=== PATIENT | female | born 1965 | race African-American/Black ===

== ENCOUNTER 2021-10-03 21:00 | Emergency (ER) | payer OTHER, SELFPAY ==
[2021-10-03] VITALS (14 sets, daily range): BP systolic 146–224; BP diastolic 75–99; PULSE 60–84; RESP 12–24; TEMP 36.1–36.3; O2SAT 98–100
--- NOTE | ~2021-10-03 | XR_ITS ---
EXAMINATION: XR chest 1V portable INDICATION: Hypertension, headache TECHNIQUE: Portable AP chest at 2124 hours COMPARISON: None available FINDINGS: The lungs are free of acute opacities. No pleural effusion or pneumothorax. The cardiomedia stinal silhouette is normal. The visualized osseous structures are unremarkable. IMPRESSION: 1. No acute cardiopulmonary abnormality. Reviewed, dictated and finalized at location A.
--- NOTE | 2021-10-03 21:14 | ECG_ITS ---
Measurements Intervals [place] Rate: 64 P: 55 [place]: 126 QRS: 0 QRSD: 87 T: 12 QT: 410 QTc: 424 Interpretive Statements SINUS RHYTHM MINIMAL VOLTAGE CRITERIA FOR LVH, CONSIDER NORMAL VARIANT BORDERLINE ECG COMPARED TO ECG 04/27/2018 09:30:55 NO SIGNIFICANT CHANGES Electronically Signed On 10-04-2021 14:34:32 CDT by Cyrus Mackey M.D.
--- NOTE | 2021-10-03 21:15 | ED.GENADULT ---
HPI - General Adult General Chief complaint: Recheck/Abnormal Lab/Rx Stated complaint: High BP, [facility] Time Seen by Provider: 10/03/21 21:08 History of Present Illness HPI narrative: 56-year-old female presents emergency room secondary hypertension. She does not have a longstanding history of hypertension but her blood pressure began running high last week. She was seen by her physician initially put her on lisinopril took that for 5 days and she does not seem to tolerate it well and switched her over to another medication. States her blood pressure did normalize but she felt like it went back up today she checked it at home as high. She has a mild headache associated with this. Denies any chest pain shortness of breath. She has no significant past medical history. She does not smoke and she occasionally drinks alcohol. She is extremely active and plays [employer] ball frequently. Related Data Allergies Allergy/AdvReac Type Severity Reaction Status Date / Time No Known Allergies Allergy Verified 10/03/21 21:10 Review of Systems Review of Systems: CONSTITUTIONAL: Denies fever, chills, or sweats. EYES: Denies visual changes, redness, or discharge. ENT: Denies rhinorrhea, congestion, sore throat, or otalgia. CARDIOVASCULAR: Denies chest pain, palpitations, or edema. RESPIRATORY: Denies cough or dyspnea. GASTROINTESTINAL: Denies abdominal pain, nausea, vomiting, or diarrhea. GENITOURINARY: Denies dysuria or hematuria. SKIN: Denies rash or itching. MUSCULOSKELETAL: Denies back pain, joint pain, or myalgia. NEUROLOGIC: Mild headache but no associated numbness or weakness PSYCHIATRIC: Denies anxiety or depression. [facility] Past Medical History Medical History Hypertension Social History Social History Smoking status: Never smoker Alcohol intake: current Alcohol use details: Social drinker only and not on a daily basis Living arrangements: with family Occupation/Education: unemployed Exam Narrative: APPEARANCE: Well appearing, no pain or distress, well-nourished. Head Normocephalic and atraumatic. EYES: PERRLA/EOMI, conjunctivae clear. NOSE: Normal with no drainage EARS:TMS clear with Carmen, with good light reflex. THROAT: Pharynx clear, no exudate. NECK: Supple. No adenopathy, no masses. RESPIRATORY: Airway patent, respirations nonlabored. Clear to auscultation bilaterally, no rales, rhonchi, wheezing. CARDIOVASCULAR: Regular rate and rhythm without murmurs, rubs, or gallops. ABDOMINAL: Soft, nontender, nondistended, no hepatosplenomegaly Musculoskeletal: Moves all extremities. Strength/ROM intact, No edema, No calf tenderness. NEURO: Alert. Cranial nerves II through XII intact. Normal gait. Good coordination. Nonfocal examination. SKIN:: Warm, dry. Normal Color PSYCHIATRIC: Normal affect/mood, normal interaction Course Vital Signs Vital signs: Vital Signs Temperature 97.0 F L 10/03/21 21:02 Pulse Rate 84 10/03/21 21:02 Respiratory Rate 18 10/03/21 21:02 Blood Pressure 224/83 H 10/03/21 21:02 Pulse Oximetry 100 10/03/21 21:02 Temperature 97.0 F L 10/03/21 21:02 Pulse Rate 64 10/03/21 21:46 Respiratory Rate 22 H 10/03/21 21:46 Blood Pressure 153/87 H 10/03/21 21:46 Pulse Oximetry 100 10/03/21 21:31 Medical Decision Making MDM Narrative Medical decision making narrative: EKG was unremarkable. Chest x-ray shows no cardiomegaly. Laboratory test including a basic metabolic panel shows normal renal function. Patient was given labetalol 20 mg IV. Blood pressure came down about 160s over 70s. Reviewed everything with the patient and her family who is at bedside. She already has a follow-up appoint with the physician next week. Told her to continue to monitor blood pressure at home and continue the current medications. Would not make any changes to her blood pressure treatmen
[2021-10-03] MEDS: LABETALOL HCL INJ 100 MG/20 ML VIAL 20 MG IV PUSH (21:27)
[2021-10-03 21:34] LABS: Anion Gap 10 mmol/L (8-16); Blood Urea Nitrogen 11 mg/dL (7-17); Calcium 9.6 mg/dL (8.4-10.2); Carbon Dioxide 29 mmol/L (22-30); Chloride 104 mmol/L (98-107); Estimated CRCL calculation 63 ml/min; Estimated Glomerular Filt Rate > 60; Glucose 122 mg/dL (65-110); Potassium 3.5 mmol/L (3.4-5.0); Sodium 143 mmol/L (137-145)
== END 2021-10-03 22:45 | disposition home or self-care (01) ==
PROVIDERS: Emergency Provider Emergency Medicine; PCP Family Medicine
DX: I10 Essential (primary) hypertension (principal)
CPT/HCPCS: 36415; 71045; 80048; 93005; 96374; 99284

== ENCOUNTER 2021-10-04 19:15 | Emergency (ER) | payer OTHER, SELFPAY ==
--- NOTE | ~2021-10-04 | CT_ITS ---
EXAMINATION: CT BRAIN W/O DATE: 10/04/2021 20:34 INDICATION: Persistent right-sided headache. TECHNIQUE: Computed tomography (CT) of the head was performed without intravenous contrast. The dose- length product was 605.33 mGy-cm. Automated exposure control and iterative reconstruction technique w ere employed. COMPARISON: CT dated 04/27/2018 FINDINGS: Normal brain parenchymal volume for age. Normal shetty-white differentiation. No acute intrac ranial hemorrhage, infarction, mass or mass effect. No ventriculomegaly or midline shift. Midline sagittal images demonstrate a normal corpus callosum, c raniovertebral junction and sella turcica. Basilar cisterns are patent. Paranasal sinuses and mastoids are pneumatized. No depressed skull fractures. IMPRESSION: 1. No acute intracranial abnormality. Reviewed, dictated and finalized at location A.
[2021-10-04 19:22] VITALS: BP 149/86; PULSE 69; RESP 18; TEMP 36.5; O2SAT 100
[2021-10-04 19:51] VITALS: BP 140/77; O2SAT 100
--- NOTE | 2021-10-04 19:57 | ED.HA ---
HPI - Headache General Chief Complaint: Headache Stated Complaint: HTN Time Seen by Provider: 10/04/21 19:48 History of Present Illness HPI Narrative: 56-year-old female presents emergency room secondary to high blood pressure and a right-sided headache. I saw this patient in emergency room yesterday and her blood pressure was able to be treated and normalized. Chemistry panel performed at that time also was normal. She states that today her blood pressure seem to be going higher and she has a persistent right-sided headache. She does not have a history of headaches up until about a week ago when her blood pressure became out of control. She was initially seen about 7 or 8 days ago and started on lisinopril 20 mg/day. Had a continued headache so her doctor switched her over and put her on a different medication for blood pressure. She denies any visual problems. No numbness or tingling arms or legs. No nausea vomiting. Related Data Home Medications Medication Instructions Recorded Confirmed losartan 50 mg tablet mg 10/04/21 Allergies Allergy/AdvReac Type Severity Reaction Status Date / Time No Known Allergies Allergy Verified 10/04/21 19:27 Review of Systems Review of Systems: CONSTITUTIONAL: Denies fever, chills, or sweats. EYES: Denies visual changes, redness, or discharge. ENT: Denies rhinorrhea, congestion, sore throat, or otalgia. CARDIOVASCULAR: Denies chest pain, palpitations, or edema. RESPIRATORY: Denies cough or dyspnea. GASTROINTESTINAL: Denies abdominal pain, nausea, vomiting, or diarrhea. GENITOURINARY: Denies dysuria or hematuria. SKIN: Denies rash or itching. MUSCULOSKELETAL: Denies back pain, joint pain, or myalgia. NEUROLOGIC: Having right-sided headache but no associated numbness, tingling, or weakness. No visual problems. PSYCHIATRIC: Denies anxiety or depression. PMFSH Past Medical History Medical History Hypertension Social History Social History Smoking status: Never smoker Alcohol intake: current Alcohol use details: Social drinker only and not on a daily basis Exam Narrative: APPEARANCE: Well appearing, no pain or distress, well-nourished. Head Normocephalic and atraumatic. EYES: PERRLA/EOMI, conjunctivae clear. NOSE: Normal with no drainage EARS:TMS clear with Carmen, with good light reflex. THROAT: Pharynx clear, no exudate. NECK: Supple. No adenopathy, no masses. RESPIRATORY: Airway patent, respirations nonlabored. Clear to auscultation bilaterally, no rales, rhonchi, wheezing. CARDIOVASCULAR: Regular rate and rhythm without murmurs, rubs, or gallops. ABDOMINAL: Soft, nontender, nondistended, no hepatosplenomegaly Musculoskeletal: Moves all extremities. Strength/ROM intact, No edema, No calf tenderness. NEURO: Alert. Cranial nerves II through XII intact. Normal gait. Good coordination. Nonfocal examination. SKIN:: Warm, dry. Normal Color PSYCHIATRIC: Normal affect/mood, normal interaction Course Vital Signs Vital signs: Vital Signs Temperature 97.7 F 10/04/21 19:22 Pulse Rate 69 10/04/21 19:22 Respiratory Rate 18 10/04/21 19:22 Blood Pressure 149/86 H 10/04/21 19:22 Pulse Oximetry 100 10/04/21 19:22 Oxygen Delivery Room Air 10/04/21 19:22 Temperature 97.7 F 10/04/21 19:22 Pulse Rate 69 10/04/21 19:22 Respiratory Rate 18 10/04/21 19:22 Blood Pressure 151/79 H 10/04/21 20:01 Pulse Oximetry 98 10/04/21 20:01 Oxygen Delivery Room Air 10/04/21 19:22 MDM - Headache MDM Narrative Medical decision making narrative: CT scan of her head was unremarkable and the patient was reassured by this. Blood pressure has remained normal in the emergency department. We will give the patient a prescription for Catapres 0.1 mg tablets to take 1 every 8 hours as needed for systolic blood pressure greater 180 or diastolic greater than
[2021-10-04 20:01] VITALS: BP 151/79; O2SAT 98
[2021-10-04 21:02] VITALS: BP 147/90; PULSE 66; RESP 18; O2SAT 100
== END 2021-10-04 21:04 | disposition home or self-care (01) ==
PROVIDERS: Emergency Provider Emergency Medicine; PCP Family Medicine
DX: I10 Essential (primary) hypertension (principal); R51.9 Headache, unspecified
CPT/HCPCS: 70450; 99284

== ENCOUNTER 2022-03-18 16:32 | Emergency (ER) | payer OTHER, SELFPAY ==
--- NOTE | ~2022-03-18 | XR_ITS ---
EXAMINATION: XR chest 2V 03/18/2022 19:12 INDICATION: Chest pain and tightness PROCEDURE: 2 view chest COMPARISON: 10/03/2021 FINDINGS: The lungs are clear. The cardiomediastinal silhouette is within normal limits. There are no pleural effusions. There is no pneumothorax suspected. IMPRESSION: 1: NO ACUTE CARDIOPULMONARY DISEASE. Reviewed, dictated and finalized at location A. ARIAL INTERN
[2022-03-18 16:46] VITALS: BP 151/88; PULSE 69; RESP 14; TEMP 36.7; O2SAT 100
--- NOTE | 2022-03-18 18:17 | ECG_ITS ---
Measurements Intervals [place] Rate: 60 P: 51 [place]: 137 QRS: -6 QRSD: 77 T: 34 QT: 411 QTc: 412 Interpretive Statements SINUS RHYTHM RSR' IN V1 OR V2, PROBABLY NORMAL VARIANT VOLTAGE CRITERIA FOR LVH BORDERLINE ECG COMPARED TO ECG 10/03/2021 21:37:27 NO SIGNIFICANT CHANGES Electronically Signed On 03-18-2022 20:27:15 YARD JOCKEY by Anurag Dunbar D.O.
[2022-03-18 18:28] LABS: Basophils Percent Auto 0.3 % (0.2-1.2); Eosinophils Absolute Auto 0.2 K/mm3 (0-0.3); Hematocrit 40.3 % (37.0-47.0); Hemoglobin 13.4 g/dL (12.0-15.0); Immature Granulocyte Absolute 0.02 K/mm3 (0.00-0.031); Immature Granulocyte Percent A 0.2 % (0-0.5); Lymphocytes Absolute Auto 2.62 K/mm3 (0.9-3.2); Lymphocytes Percent Auto 27.8 % (18.3-44.2); Mean Corpuscular HGB Conc 33.3 g/dl (32-36); Mean Corpuscular Hemoglobin 30.2 pg (26-34); Mean Corpuscular Volume 90.8 fl (80-100); Mean Platelet Volume 11.5 fl (7.4-10.4); Monocytes Absolute Auto 0.5 K/mm3 (0.1-0.6); Monocytes Percent Auto 5.6 % (2.6-8.5); Neutrophils Absolute Auto 6.1 K/mm3 (1.3-6.7); Neutrophils Percent Auto 64.1 % (45.5-73.1); Platelet Count Result 216 k/mm3 (150-375); Red Blood Count 4.44 M/mm3 (4.2-5.4); Red Cell Distribution Width 12.3 % (11.5-14.5); White Blood Count 9.4 K/mm3 (4.5-10.0)
--- NOTE | 2022-03-18 18:33 | ED.RECABL ---
HPI - Recheck/Abnormal Lab/Rx General Chief Complaint: Recheck/Abnormal Lab/Rx Stated Complaint: high blood pressure Time Seen by Provider: 03/18/22 17:18 History of Present Illness HPI narrative: Patient is a 56-year-old female with a history of hypertension presenting with high blood pressure. Patient states that she was going to physical therapy today when she started to feel funny. States that her face felt tight. She stopped at her PCPs office to have her blood pressure checked and it was in the 200s so they sent her to the ER. Patient also complains of a persistent headache since this summer. States it started after she had COVID. States she has an appointment with neurology in April for this. She denies numbness or weakness, vision changes, speech changes, ataxia, nausea or vomiting. No fevers or chills, chest pain, shortness of breath, leg swelling. Related Data Home Medications Medication Instructions Recorded Confirmed losartan 50 mg tablet mg 10/04/21 Allergies Allergy/AdvReac Type Severity Reaction Status Date / Time No Known Allergies Allergy Verified 03/18/22 18:16 Review of Systems Review of Systems: All systems reviewed & are unremarkable except as noted in HPI and below PMFSH Past Medical History Medical History Hypertension Social History Social History Smoking status: Never smoker Alcohol intake: current Alcohol use details: Social drinker only and not on a daily basis Living arrangements: with family Occupation/Education: unemployed Exam Narrative: GENERAL: Well-appearing, well-nourished, and in no acute distress. HEAD: Normocephalic, atraumatic. EYES: PERRLA and EOMI. ENT: Nares clear, no rhinorrhea or epistaxis. Mucous membranes moist. NECK: Supple. CHEST: Clear to auscultation. No respiratory distress. HEART: Regular rate and rhythm. No murmur heard. Normal peripheral pulses. ABDOMEN: Soft, nontender, nondistended, normal active bowel sounds. EXTREMITIES: Normal range of motion. No edema. SKIN: Warm, dry, no rash. NEURO: No focal deficits. Alert and oriented x3. PSYCH: Normal mood and affect. Course Vital Signs Vital signs: Vital Signs Temperature 98.0 F 03/18/22 16:46 Pulse Rate 69 03/18/22 16:46 Respiratory Rate 14 03/18/22 16:46 Blood Pressure 151/88 H 03/18/22 16:46 Pulse Oximetry 100 03/18/22 16:46 Oxygen Delivery Room Air 03/18/22 16:46 Temperature 98.0 F 03/18/22 16:46 Pulse Rate 67 03/18/22 20:47 Respiratory Rate 16 03/18/22 20:47 Blood Pressure 129/89 03/18/22 20:47 Pulse Oximetry 100 03/18/22 20:47 Oxygen Delivery Room Air 03/18/22 16:46 MDM - Recheck/Abnormal Lab/Rx MDM Narrative Medical decision making narrative: Patient is a 56-year-old female presenting with hypertension. Blood pressure here is 150s over 80s. Vitals are otherwise within normal limits. Patient is well-appearing and in no acute distress. Exam is remarkable for the above. Neurologically intact. EKG per my interpretation shows normal sinus rhythm, normal axis and intervals, no acute ischemic changes. It appears similar to prior EKG. Blood work is unremarkable. Normal renal function. Troponin is undetectable. Patient received a migraine cocktail and on reevaluation she is resting comfortably. She states that her headache has improved. Her last blood pressure was 130 over 90s. Discussed the reassuring work-up. Advised that she follow-up with her PCP as well as neurology regarding her ongoing headaches. Appropriate return precautions given. Patient voiced understanding and is agreeable with plan. Discharged in stable condition peer Differential Diagnosis Differential diagnosis: Likely other (hypertension, migraine, headache, anxiety) Lab Data 03/18/22 18:19 03/18/22 18:19 Labs: Lab Result
[2022-03-18 18:41] LABS: Alanine Aminotransferase 25 U/L (6-35); Albumin Level 4.5 g/dL (3.5-5.1); Alkaline Phosphatase 79 U/L (38-126); Anion Gap 5 mmol/L (8-16); Aspartate Amino Transferase 31 U/L (14-36); Bilirubin,Total 0.3 mg/dL (0.2-1.3); Blood Urea Nitrogen 9 mg/dL (7-17); Calcium 9.3 mg/dL (8.4-10.2); Carbon Dioxide 34 mmol/L (22-30); Chloride 104 mmol/L (98-107); Estimated CRCL calculation 73 ml/min; Estimated Glomerular Filt Rate > 60; Glucose 90 mg/dL (65-110); Lipase 185 U/L (23-300); Potassium 3.6 mmol/L (3.4-5.0); Sodium 143 mmol/L (137-145)
[2022-03-18 18:52] LABS: Troponin I < 0.012 ng/mL (0.000-0.034)
[2022-03-18 18:56] LABS: INR 1.1; Prothrombin Time 13.3 Seconds (11.1-14.7)
[2022-03-18 18:57] LABS: Partial Thromboplastin Time 27.7 SECONDS (22.3-36.8)
--- NOTE | 2022-03-18 19:14 | PC.NURSE ---
Assumed care of pt. at this time. Report from KOSTA Fitzgerald
[2022-03-18] MEDS: KETOROLAC 15 MG/ML VIAL (*BKC) IV PUSH (19:18)
[2022-03-18] MEDS: SODIUM CHLORIDE 0.9% IV 1,000 ML 999 ML IV CONT (19:18)
[2022-03-18] MEDS: diphenhydrAMINE HCl INJ 50 MG/ML VIAL 25 MG IV PUSH (19:18)
[2022-03-18] MEDS: PROCHLORPERAZINE EDISYLATE 10 MG/2 ML VIAL IV PUSH (19:18)
--- NOTE | 2022-03-18 19:36 | PC.NURSE ---
Patient report given to KOSTA Lombardo. All questions answered and care of patient transferred.
[2022-03-18 19:40] VITALS: BP 166/99; PULSE 60; RESP 18; O2SAT 98
[2022-03-18 20:47] VITALS: BP 129/89; PULSE 67; RESP 16; O2SAT 100
== END 2022-03-18 20:48 | disposition home or self-care (01) ==
PROVIDERS: Emergency Provider Emergency Medicine; PCP Family Medicine
DX: I10 Essential (primary) hypertension (principal); R51.9 Headache, unspecified; Z86.16 Personal history of COVID-19; R94.31 Abnormal electrocardiogram [ECG] [EKG]
CPT/HCPCS: 36415; 71046; 80053; 83690; 84484; 85025; 85610; 85730; 93005; 96361; 96374; 96375; 99284; J0780; J1200; J1885; J7030

== ENCOUNTER 2022-03-22 09:02 | Outpatient (CLI) | payer OTHER, SELFPAY ==
--- NOTE | ~2022-03-22 | US_ITS ---
US breast LT limited 03/22/2022 10:09 Indication: Mass seen on prior outside examination. Biopsy requested. Procedure: High-resolution ultrasound of the left breast in the area of concern on prior examination. Comparison: Ultrasound dated 03/15/2022 Findings: At 1:00, 7 cm from the nipple, there is an oval hypoechoic circumscribed mass with parallel orientation, no posterior features and no internal vascularity measuring 5 mm. This area blends in w ith surrounding fibroglandular tissue and is most likely benign focal fibroglandular content or benig n complicated cyst or fibroadenoma. Impression: 1: Probable benign 5 mm left breast mass. Biopsy was canceled. Short-term follow-up diagnostic left m ammogram and ultrasound recommended. BI-RADS CATEGORY 3-PROBABLY BENIGN FINDING RECOMMENDATION: 6 month follow up recommended. Reviewed, dictated and finalized at location A. ETIC COACH Impression: 1: Probable benign 5 mm left breast mass. Biopsy was canceled. Short-term follo w-up diagnostic left mammogram and ultrasound recommended. BI-RADS CATEGORY 3-PROBABLY BENIGN FINDING RECOMMENDATION: 6 month follow up recommended.
== END 2022-03-22 09:03 | disposition home or self-care (01) ==
PROVIDERS: PCP Family Medicine; Visit Provider Family Medicine
DX: R92.8 Other abnormal and inconclusive findings on diagnostic imaging of breast (principal)
CPT/HCPCS: 76642

== ENCOUNTER 2024-01-05 10:52 | Outpatient (CLI) | payer OTHER, SELFPAY ==
--- NOTE | ~2024-01-05 | MR_ITS ---
EXAMINATION: MR ankle LT wo con DATE: 01/05/2024 11:24 INDICATION: Strain of the peroneal muscle and tendon. Left ankle pain and swelling TECHNIQUE: Magnetic resonance imaging (MRI) of the left ankle was performed without intravenous contr ast. Sequences included sagittal, coronal, and axial proton-density weighted fast spin echo without a nd with fat saturation. COMPARISON: None. FINDINGS: Medial ankle ligaments: Deep and superficial deltoid ligaments as well as the spring ligament are normal. Lateral ankle ligaments: The anterior and posterior inferior tibiofibular ligaments are normal. The posterior talofibular liga ment is normal. There is attenuation of the anterior talofibular ligament without surrounding edema c onsistent with chronic relatively high-grade partial tear. Low-grade chronic sprain/mild partial tear of the calcaneofibular ligament which is normal in thickness but with mild increased signal. Tendons: Achilles tendon is normal. The peroneus longus tendon is normal. Tendinopathy of the peroneus brevis tendon with longitudinal split tear beginning at the level of the retromalleolar groove. There is pro minent expansion and increased intrasubstance signal of the tendon beginning at the level of the tip of the lateral malleolus and extending 2 cm distally. There is a celery stalk appearance of tendon fi bers extending through this region consistent with severe tendinopathy. At the distal margin of this region of tendon expansion is a more homogeneously T2 hyperintense intrasubstance ganglion cyst measu ring 4 mm in diameter 1.5 cm proximal to distal. The tibialis anterior, extensor hallucis longus, extensor digitorum longus and extensor peroneus tertius tendons are normal. The tibialis posterior, flexor digitorum longus an d flexor hallucis longus tendons are normal. Plantar fascia: Plantar aponeurosis is normal. Bones/other: Bone alignment is normal. No fracture or pathologic marrow replacing process. 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 Marrow signal is otherwise unremarkable throughout. Fluid: Small amount of fluid in the recess at the lateral aspect of the talonavicular articulation. Otherwis e physiologic amount fluid in the joint spaces. IMPRESSION: 1. Peroneus brevis longitudinal split tear with severe focal centered immediately distal to the tip o f the lateral malleolus and small associated intrasubstance ganglion cyst. Could not exclude associat ed mild partial tear although no discrete torn tear margin is appreciated. 2. Chronic lateral ankle sprain with high-grade partial tear of the anterior talofibular ligament and low-grade sprain/partial tear of the calcaneofibular ligament. 2. 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 Reviewed, dictated and finalized at location B. THERAPY TEACHER IMPRESSION: 1. Peroneus brevis longitudinal split tear with severe focal centered immediate ly distal to the tip of the lateral malleolus and small associated intrasubstan ce ganglion cyst. Could not exclude associated mild partial tear although no di screte torn tear margin is appreciated. 2. Chronic lateral ankle sprain with high-grade partial tear of the anterior ta lofibular ligament and low-grade sprain/partial tear of the calcaneofibular lig ament. 2. 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
== END 2024-01-05 10:53 | disposition home or self-care (01) ==
LOC: MICIMG 10:53
PROVIDERS: PCP Physician Assistant; Visit Provider Orthopaedic Surgery
DX: S86.312A Strain of muscle(s) and tendon(s) of peroneal muscle group at lower leg level, left leg, initial encounter (principal); S93.492A Sprain of other ligament of left ankle, initial encounter; M19.072 Primary osteoarthritis, left ankle and foot; M94.272 Chondromalacia, left ankle and joints of left foot; X58.XXXA Exposure to other specified factors, initial encounter
CPT/HCPCS: 73721

== ENCOUNTER 2024-03-09 08:26 | Outpatient (CLI) | payer OTHER, SELFPAY ==
--- NOTE | 2024-03-09 08:30 | ECG_ITS ---
Test Date: 2024-03-09 08:43:16 Measurements Intervals [place] Rate: 75 P: 61 [place]: 136 QRS: 0 QRSD: 98 T: 4 QT: 368 QTc: 411 Interpretive Statements SINUS RHYTHM INCOMPLETE RIGHT BUNDLE BRANCH BLOCK [90+ ms QRS DURATION, TERMINAL R IN V1/V2, 40+ ms S IN I/aVL/V4/V5/V6] No previous ECG available for comparison Electronically Signed On 03-09-2024 14:46:16 PROCESS DEVELOPMENT CHEMIST by Kevin Wei M.D.
--- OUTSIDE RECORDS SUMMARY | 2024-03-15 05:31 | XMS_ITS | Continuity of Care Document ---
Author Name [facility] Organization [facility] Care Team Providers Care Staff Software Engineer Name Role Phone [facility] Unavailable Unavailable Problems Combined list of problems from Department of Defense and Veterans Affairs facilities. It does not include entries that were removed or entered in error. Problem Status Onset Date Problem Type Date of Resolution Comments Source joint pain in the left knee Active Condition DoD conditions influencing health status Active Condition DoD disturbance of gait Active Condition Do D Aftercare Following Surgery Of Musculoskeletal System Active Condition DoD Occupational Therapy Active Condition DoD Aftercare Orthopedic Active Condition DoD difficulty walking Active Condition DoD visit for: pre-procedural orthopedic exam Inactive Condition DoD synovitis and tenosynovitis hand/wrist Active Condition DoD postmenopausal bleeding Active Condition DoD neuritis lumbar Active Condition DoD Nail Discoloration Inactive Condition Do D vitamin D deficiency Active Condition DoD dermatitis Inactive Condition DoD Patient Education Active Condition DoD menopause symptomatic Active Condition DoD astigmatism regular Active Condition Do D Mammogram Screening Inactive Condition D oD pruritus ani Inactive Condition DoD oligomenorrhea Active Condition DoD viral syndrome Inactive Condition DoD visit for: exam following treatment Inactive Condition DoD presbyopia Active Condition DoD Contact Lenses Prescription And Direction Of Fitting Inactive Condition DoD dry eye syndrome Active Condition DoD conjunctivitis Inactive Condition DoD the time between periods has increased (oligomenorrhea) Active Condition DoD sinusitis acute maxillary Inactive Condition DoD visit for: laboratory Inactive Condition DoD visit for: issue repeat prescription Inactive Condition 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 DoD astigmatism Active Condition DoD refractive error - hypermetropia Active Condition DoD routine ophthalmological exam Inactive Condition DoD fracture of radius proximal end closed head Inactive Condition DoD location of accident - home Inactive Condition DoD fracture of radius proximal end closed head left Inactive Condition DoD bronchitis Inactive Condition DoD cystitis acute Inactive Condition DoD lumbago Active Condition DoD visit for: issue medical certificate Active Condition DoD Physical Examination Active Condition DoD Other Physical Therapy Active Condition DoD joint pain, localized in the knee Active Condition DoD sinusitis acute Active Condition 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, benign leiomyoma Active Condition DoD allergic rhinitis Active Condition DoD Aftercare Following Surgery Active Condition DoD venous insufficiency Active Condition DoD visit for: preoperative exam Active Condition DoD varicose veins of lower extremities with swelling Active Condition DoD varicose veins of lower extremities with pain Active Condition DoD hypoglycemia Active Condition DoD tendonitis Active Condition Right gre at toe, reassurance, stretches DoD varicose veins of lower extremities Active Condition DoD ovarian cyst Active Condition DoD dysfunctional uterine bleeding Active Condition DoD visit for: screening exam for malignant neoplasm cervix Active Condition DoD routine gynecological exam with cervical pap smear Inactive Condition Will order pelv ic ultrasound for evaluation of dysfunctional uterine bleeding, will check labs including a TSH, FSH LHThe patient was instructed to make a follow-up appointment to review lab work and ultrasound, mammogram referral pleasePreventive counseling regarding diet exercise and self breast exams discussed DoD cervical dysplasia: mild Active Condition DoD visit for: administrative purpose Inactive Condition DoD urinary tract infection Active Condition on vacation - long car ride. DoD Cervical Pap Smear Inactive Condition Do D visit for: contraceptive surveillance pill Active Condition DoD Gynecologic Services Contraceptive Management Active Condition Pt requests mini-pill while she considers IUD insertion. Rx'd Nor Q D DoD visit for: exam Inactive Condition DoD uterine scar from previous delivery Active Condition s/p counseling(see dictated admission note for further details). DOS: 03 Sep 2005 DoD preg complications: antepartum cond or prior comp delivery Active Condition [facility] rev' d. Labor/SROM/VB precautions given. DoD visit for: sterilization Inactive Condition Satisfied Parity--desiring BTL at time of repeat . Consent signed earlier in DoD allergic rhinitis Active Condition Zy rtec-D b.i.d. prescribed in [facility] one, computer down [facility] esophageal reflux Active Condition Cont Aciphex [facility] Supervision Of Normal Active Condition Labor precautions. DoD Medications Combined list of outpatient medications from Department of Defense and Veterans Affairs facilities.Medications provided include 1) outpatient medications from the last 15 months, and 2) patient-reported medications. Medication Details Route Status Patient Instructions Prescription Expires Prescription Number Last Dispense Date Ordering Provider Order Date Order Qty Source AMLODIPINE BESYLATE (amlodipine besylate), 5 MG, TABLET, ORAL, [facility], 1000 ea. BOTTLE Active [id number] 2023 90 Pharmac y Data Transac tion Service Facilit y AMOX TR-POTASSIU M CLAVULANATE (AMOXICILLI N/POTASSIUM CLAV), 875-125 MG, TABLET, ORAL, SANDOZ, 20 ea. BOTTLE Active [id number] 4 2023 20 Pharmac y Data Transac tion Service Facilit y AMOXICILLIN (AMOXICILLI N), 875MG, TABLET, ORAL, [employer]O [facility]ARM, 100 ea. BOTTLE Active [id number] 4 2023 20 Pharmac y Data Transac tion Service Facilit y DEXAMETHASO NE (dexamethas one), 6 MG, TABLET, ORAL, ALVOGEN INC, 100 ea. BOTTLE Cancele d [id number] : 2023 0 Pharmac y Data Transac tion Service Facilit y LISINOPRIL (lisinopril ), 20 MG, TABLET, ORAL, LUPIN PHARMACEU, 1000 ea. BOTTLE Active [id number] 4 2023 90 Pharmac y Data Transac tion Service Facilit y LISINOPRIL (lisinopril ), 20 MG, TABLET, ORAL, LUPIN PHARMACEU, 1000 ea. BOTTLE Active [id number] : 2023 90 Pharmac y Data Transac tion Service Facilit y PAXLOVID (EUA) (nirmatrelv ir/ritonavi r), 300-100 MG, TAB DS PK, ORAL, [facility]., 30 ea. BLIST PACK Active [id number] 2023 30 Pharmac y Data Transac tion Service Facilit y Allergies, Adverse Reactions, Alerts Combined list of allergies from Department of Defense and Veterans Affairs facilities. It does not include entries that were removed or entered in error. Substance Category Reaction Severity Reaction type Status Date Reported Comments Source No Known Allergies Drug allergy (disorder) active 04/01/2009 [facility] Immunizations Combined list of available immunizations from the Department of Defense and Veterans Affairs facilities. Immunization Series Date Given Administered By Site Reaction Lot Number CVX Code Drug Services Program Manager Status Comments Source COVID Vaccine [employer] 2020 208 PFIZER complet ed COVID Vaccine Pfizer 11/01/20 Given Ambulat ory Pharmac y COVID-19, mRNA, LNP-S, PF, 30 mcg/0.3 mL dose 2020 [facility] [place] (PFR) Not Given COVID-19, mRNA, LNP-S, PF, 30 mcg/0.3 mL dose DoD COVID Vaccine Pfizer 2020 208 PFIZER complet ed COVID Vaccine Pfizer 10/09/20 Given Ambulat ory Pharmac y COVID-19, mRNA, LNP-S, PF, 30 mcg/0.3 mL dose 2020 [facility] [place] (PFR) Not Given COVID-19, mRNA, LNP-S, PF, 30 mcg/0.3 mL dose DoD measles/mumps /rubella virus vaccine 2010 zzL t Arm [id number] Merck & Company Inc complet ed measles/m umps/rube lla virus vaccine 09/10/10 Given Ambulat ory Pharmac y measles, mumps and rubella virus vaccine 2 2010 Unknown, Provider [id number] Merck (MSD) complet ed measles, mumps and rubella virus vaccine DoD HepB, Adult [facility] Arm [id number] 43 GlaxoSmithKli ne complet ed HepB, Adult 08/04/10 Given Ambulat ory Pharmac y hepatitis B vaccine, adult dosage 3 2010 Unknown, Provider [id number] [id number] 43 SmithKline (SKB) complet ed hepatitis B vaccine, adult dosage DoD tetanus, diphtheria, acellular pertu is 2009 [facility] Arm [id number] 2AA 115 GlaxoSmithKli ne complet ed tetanus, diphtheri a, acellular pertussis 06/27/09 Given Ambulat ory Pharmac y HepB, Adult 2009 [facility] Arm [id number] 4BA 43 GlaxoSmithKli ne complet ed HepB, Adult 06/27/09 Given Ambulat ory Pharmac y hepatitis B vaccine, adult dosage 2 2009 Unknown, Provider [id number] [id number] 43 SmithKline (SKB) complet ed hepatitis B vaccine, adult dosage DoD tetanus toxoid, reduced diphtheria toxoid, and acellular pertu is vaccine, adsorbed 1 2009 Unknown, Provider [id number] 2AA 115 SmithKline (SKB) complet ed tetanus toxoid, reduced diphtheri a toxoid, and acellular pertussis vaccine, adsorbed DoD influenza virus vaccine,split 2005 zzLef t Arm [id number] [id number] 15 GlaxoSmithKli ne complet ed influenza virus vaccine,s plit 01/25/06 Given Ambulat ory Pharmac y influenza virus vaccine, split virus (incl. purified surface antigen)-reti red CODE 1 2005 Unknown, Provider [id number] 15 SmithKline (SKB) complet ed influenza virus vaccine, split virus (incl. purified surface antigen)- retired CODE DoD influenza virus vaccine, whole virus 2003 zzLef t Arm [id number] Novartis Pharmaceutica ls complet ed influenza virus vaccine, whole virus 02/25/03 Given Ambulat ory Pharmac y influenza virus vaccine, whole virus 1 2003 Unknown, Provider [id number] [employer] ls (PWJ) complet ed influenza virus vaccine, whole virus DoD tuberculin purified protein derivative 2000 zzLef t Arm [id number] [facility] Patient Tolerance : Negative Ambulat ory Pharmac y HepB, Adult 2000 zzLef t Arm [id number] 43 Merck & Company Inc complet ed HepB, Adult 10/10/00 Given Ambulat ory Pharmac y measles/mumps /rubella virus vaccine 2000 zzLef t Arm [id number] 03 Merck & Company Inc complet ed measles/m umps/rube lla virus vaccine 10/10/00 Given Ambulat ory Pharmac y measles, mumps and rubella virus vaccine 1 2000 Unknown, Provider [id number] 03 Merck (MSD) complet ed measles, mumps and rubella virus vaccine DoD hepatitis B vaccine, adult dosage 1 2000 Unknown, Provider [id number] 43 Merck (MSD) complet ed hepatitis B vaccine, adult dosage DoD tuberculin skin test; purified protein derivative solution, intradermal 1 2000 Unknown, Provider [id number] [place] (CON) complet ed tuberculi n skin test; purified protein derivativ e solution, intraderm al DoD Vital Signs Combined list of inpatient and outpatient Vital Signs from Department of Defense and Veterans Affairs, ranging from 12 months to all on record, depending upon the facility. Vital Sign Value Date Comments Source No data available for this section Ambulatory Pharmacy Encounters Combined list of: 1) Encounters from Department of Veterans Affairs facilities going back up to thelast 18 months. 2) Encounters from the Department of Defense facilities going back up to 280 months. Location Location Details Encounter Type Encounter Number Reason For Visit Attending Provider ADM Date DC Date Status Disposition Source [facility](Obs tetrics EG) OUTPATIENT [id number] 33week cob RADHA MAHER Tea 07/21 Released w/o Limitations [facility](O bstetri cs EG) [facility](Obs tetrics EG) OUTPATIENT [id number] ZENOBIA KNIGHT 08/05 Released w/o Limitations [facility](O bstetri cs EG) [facility](Obs tetrics EG) OUTPATIENT [id number] 37 wks CARA KATHARINE ANGELO L 08/17 Released w/o Limitations [facility](O bstetri cs EG) [facility](Obs tetrics EG) OUTPATIENT [id number] 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 CARA TYLER ANGELO L 08/25 Released w/o Limitations [facility](O bstetri cs EG) [facility] DIRECT TO [facility] FROM OTHER THAN ER OR [facility] [id number] CARAANGELO PATEL L 09/03 DISCHARGED HOME [facility] [address] [facility](Ob Clinic Contracto r) OUTPATIENT [id number] 6 week PP JCS IGNACIA FRASER 10/14 Released w/o Limitations [facility](O b Clinic Contrac tor) [facility](Toy Stuffer Clinic-Co ntractor) TELE CONSULT [id number] WK RELEASE IGNACIA FRASER 11/12 [facility](G yn Clinic- Contrac tor) [facility](Dianna jacobo Care [facility]or) TELE CONSULT [id number] poss MATIAS POWELL 02/03 [facility](P rimary Care [facility]or) [facility](Fam isabel Medicine Residency ) TELE CONSULT [id number] FIVE PIECE EXPANSION MAKER HAND JUANY DIXON 02/02 NASEEM PAYNE 02/03 [facility](F amily Medicin e Residen ) [facility](Obs tetrics EG) TELE CONSULT [id number] Pt. returni ng your call. LENORA GLOVER 03/21 [facility](O bstetri cs EG) [facility](Toy Stuffer ecology EG) OUTPATIENT [id number] LUCILA Agee 04/05 Released w/o Limitations [facility](G ynecolo gy EG) [facility] Alexis SHEARER ([facility]Toy Stuffer ecology) OUTPATIENT [id number] walk in uti clinic\ J LUIS RAYA 01/20 Released w/o Limitations [facility] Alexis SHEARER ([facility])(G ynecolo gy) [facility](Fam isabel Health [facility] Cl Eg) TELE CONSULT [id number] Mammo Referra l and BCP RAOUL PAOLA Ashby 03/06 [facility](F amily Health [facility] Cl Eg) [facility](Fam isabel [facility] Cl Eg) OUTPATIENT [id number] WWE. MATIAS ANGULO N 04/03 Released w/o Limitations [facility](F amily Health [facility] Cl Eg) [facility](Fam isabel [facility] Cl Eg) TELE CONSULT [id number] needs hcg akiko PAOLA SILVEIRA 04/24 [facility](F amily [facility] Cl Eg) [facility](Fam isabel [facility] Cl Eg) TELE CONSULT [id number] HCG results RAOUL PAOLA Ashby 04/26 [facility](F amily [facility] Cl Eg) [facility](Fam isabel [facility] Cl Eg) OUTPATIENT [id number] f/u US results per PCM request MATIAS ANGULO 05/16 Released w/o Limitations [facility](F amily [facility] Cl Eg) [facility](Per ipheral Vascular Surgery Cl) OUTPATIENT [id number] VARICOS E VEINS NATALIA BENNETT 05/24 Released w/o Limitations [facility](P eripher al Vascula r Surgery Cl) [facility](Fam [facility] Cl Eg) TELE CONSULT [id number] PAOLA SILVEIRA 06/08 [facility](F [facility] Cl Eg) [facility](Per ipheral Vascular Surgery Cl) OUTPATIENT [id number] US Doppler NATALIA BENNETT 08/22 Released w/o Limitations [facility](P eripher al Vascula r Surgery Cl) [facility](Per ipheral Vascular Surgery Cl) OUTPATIENT [id number] preop NATALIA BENNETT 10/30 Released w/o Limitations [facility](P eripher al Vascula r Surgery Cl) [facility](Per ipheral Vascular Surgery Cl) OUTPATIENT [id number] f/u right vnus NATALIA BENNETT 11/28 Released w/o Limitations [facility](P eripher al Vascula r Surgery Cl) [facility](Per ipheral Vascular Surgery Cl) OUTPATIENT [id number] sclerot herapy NATALIA BENNETT 12/28 Released w/o Limitations [facility](P eripher al Vascula r Surgery Cl) [facility](Fam [facility] Eg) TELE CONSULT [id number] Rx Refills MATIAS ANGULO N 04/11 [facility](F amily [facility] Cl Eg) [facility](Fam is[facility] Eg) OUTPATIENT [id number] Annual pap.... CC MATIAS ANGULO N 05/08 Released w/o Limitations [facility](F amily [facility] Cl Eg) [facility](Fam is[facility] Cl Eg) TELE CONSULT [id number] SHANNON TAPIA 05/09 [facility](F amily [facility] Cl Eg) [facility](Per ipheral Vascular Surgery Cl) OUTPATIENT [id number] sclero NATALIA BENNETT 05/10 Released w/o Limitations [facility](P eripher al Vascula r Surgery Cl) [facility](Fam is[facility] Eg) OUTPATIENT [id number] f/u labs... jlm MATIAS ANGULO N 06/17 Released w/o Limitations [facility](F amily [facility] Cl Eg) [facility](Ort hopedic EG) OUTPATIENT [id number] OSTEOCH ONDRITI S DISSECA DIANE TOURE 07/09 Released w/o Limitations [facility](O rthoped ic EG) [facility](Ort hopedic EG) OUTPATIENT [id number] LEFT KNEE PAIN PER EDITH HIGGINS 07/12 Released w/o Limitations [facility](O rthoped ic EG) [facility](Phy sical Therapy 0024) OUTPATIENT [id number] joint pain, localiz ed in the knee YOLANDA COLINDRES Margarita 07/24 Released w/o Limitations [facility](P hysical Therapy 0024) [facility](Phy sical Therapy 0024) OUTPATIENT [id number] KAMLESH SMYTH 07/29 Released w/o Limitations [facility](P hysical Therapy 0024) [facility](Fam is[facility] Eg) OUTPATIENT [id number] WWE/PAP ..BES RODO PHAM 04/01 Released w/o Limitations [facility](F [facility] Cl Eg) [facility](Per ipheral Vascular Surgery Cl) OUTPATIENT [id number] NATALIA RODRÍGUEZ 04/11 Released w/o Limitations [facility](P eripher al Vascula r Surgery Cl) [facility](Fam isabel Advocacy- Count) OUTPATIENT [id number] oversea s WILY Ellison 07/02 Released w/o Limitations [facility](F amily Advocac y-Count ) [facility] isabel [facility] Cl Eg) OUTPATIENT [id number] back pain ALBA BOB ARMANDO 07/24 Released w/o Limitations [facility](F [facility] Cl Eg) [facility](Per ipheral Vascular Surgery Cl) OUTPATIENT [id number] NATALIA Rodríguez 10/02 Released w/o Limitations [facility](P eripher al Vascula r Surgery Cl) [facility] ent Care Clinic) OUTPATIENT [id number] Poss UTI NASEEM MARIANO 11/01 Released w/o Limitations [facility](U rgent Care Clinic) [facility] isabel Practice Clinic) OUTPATIENT [id number] discuss back issues/ control from prev base MARIELA GONZALEZ 12/28 Released w/o Limitations [facility](F amily Practic e Clinic) [facility](Phy sical Therapy) OUTPATIENT [id number] NASEEM Mckeon 01/12 Released w/o Limitations [facility](P hysical Therapy ) [facility](Phy sical Therapy) OUTPATIENT [id number] f/u for back NASEEM MARINO 01/27 Released w/o Limitations [facility](P hysical Therapy ) [facility] isabel Practice Clinic) TELE CONSULT [id number] GONZALEZMARIELA LOVETT Tara 02/04 [facility](F amily Practic e Clinic) [facility](Phy sical Therapy) OUTPATIENT [id number] f/u back NASEEM MARINO 03/10 Released w/o Limitations [facility](P hysical Therapy ) [facility] isabel Practice Clinic) OUTPATIENT [id number] sore throat, red spots in mouth MARIELA GONZALEZ Tara 03/22 Released w/o Limitations [facility](F amily Practic e Clinic) [facility](Urg ent Care Clinic) OUTPATIENT [id number] fell on ice SALONI NATALIA Rosalie 03/30 Released w/o Limitations [facility](U rgent Care Clinic) [facility](Ort hopedic Clinic) OUTPATIENT [id number] closed fractur e head of the radius SAWADEN 04/07 Released with Work/Duty Limitations [facility](O rthoped ic Clinic) [facility](Ort hopedic Clinic) OUTPATIENT [id number] f/u range of motion & L elbow SAW ADEN Mena 04/19 Released with Work/Duty Limitations [facility](O rthoped ic Clinic) [facility](Ort hopedic Clinic) OUTPATIENT [id number] POLY ADEN Mena 05/18 Released with Work/Duty Limitations [facility](O rthoped ic Clinic) [facility](Ort hopedic Clinic) OUTPATIENT [id number] f/u for L elbow SAWADEN 06/10 Released with Work/Duty Limitations [facility](O rthoped ic Clinic) [facility](Opt ometry Clinic) OUTPATIENT [id number] eye exam, pt wears glasses and contact s MATHEW SELLERS 07/14 Released w/o Limitations [facility](O ptometr y Clinic) [facility] isabel Practice [facility]) TELE CONSULT [id number] Allergy issues/ Medicat ion/Lab s JOSEFINA LOW 07/23 Released to Self Care [facility](F amily Practic e Clinic) [facility] Practice [facility]) OUTPATIENT [id number] poss sinus infecti on BLANK WRIGHT 08/20 Released w/o Limitations [facility](F amily Practic e Clinic) [facility](Urg ent Care Clinic) OUTPATIENT [id number] Eye irritat ion NASEEM MARIANO 10/11 Released w/o Limitations [facility](U rgent Care Clinic) [facility](Opt ometry Clinic) OUTPATIENT [id number] Eye irritat ion while using CL ARLYN MARRUFO 12/22 Released w/o Limitations [facility](O ptometr y Clinic) [facility](Opt ometry Clinic) OUTPATIENT [id number] F/U showtim e 1530 ARLYN MARRUFO 01/13 Released w/o Limitations [facility](O ptometr y Clinic) [facility](Opt ometry Clinic) OUTPATIENT [id number] Pt here for cl's eval OU ARLYN MARRUFO 01/22 Released w/o Limitations [facility](O ptometr y Clinic) [facility](Opt ometry Clinic) OUTPATIENT [id number] CL f/u ARLYN MARRUFO 02/18 Released w/o Limitations [facility](O ptometr y Clinic) [facility](Opt ometry Clinic) OUTPATIENT [id number] Cl f/u ARLYN MARRUFO 02/25 Released w/o Limitations [facility](O ptometr y Clinic) [facility] Team B) OUTPATIENT [id number] vomitin g ,fever and congeti ons NATALIA KINSEY 03/11 Released w/o Limitations [facility] [employer](Brian brito [facility] Team B) [facility] Team A) OUTPATIENT [id number] no menstru al for 6 mnths AQUILINO BEARDEN 05/16 Released w/o Limitations [facility] Team A) [facility](Opt ometry Clinic) OUTPATIENT [id number] REE F/u ARLYN MARRUFO E 10/17 Released w/o Limitations [facility](O ptometr y Clinic) [facility](Int ernal Medicine Clinic) OUTPATIENT [id number] f/u labs 15m EVON CHRISTOPHER 10/30 Released w/o Limitations [facility](I nternal Medicin e Clinic) [facility](Opt ometry Clinic) OUTPATIENT [id number] F/u for contact lens MARRUFOARLYN Curran E 12/12 Released w/o Limitations [facility](O ptometr y Clinic) [facility](Int ernal Medicine Clinic) OUTPATIENT [id number] F/U MEDS 15M EVON CHRISTOPHER 12/14 Released w/o Limitations [facility](I nternal Medicin e Clinic) [facility](Opt ometry Clinic) OUTPATIENT [id number] f/u for contact lens fitting ARLYN MARRUFO E 01/10 Released w/o Limitations [facility](O ptometr y Clinic) [facility] Team B) OUTPATIENT [id number] knee pain ROMAN LEMA 01/30 Released w/o Limitations [facility] Team B) [facility] Team A) TELE CONSULT [id number] Notes Entered by: ALEX LEMA 09 Feb 2012 1544 ------- ------- ------- ------- -- Mri request ROMAN LEMA 02/08 [facility] Team A) [facility](Ort hopedic Clinic) OUTPATIENT [id number] joint pain, localiz ed in the lt knee ALEXIA BRYANT X 03/23 Released w/o Limitations [facility](O rthoped ic Clinic) [facility](Int ernal Medicine Clinic) OUTPATIENT [id number] f/u meds/ba ck pain EVNO CHRISTOPHER 04/03 Released w/o Limitations [facility](I nternal Medicin e Clinic) [facility](Ort hopedic Clinic) OUTPATIENT [id number] lt knee,PA LISBETH Marino 04/18 Released w/o Limitations [facility](O rthoped ic Clinic) [facility](Phy sical Therapy) OUTPATIENT [id number] lumbago with lle radicul opathy, trial therapy /tens unit MANDY MERRILL 04/24 Released w/o Limitations [facility](P hysical Therapy ) [employer](Phy sical Therapy) OUTPATIENT [id number] MAIK Nicholas 04/28 Released w/o Limitations [employer](P hysical Therapy ) [employer](Phy sical Therapy) OUTPATIENT [id number] lower back MAIK BURNHAM 05/14 Released w/o Limitations [employer](P hysical Therapy ) [employer](Phy sical Therapy) OUTPATIENT [id number] lower back BIRMINGHAMERNESTO 05/17 Released w/o Limitations [employer](P hysical Therapy ) [employer](Phy sical Therapy) OUTPATIENT [id number] lower back MAIK BURNHAM 05/22 Released w/o Limitations [employer](P hysical Therapy ) [employer](Phy sical Therapy) OUTPATIENT [id number] lower back MAIK BURNHAM 05/24 Released w/o Limitations [employer](P hysical Therapy ) [employer](Phy sical Therapy) OUTPATIENT [id number] MAIK BURNHAM 06/08 Released w/o Limitations [employer](P hysical Therapy ) [employer](Phy sical Therapy) OUTPATIENT [id number] MAIK BURNHAM 06/12 Released w/o Limitations [employer](P hysical Therapy ) [employer](Phy sical Therapy) OUTPATIENT [id number] MAIK Nicholas 06/14 Released w/o Limitations [employer](P hysical Therapy ) [employer](Mis radha [facility] Team B) OUTPATIENT [id number] PERSONA L ISSUES FAUSTINO CLARK 06/29 Released w/o Limitations [employer]([facility] Team B) [facility]) OUTPATIENT [id number] eval on left knee ANTOINE JUSTICE 09/29 Released w/o Limitations [facility] [employer]([facility] Team B) OUTPATIENT [id number] checkup FAUSTINO CLARK 11/07 Released w/o Limitations [employer]([facility] Team B) [employer](Ort hopedic Clinic) OUTPATIENT [id number] left knee pain f/u LISBETH MCDANIELS 11/21 Released w/o Limitations [employer](O rthoped ic Clinic) [facility]) OUTPATIENT [id number] DOS 30OCT RESHMA LEFT KNEE OCA TRANSPL ANT ANTOINE JUSTICE R 12/18 Released w/o Limitations [facility] [facility] [place] DIRECT TO [facility] FROM OTHER THAN ER OR [facility] [id number] ANTOINE JUSTICE R 12/19 DISCHARGED HOME [facility] [place] INPATIENT [id number] Notes Entered by: MATHEW MATTSON 21 Dec 2012 1013 ------- ------- ------- ------- -- Inpt PT MATHEW MATTSON 12/21 Inpatient- Still a Patient [facility] [place] INPATIENT [id number] Notes Entered by: CASTILLO CHOI 21 Dec 2012 1207 ------- ------- ------- ------- -- Inishane EARL Brannon O.T. 12/21 Inpatient- Still a Patient [facility] [place] INPATIENT [id number] RO ALAN Brian 12/22 Inpatient- Still a Patient [facility] [facility] INPATIENT [id number] Notes Entered by: Seymour JULES 22 Dec 2012 1510 ------- ------- ------- ------- -- Inpt PT TRAVIS WILKINS 12/23 Inpatient- Still a Patient [facility] [facility] INPATIENT [id number] Notes Entered by: Tara GALAN 23 Dec 2012 1114 ------- ------- ------- ------- -- inpt PT AQUILINO GALAN 12/23 Inpatient- Still a Patient [facility] [facility] INPATIENT [id number] Notes Entered by: ASHER BAIRES 24 Dec 2012 1255 ------- ------- ------- ------- -- Inpatie nt physica l therapy MARIELA JHA 12/24 Inpatient- Still a Patient [facility] [place] [facility] OUTPATIENT [id number] Notes Entered by: TIM HERNANDEZ 24 Dec 2012 1907 ------- ------- ------- ------- -- Case Managem ent CAMERON HERNANDEZ 12/25 Released w/o Limitations [facility] [facility]) OUTPATIENT [id number] s/p L/K OCA A/E dos Nov ANTOINE JUSTICE 12/26 Released w/o Limitations [facility] [facility]) [place] [id number] LEFT knee OCA transpl ant, air evac from SARAH Borjas 12/27 [place] Limitations [facility] [facility] [id number] i treatme nt per LT. DELMAR NOVAK 12/27 [place] Limitations [facility] [facility]IENT [id number] treatme nt JANES العراقي 12/28 [place]/o Limitations [facility] [facility]IENT [id number] treatme nt JANES العراقي 12/29 [place] Limitations [facility] [facility]IENT [id number] treatme nt DELMAR NOVAK 01/02 [place] Limitations [facility] [facility]IENT [id number] treatme nt\ DELMAR NOVAK 01/03 [place] w/o Limitations [facility] [facility] [place] [facility]PATIENT [id number] treatme nt JANES العراقي 01/04 [place] w/o Limitations [facility] [facility] [id number] Notes Entered by: TIM HERNANDEZ 04 Jan 2013 1615 ------- ------- ------- ------- -- Case Managem ent CAMERON HERNANDEZ 01/05 [place]ased [place]itations [facility] [facility] [id number] f/u on left knee RESHMASHAYNEJEMAL Pacheco 01/05 [place]itations [facility] [facility] [facility] [id number] treatme nt DELMAR NOVAK 01/05 Released w/o Limitations [facility] [employer](Sergio e Managemen t Services) TELE CONSULT [id number] Notes Entered by: BRENNAAMYSA Metcalf 10 Jan 2013 0904 ------- ------- ------- ------- -- Follow up AE/Lowe r extremi ty rpr BRENNAAMYSA Metcalf 01/10 Referred for Appointment [employer](C ase Managem ent Service s) [employer](Ort hopedic Clinic) OUTPATIENT [id number] post op lt knee HARLEY CONTRERAS L 01/10 Released with Work/Duty Limitations [employer](O rthoped ic Clinic) [employer](Phy sical Therapy) OUTPATIENT [id number] post op lt knee MANDY MERRILL S 01/11 Released w/o Limitations [employer](P hysical Therapy ) [employer](Phy sical Therapy) OUTPATIENT [id number] post op lt knee MARIELA ELDER N 01/16 Released w/o Limitations [employer](P hysical Therapy ) [employer](Phy sical Therapy) OUTPATIENT [id number] post op lt knee MARIELA ELDER N 01/22 Released w/o Limitations [employer](P hysical Therapy ) [employer](Phy sical Therapy) OUTPATIENT [id number] post op lt knee MARIELA ELDER N 01/24 Released w/o Limitations [employer](P hysical Therapy ) [employer](Phy sical Therapy) OUTPATIENT [id number] post op lt knee MARIELA ELDER N 01/26 Released w/o Limitations [employer](P hysical Therapy ) [employer](Phy sical Therapy) OUTPATIENT [id number] post op lt knee MARIELA ELDER N 01/28 Released w/o Limitations [employer](P hysical Therapy ) [employer](Phy sical Therapy) OUTPATIENT [id number] post op lt knee MARIELA ELDER N 01/31 Released w/o Limitations [employer](P hysical Therapy ) [employer](Phy sical Therapy) OUTPATIENT [id number] post op lt knee MARIELA ELDER N 02/02 Released w/o Limitations [employer](P hysical Therapy ) [employer](Phy sical Therapy) OUTPATIENT [id number] post op lt knee MARIELA ELDER N 02/04 Released w/o Limitations [employer](P hysical Therapy ) [employer](Ort hopedic Clinic) OUTPATIENT [id number] post op lt knee HARLEY CONTRERAS 02/06 Released with Work/Duty Limitations [employer](O rthoped ic Clinic) [employer](Phy sical Therapy) OUTPATIENT [id number] post op lt knee MARIELA ELDER N 02/07 Released w/o Limitations [employer](P hysical Therapy ) [employer](Phy sical Therapy) OUTPATIENT [id number] Afterca re Followi ng Surgery Of Musculo skeleta l MANDY Cummings 02/09 Released w/o Limitations [employer](P hysical Therapy ) [employer](Phy sical Therapy) OUTPATIENT [id number] MARIELA ELDER N 02/13 Released w/o Limitations [employer](P hysical Therapy ) [employer](Phy sical Therapy) OUTPATIENT [id number] MARIELA ELDER N 02/16 Released w/o Limitations [employer](P hysical Therapy ) [employer](Phy sical Therapy) OUTPATIENT [id number] ERNESTO BIRMINGHAM 02/20 Released w/o Limitations [employer](P hysical Therapy ) [employer](Phy sical Therapy) OUTPATIENT [id number] ERNESTO BIRMINGHAM 02/23 Released w/o Limitations [employer](P hysical Therapy ) [employer](Phy sical Therapy) OUTPATIENT [id number] ERNESTO BIRMINGHAM 03/01 Released w/o Limitations [employer](P hysical Therapy ) [employer](Phy sical Therapy) OUTPATIENT [id number] MARIELA ELDER N 03/04 Released w/o Limitations [employer](P hysical Therapy ) [employer](Ort hopedic Clinic) OUTPATIENT [id number] F/U post op lt knee HARLEY CONTRERAS 03/06 Released with Work/Duty Limitations [employer](O rthoped ic Clinic) [employer](Int ernal Medicine Clinic) TELE CONSULT [id number] Notes Entered by: Magdy SMITH 07 Mar 2013 1104 ------- ------- ------- ------- -- med refill calcium w/ vit D EUGENE BRAND 03/07 Released to [employer](I nternal Medicin e Clinic) [employer](Phy sical Therapy) OUTPATIENT [id number] MARIELA ELDER N 03/07 Released w/o Limitations [employer](P hysical Therapy ) [employer](Phy sical Therapy) OUTPATIENT [id number] lt knee MANDY MERRILL Magdy 03/09 Released w/o Limitations [employer](P hysical Therapy ) [employer](Phy sical Therapy) OUTPATIENT [id number] lt knee ERNESTO BIRMINGHAM Seymour 03/14 Released w/o Limitations [employer](P hysical Therapy ) [employer](Phy sical Therapy) OUTPATIENT [id number] lt knee BIRMIGNHAMERNESTO 03/16 Released w/o Limitations [employer](P hysical Therapy ) [employer](Phy sical Therapy) OUTPATIENT [id number] ERNESTO BIRMINGHAM 03/23 Released w/o Limitations [employer](P hysical Therapy ) [employer](Phy sical Therapy) OUTPATIENT [id number] lt knee MARIELA ELDER N 03/28 Released w/o Limitations [employer](P hysical Therapy ) [employer](Phy sical Therapy) OUTPATIENT [id number] lt knee MARIELA ELDER N 03/30 Released w/o Limitations [employer](P hysical Therapy ) [employer](Phy sical Therapy) OUTPATIENT [id number] lt knee MARIELA ELDER N 04/02 Released w/o Limitations [employer](P hysical Therapy ) [employer](Phy sical Therapy) OUTPATIENT [id number] lt knee MARIELA ELDER N 04/04 Released w/o Limitations [employer](P hysical Therapy ) [employer](Phy sical Therapy) OUTPATIENT [id number] lt knee MARIELA ELDER N 04/06 Released w/o Limitations [employer](P hysical Therapy ) [employer](Phy sical Therapy) OUTPATIENT [id number] lt knee ERNESTO BIRMINGHAM C 04/11 Released w/o Limitations [employer](P hysical Therapy ) [employer](Phy sical Therapy) OUTPATIENT [id number] lt knee MARIELA ELDER N 04/16 Released w/o Limitations [employer](P hysical Therapy ) [employer](Phy sical Therapy) OUTPATIENT [id number] f/u lt knee MANDY MERRILL S 04/18 Released w/o Limitations [employer](P hysical Therapy ) [employer](Phy sical Therapy) OUTPATIENT [id number] left knee ERNESTO BIRMINGHAM 04/20 Released w/o Limitations [employer](P hysical Therapy ) [employer](Phy sical Therapy) OUTPATIENT [id number] left knee ERNESTO BIRMINGHAM 04/22 Released w/o Limitations [employer](P hysical Therapy ) [employer]([facility] Team A) TELE CONSULT [id number] Notes Entered by: MARIA R BASS 23 Apr 2013 0940 ------- ------- ------- ------- -- BLOOD IN URINE FAUSTINO CLARK 04/23 [employer](Brian brito [facility] Team A) [employer]([facility] Team B) OUTPATIENT [id number] UTI positiv e labs COLT VILLAREAL 04/23 Released w/o Limitations [employer](Brian brito [facility] Team B) [employer](Phy sical Therapy) OUTPATIENT [id number] left knee MARIELA ELDER N 04/24 Released w/o Limitations [employer](P hysical Therapy ) [employer](Phy sical Therapy) OUTPATIENT [id number] left knee MARIELA ELDER N 04/26 Released w/o Limitations [employer](P hysical Therapy ) [employer](Phy sical Therapy) OUTPATIENT [id number] left knee MARIELA ELDER N 04/29 Released w/o Limitations [employer](P hysical Therapy ) [employer](Phy sical Therapy) OUTPATIENT [id number] left knee MARIELA ELDER N 05/02 Released w/o Limitations [employer](P hysical Therapy ) [employer](Ort hopedic Clinic) OUTPATIENT [id number] f/u post op LISBETH MCDANIELS 05/03 Released w/o Limitations [employer](O rthoped ic Clinic) [employer]([facility] radha Disease Managemen t) TELE CONSULT [id number] Notes Entered by: MARGO CEJA 03 May 2013 1609 ------- ------- ------- ------- -- Overdue Mammogr am MARGO CEJA 05/03 Referred for Appointment [employer](Brian brito Disease Managem ent) [employer](Phy sical Therapy) OUTPATIENT [id number] left knee MARIELA ELDER N 05/04 Released w/o Limitations [employer](P hysical Therapy ) [employer](Phy sical Therapy) OUTPATIENT [id number] left knee ERNESTO BIRMINGHAM Seymour 05/06 Released w/o Limitations [employer](P hysical Therapy ) [employer](Phy sical Therapy) OUTPATIENT [id number] left knee MARIELA ELDER N 05/09 Released w/o Limitations [employer](P hysical Therapy ) [employer](Phy sical Therapy) OUTPATIENT [id number] f/u left knee MANDY MERRILL 05/15 Released w/o Limitations [employer](P hysical Therapy ) [employer](Phy sical Therapy) OUTPATIENT [id number] left knee MARIELA ELDER N 05/16 Released w/o Limitations [employer](P hysical Therapy ) [employer](Phy sical Therapy) OUTPATIENT [id number] left knee MARIELA ELDER N 05/18 Released w/o Limitations [employer](P hysical Therapy ) [employer](Phy sical Therapy) OUTPATIENT [id number] left knee MARIELA ELDER N 05/20 Released w/o Limitations [employer](P hysical Therapy ) [employer](Phy sical Therapy) OUTPATIENT [id number] left MARIELA Leong N 05/24 Released w/o Limitations [employer](P hysical Therapy ) [employer](Phy sical Therapy) OUTPATIENT [id number] left knee MARIELA ELDER N 05/27 Released w/o Limitations [employer](P hysical Therapy ) [employer](Phy sical Therapy) OUTPATIENT [id number] MARIELA CARRERO N 05/29 Released w/o Limitations [employer](P hysical Therapy ) [employer](Phy sical Therapy) OUTPATIENT [id number] left MARIELA Leong N 06/07 Released w/o Limitations [employer](P hysical Therapy ) [employer](Opt ometry Clinic) OUTPATIENT [id number] ree/ contact lens rx ADEN DUVALL 06/08 Released w/o Limitations [employer](O ptometr y Clinic) [employer](Phy sical Therapy) OUTPATIENT [id number] left knee MARIELA ELDER N 06/11 Released w/o Limitations [employer](P hysical Therapy ) [employer](Phy sical Therapy) OUTPATIENT [id number] left MARIELA Leong N 06/13 Released w/o Limitations [employer](P hysical Therapy ) [employer](Phy sical Therapy) OUTPATIENT [id number] ERNESTO BIRMINGHAM 06/15 Released w/o Limitations [employer](P hysical Therapy ) [employer](Phy sical Therapy) OUTPATIENT [id number] left knee ERNESTO BIRMINGHAM 06/17 Released w/o Limitations [employer](P hysical Therapy ) [employer](Phy sical Therapy) OUTPATIENT [id number] MARIELA ELDER N 06/20 Released w/o Limitations [employer](P hysical Therapy ) [employer](Phy sical Therapy) OUTPATIENT [id number] ERNESTO BIRMINGHAM 06/21 Released w/o Limitations [employer](P hysical Therapy ) [employer](Phy sical Therapy) OUTPATIENT [id number] ERNESTO BIRMINGHAM 06/28 Released w/o Limitations [employer](P hysical Therapy ) [employer](Phy sical Therapy) OUTPATIENT [id number] left knee MANDY MERRILL S 07/02 Released w/o Limitations [employer](P hysical Therapy ) [employer](Opt ometry Clinic) OUTPATIENT [id number] DFE showtim e 14:15 ADEN DUVALL 07/03 Released w/o Limitations [employer](O ptometr y Clinic) [employer](Phy sical Therapy) OUTPATIENT [id number] lt knee MARIELA ELDER N 07/11 Released w/o Limitations [employer](P hysical Therapy ) [employer](Phy sical Therapy) OUTPATIENT [id number] lt knee MARIELA ELDER N 07/18 Released w/o Limitations [employer](P hysical Therapy ) [employer](Phy sical Therapy) OUTPATIENT [id number] lt knee ERNESTO BIRMINGHAM 07/23 Released w/o Limitations [employer](P hysical Therapy ) [employer](Phy sical Therapy) OUTPATIENT [id number] Notes Entered by: ERNESTO BIRMINGHAM 26 Jul 2013 1029 ------- ------- ------- ------- -- L knee pain ERNESTO BIRMINGHAM 07/26 Released w/o Limitations [employer](P hysical Therapy ) [employer](Phy sical Therapy) OUTPATIENT [id number] lt knee ERNESTO BIRMINGHAM 07/29 Released w/o Limitations [employer](P hysical Therapy ) [employer](Mis radha [facility] Team B) OUTPATIENT [id number] medicat ion evaluat ion AMBERFAUSTINO 08/02 Released w/o Limitations [employer](Brian brito [facility] Team B) No Facility Access History [id number] 11/03 No Facilit y Access Ambulator y Pharmacy [facility] [id number] 11/03 Ambulat ory Pharmac y Procedures Combined list of: 1) Procedures from Department of [facility] Affairs facilities [facility], not all VA non-surgical procedures are included; 2) All procedures from the Department of Defense facilities. Procedure Procedure Type Code Date Perfomer Comments [facility] e THERAPEUTIC PROCEDURE,1 OR MORE AREAS,EACH 15 MINUTES;NEUROMUSCUL AR REEDUCATION OF MOVEMENT,BALANCE,CO ORDINATION,KINESTHE TIC SENSE,POSTURE,AND/O R PROPRIOCEPTION FOR SITTING AND/OR STANDING ACTIVITIES [facility] CASE MANAGEMENT, EACH 15 MINUTES [facility] THERAPEUTIC PROCEDURE,1 OR MORE AREAS,EACH 15 MINUTES;NEUROMUSCUL AR REEDUCATION OF MOVEMENT,BALANCE,CO ORDINATION,KINESTHE TIC SENSE,POSTURE,AND/O R PROPRIOCEPTION FOR SITTING AND/OR STANDING ACTIVITIES [facility] POSTOPERATIVE FOLLOW-UP VISIT, NORMALLY INCLUDED IN THE SURGICAL PACKAGE, INDICATE THAT EVALUATION & MANAGEMENT SERVICE WAS PERFORMED DURING A POSTOPERATIVE PERIOD REASON RELATED ORIGINAL PROCEDURE [facility] THERAPEUTIC PROCEDURE,1 OR MORE AREAS,EACH 15 MINUTES;NEUROMUSCUL AR REEDUCATION OF MOVEMENT,BALANCE,CO ORDINATION,KINESTHE TIC SENSE,POSTURE,AND/O R PROPRIOCEPTION FOR SITTING AND/OR STANDING ACTIVITIES [facility] THERAPEUTIC PROCEDURE,1 OR MORE AREAS,EACH 15 MINUTES;NEUROMUSCUL AR REEDUCATION OF MOVEMENT,BALANCE,CO ORDINATION,KINESTHE TIC SENSE,POSTURE,AND/O R PROPRIOCEPTION FOR SITTING AND/OR STANDING ACTIVITIES [facility] THERAPEUTIC PROCEDURE,1 OR MORE AREAS,EACH 15 MINUTES;NEUROMUSCUL AR REEDUCATION OF MOVEMENT,BALANCE,CO ORDINATION,KINESTHE TIC SENSE,POSTURE,AND/O R PROPRIOCEPTION FOR SITTING AND/OR STANDING ACTIVITIES [facility] THERAPEUTIC PROCEDURE,1 OR MORE AREAS,EACH 15 MINUTES;NEUROMUSCUL AR REEDUCATION OF MOVEMENT,BALANCE,CO ORDINATION,KINESTHE TIC SENSE,POSTURE,AND/O R PROPRIOCEPTION FOR SITTING AND/OR STANDING ACTIVITIES [facility] THERAPEUTIC PROCEDURE,1 OR MORE AREAS,EACH 15 MINUTES;NEUROMUSCUL AR REEDUCATION OF MOVEMENT,BALANCE,CO ORDINATION,KINESTHE TIC SENSE,POSTURE,AND/O R PROPRIOCEPTION FOR SITTING AND/OR STANDING ACTIVITIES [facility] PHYSICAL THERAPY EVALUATION [facility] POSTOPERATIVE FOLLOW-UP VISIT, NORMALLY INCLUDED IN THE SURGICAL PACKAGE, INDICATE THAT EVALUATION & MANAGEMENT SERVICE WAS PERFORMED DURING A POSTOPERATIVE PERIOD REASON RELATED ORIGINAL PROCEDURE [facility] CASE MANAGEMENT, EACH 15 MINUTES [facility] EXCISION OF SEMILUNAR CARTILAGE OF KNEE [facility] OTHER REPAIR OF KNEE [facility] THERAPEUTIC PROCEDURE, 1 OR MORE AREAS, EACH 15 MINUTES; THERAPEUTIC EXERCISES TO DEVELOP STRENGTH AND ENDURANCE, RANGE OF MOTION AND FLEXIBILITY [facility] POSTOPERATIVE FOLLOW-UP VISIT, NORMALLY INCLUDED IN THE SURGICAL PACKAGE, INDICATE THAT EVALUATION & MANAGEMENT SERVICE WAS PERFORMED DURING A POSTOPERATIVE PERIOD REASON RELATED ORIGINAL PROCEDURE [facility] THERAPEUTIC ACTIVITIES, DIRECT (ONE-ON-ONE) PATIENT CONTACT (USE OF DYNAMIC ACTIVITIES TO IMPROVE FUNCTIONAL PERFORMANCE), EACH 15 MINUTES [facility] POSTOPERATIVE FOLLOW-UP VISIT, NORMALLY INCLUDED IN THE SURGICAL PACKAGE, INDICATE THAT EVALUATION & MANAGEMENT SERVICE WAS PERFORMED DURING A POSTOPERATIVE PERIOD REASON RELATED ORIGINAL PROCEDURE [facility] THERAPEUTIC PROCEDURE, 1 OR MORE AREAS, EACH 15 MINUTES; GAIT TRAINING (INCLUDES STAIR CLIMBING) [facility] SELF-CARE/HOME MANAGMENT TRAIN (EG,ACT OF DAILY LIVING (ADL) &COMPENSAT TRAIN,MEAL PREPARATION,SAFETY PROCS,AND INSTRUCT IN USE OF ASST TECHNOLOGY DEV/ADPT EQUIP) DIR ONE-ON-ONE CONT,EA 15 MINUTES [facility] POSTOPERATIVE FOLLOW-UP VISIT, NORMALLY INCLUDED IN THE SURGICAL PACKAGE, INDICATE THAT EVALUATION & MANAGEMENT SERVICE WAS PERFORMED DURING A POSTOPERATIVE PERIOD REASON RELATED ORIGINAL PROCEDURE [facility] OCCUPATIONAL THERAPY EVALUATION [facility] THERAPEUTIC ACTIVITIES, DIRECT (ONE-ON-ONE) PATIENT CONTACT (USE OF DYNAMIC ACTIVITIES TO IMPROVE FUNCTIONAL PERFORMANCE), EACH 15 MINUTES [facility] POSTOPERATIVE FOLLOW-UP VISIT, NORMALLY INCLUDED IN THE SURGICAL PACKAGE, INDICATE THAT EVALUATION & MANAGEMENT SERVICE WAS PERFORMED DURING A POSTOPERATIVE PERIOD REASON RELATED ORIGINAL PROCEDURE [facility] ARTHROSCOPY, KNEE, SURGICAL; OSTEOCHONDRAL ALLOGRAFT (EG, MOSAICPLASTY) [facility] THERAPEUTIC PROCEDURE, 1 OR MORE AREAS, EACH 15 MINUTES; THERAPEUTIC EXERCISES TO DEVELOP STRENGTH AND ENDURANCE, RANGE OF MOTION AND FLEXIBILITY [facility] THERAPEUTIC PROCEDURE, 1 OR MORE AREAS, EACH 15 MINUTES; THERAPEUTIC EXERCISES TO DEVELOP STRENGTH AND ENDURANCE, RANGE OF MOTION AND FLEXIBILITY [facility] THERAPEUTIC PROCEDURE, 1 OR MORE AREAS, EACH 15 MINUTES; THERAPEUTIC EXERCISES TO DEVELOP STRENGTH AND ENDURANCE, RANGE OF MOTION AND FLEXIBILITY [facility] THERAPEUTIC PROCEDURE, 1 OR MORE AREAS, EACH 15 MINUTES; THERAPEUTIC EXERCISES TO DEVELOP STRENGTH AND ENDURANCE, RANGE OF MOTION AND FLEXIBILITY [facility] THERAPEUTIC PROCEDURE, 1 OR MORE AREAS, EACH 15 MINUTES; THERAPEUTIC EXERCISES TO DEVELOP STRENGTH AND ENDURANCE, RANGE OF MOTION AND FLEXIBILITY [facility] OPHTHALMOLOGICAL SERVICES: MEDICAL EXAMINATION AND EVALUATION, WITH INITIATION OR CONTINUATION OF DIAGNOSTIC AND TREATMENT PROGRAM; COMPREHENSIVE, ESTABLISHED PATIENT, 1 OR MORE VISITS [facility] THERAPEUTIC PROCEDURE, 1 OR MORE AREAS, EACH 15 MINUTES; THERAPEUTIC EXERCISES TO DEVELOP STRENGTH AND ENDURANCE, RANGE OF MOTION AND FLEXIBILITY [facility] THERAPEUTIC PROCEDURE, 1 OR MORE AREAS, EACH 15 MINUTES; THERAPEUTIC EXERCISES TO DEVELOP STRENGTH AND ENDURANCE, RANGE OF MOTION AND FLEXIBILITY [facility] THERAPEUTIC PROCEDURE, 1 OR MORE AREAS, EACH 15 MINUTES; THERAPEUTIC EXERCISES TO DEVELOP STRENGTH AND ENDURANCE, RANGE OF MOTION AND FLEXIBILITY [facility] THERAPEUTIC PROCEDURE, 1 OR MORE AREAS, EACH 15 MINUTES; THERAPEUTIC EXERCISES TO DEVELOP STRENGTH AND ENDURANCE, RANGE OF MOTION AND FLEXIBILITY [facility] THERAPEUTIC PROCEDURE, 1 OR MORE AREAS, EACH 15 MINUTES; THERAPEUTIC EXERCISES TO DEVELOP STRENGTH AND ENDURANCE, RANGE OF MOTION AND FLEXIBILITY [facility] THERAPEUTIC PROCEDURE, 1 OR MORE AREAS, EACH 15 MINUTES; THERAPEUTIC EXERCISES TO DEVELOP STRENGTH AND ENDURANCE, RANGE OF MOTION AND FLEXIBILITY DoD THERAPEUTIC PROCEDURE, 1 OR MORE AREAS, EACH 15 MINUTES; THERAPEUTIC EXERCISES TO DEVELOP STRENGTH AND ENDURANCE, RANGE OF MOTION AND FLEXIBILITY [facility] PRESCRIPTION OF OPTICAL AND PHYSICAL CHARACTERISTICS OF AND FITTING OF CONTACT LENS, WITH MEDICAL SUPERVISION OF ADAPTATION; CORNEAL LENS, BOTH EYES, EXCEPT FOR APHAKIA DoD THERAPEUTIC PROCEDURE, 1 OR MORE AREAS, EACH 15 MINUTES; THERAPEUTIC EXERCISES TO DEVELOP STRENGTH AND ENDURANCE, RANGE OF MOTION AND FLEXIBILITY DoD THERAPEUTIC PROCEDURE, 1 OR MORE AREAS, EACH 15 MINUTES; THERAPEUTIC EXERCISES TO DEVELOP STRENGTH AND ENDURANCE, RANGE OF MOTION AND FLEXIBILITY DoD THERAPEUTIC PROCEDURE, 1 OR MORE AREAS, EACH 15 MINUTES; THERAPEUTIC EXERCISES TO DEVELOP STRENGTH AND ENDURANCE, RANGE OF MOTION AND FLEXIBILITY DoD THERAPEUTIC PROCEDURE, 1 OR MORE AREAS, EACH 15 MINUTES; THERAPEUTIC EXERCISES TO DEVELOP STRENGTH AND ENDURANCE, RANGE OF MOTION AND FLEXIBILITY DoD THERAPEUTIC PROCEDURE, 1 OR MORE AREAS, EACH 15 MINUTES; THERAPEUTIC EXERCISES TO DEVELOP STRENGTH AND ENDURANCE, RANGE OF MOTION AND FLEXIBILITY DoD THERAPEUTIC PROCEDURE, 1 OR MORE AREAS, EACH 15 MINUTES; THERAPEUTIC EXERCISES TO DEVELOP STRENGTH AND ENDURANCE, RANGE OF MOTION AND FLEXIBILITY DoD THERAPEUTIC PROCEDURE, 1 OR MORE AREAS, EACH 15 MINUTES; THERAPEUTIC EXERCISES TO DEVELOP STRENGTH AND ENDURANCE, RANGE OF MOTION AND FLEXIBILITY DoD THERAPEUTIC PROCEDURE, 1 OR MORE AREAS, EACH 15 MINUTES; THERAPEUTIC EXERCISES TO DEVELOP STRENGTH AND ENDURANCE, RANGE OF MOTION AND FLEXIBILITY DoD THERAPEUTIC PROCEDURE, 1 OR MORE AREAS, EACH 15 MINUTES; THERAPEUTIC EXERCISES TO DEVELOP STRENGTH AND ENDURANCE, RANGE OF MOTION AND FLEXIBILITY DoD THERAPEUTIC PROCEDURE, 1 OR MORE AREAS, EACH 15 MINUTES; THERAPEUTIC EXERCISES TO DEVELOP STRENGTH AND ENDURANCE, RANGE OF MOTION AND FLEXIBILITY [facility] POSTOPERATIVE FOLLOW-UP VISIT, NORMALLY INCLUDED IN THE SURGICAL PACKAGE, INDICATE THAT EVALUATION & MANAGEMENT SERVICE WAS PERFORMED DURING A POSTOPERATIVE PERIOD REASON RELATED ORIGINAL PROCEDURE [facility] THERAPEUTIC PROCEDURE, 1 OR MORE AREAS, EACH 15 MINUTES; THERAPEUTIC EXERCISES TO DEVELOP STRENGTH AND ENDURANCE, RANGE OF MOTION AND FLEXIBILITY [facility] THERAPEUTIC PROCEDURE, 1 OR MORE AREAS, EACH 15 MINUTES; THERAPEUTIC EXERCISES TO DEVELOP STRENGTH AND ENDURANCE, RANGE OF MOTION AND FLEXIBILITY DoD THERAPEUTIC PROCEDURE, 1 OR MORE AREAS, EACH 15 MINUTES; THERAPEUTIC EXERCISES TO DEVELOP STRENGTH AND ENDURANCE, RANGE OF MOTION AND FLEXIBILITY 014 DoD APPLICATION OF A MODALITY TO 1 OR MORE AREAS; ELECTRICAL STIMULATION (UNATTENDED) 014 DoD APPLICATION OF A MODALITY TO 1 OR MORE AREAS; HOT OR COLD PACKS 014 DoD APPLICATION OF A MODALITY TO 1 OR MORE AREAS; HOT OR COLD PACKS 014 DoD APPLICATION OF A MODALITY TO 1 OR MORE AREAS; HOT OR COLD PACKS 014 DoD APPLICATION OF A MODALITY TO 1 OR MORE AREAS; HOT OR COLD PACKS 014 DoD APPLICATION OF A MODALITY TO 1 OR MORE AREAS; HOT OR COLD PACKS 014 DoD APPLICATION OF A MODALITY TO 1 OR MORE AREAS; HOT OR COLD PACKS 014 DoD APPLICATION OF A MODALITY TO 1 OR MORE AREAS; HOT OR COLD PACKS 014 DoD APPLICATION OF A MODALITY TO 1 OR MORE AREAS; HOT OR COLD PACKS 014 DoD APPLICATION OF A MODALITY TO 1 OR MORE AREAS; HOT OR COLD PACKS 014 DoD THERAPEUTIC PROCEDURE, 1 OR MORE AREAS, EACH 15 MINUTES; THERAPEUTIC EXERCISES TO DEVELOP STRENGTH AND ENDURANCE, RANGE OF MOTION AND FLEXIBILITY 014 DoD APPLICATION OF A MODALITY TO 1 OR MORE AREAS; HOT OR COLD PACKS 014 DoD APPLICATION OF A MODALITY TO 1 OR MORE AREAS; HOT OR COLD PACKS 014 DoD THERAPEUTIC PROCEDURE, 1 OR MORE AREAS, EACH 15 MINUTES; GAIT TRAINING (INCLUDES STAIR CLIMBING) 014 DoD THERAPEUTIC PROCEDURE, 1 OR MORE AREAS, EACH 15 MINUTES; GAIT TRAINING (INCLUDES STAIR CLIMBING) 014 DoD APPLICATION OF A MODALITY TO 1 OR MORE AREAS; HOT OR COLD PACKS 014 DoD APPLICATION OF A MODALITY TO 1 OR MORE AREAS; HOT OR COLD PACKS 014 DoD APPLICATION OF A MODALITY TO 1 OR MORE AREAS; HOT OR COLD PACKS 013 DoD APPLICATION OF A MODALITY TO 1 OR MORE AREAS; HOT OR COLD PACKS 013 DoD APPLICATION OF A MODALITY TO 1 OR MORE AREAS; HOT OR COLD PACKS 013 DoD APPLICATION OF A MODALITY TO 1 OR MORE AREAS; HOT OR COLD PACKS 013 DoD APPLICATION OF A MODALITY TO 1 OR MORE AREAS; HOT OR COLD PACKS 013 DoD APPLICATION OF A MODALITY TO 1 OR MORE AREAS; HOT OR COLD PACKS 013 DoD APPLICATION OF A MODALITY TO 1 OR MORE AREAS; ELECTRICAL STIMULATION (UNATTENDED) 013 DoD APPLICATION OF A MODALITY TO 1 OR MORE AREAS; HOT OR COLD PACKS 013 DoD APPLICATION OF A MODALITY TO 1 OR MORE AREAS; HOT OR COLD PACKS 013 DoD APPLICATION OF A MODALITY TO 1 OR MORE AREAS; HOT OR COLD PACKS 013 DoD APPLICATION OF A MODALITY TO 1 OR MORE AREAS; HOT OR COLD PACKS 013 DoD APPLICATION OF A MODALITY TO 1 OR MORE AREAS; HOT OR COLD PACKS 013 DoD PHYSICAL THERAPY EVALUATION 013 DoD APPLICATION OF A MODALITY TO 1 OR MORE AREAS; TRACTION, MECHANICAL 013 DoD APPLICATION OF A MODALITY TO 1 OR MORE AREAS; TRACTION, MECHANICAL 013 DoD APPLICATION OF A MODALITY TO 1 OR MORE AREAS; TRACTION, MECHANICAL 013 DoD APPLICATION OF A MODALITY TO 1 OR MORE AREAS; TRACTION, MECHANICAL 013 DoD APPLICATION OF A MODALITY TO 1 OR MORE AREAS; TRACTION, MECHANICAL 013 DoD APPLICATION OF A MODALITY TO 1 OR MORE AREAS; TRACTION, MECHANICAL 013 DoD APPLICATION OF A MODALITY TO 1 OR MORE AREAS; TRACTION, MECHANICAL 013 DoD APPLICATION OF A MODALITY TO 1 OR MORE AREAS; TRACTION, MECHANICAL 013 DoD PHYSICAL THERAPY EVALUATION 013 DoD DETERMINATION OF REFRACTIVE STATE DoD OPHTHALMOLOGICAL SERVICES: MEDICAL EXAMINATION AND EVALUATION, WITH INITIATION OR CONTINUATION OF DIAGNOSTIC AND TREATMENT PROGRAM; INTERMEDIATE, ESTABLISHED PATIENT DoD DETERMINATION OF REFRACTIVE STATE 012 DoD OPHTHALMOLOGICAL SERVICES: MEDICAL EXAMINATION AND EVALUATION, WITH INITIATION OR CONTINUATION OF DIAGNOSTIC AND TREATMENT PROGRAM; INTERMEDIATE, ESTABLISHED PATIENT 012 DoD OPHTHALMOLOGICAL SERVICES: MEDICAL EXAMINATION AND EVALUATION, WITH INITIATION OR CONTINUATION OF DIAGNOSTIC AND TREATMENT PROGRAM; INTERMEDIATE, ESTABLISHED PATIENT 011 [facility] PRESCRIPTION OF OPTICAL AND PHYSICAL CHARACTERISTICS OF AND FITTING OF CONTACT LENS, WITH MEDICAL SUPERVISION OF ADAPTATION; CORNEAL LENS, BOTH EYES, EXCEPT FOR APHAKIA 011 [facility] DETERMINATION OF REFRACTIVE STATE 011 DoD DETERMINATION OF REFRACTIVE STATE 011 DoD DETERMINATION OF REFRACTIVE STATE 011 DoD COMPRESSION BANDAGE, ROLL 011 DoD THERAPEUTIC PROCEDURE, 1 OR MORE AREAS, EACH 15 MINUTES; THERAPEUTIC EXERCISES TO DEVELOP STRENGTH AND ENDURANCE, RANGE OF MOTION AND FLEXIBILITY 011 DoD THERAPEUTIC PROCEDURE, 1 OR MORE AREAS, EACH 15 MINUTES; THERAPEUTIC EXERCISES TO DEVELOP STRENGTH AND ENDURANCE, RANGE OF MOTION AND FLEXIBILITY 010 DoD OSTEOPATHIC MANIPULATIVE TREATMENT (OMT); 1-2 BODY REGIONS INVOLVED 010 [facility] 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), LIMB OR TRUNK 010 DoD 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), LIMB OR TRUNK 010 DoD THERAPEUTIC PROCEDURE, 1 OR MORE AREAS, EACH 15 MINUTES; THERAPEUTIC EXERCISES TO DEVELOP STRENGTH AND ENDURANCE, RANGE OF MOTION AND FLEXIBILITY 009 DoD THERAPEUTIC PROCEDURE, 1 OR MORE AREAS, EACH 15 MINUTES; THERAPEUTIC EXERCISES TO DEVELOP STRENGTH AND ENDURANCE, RANGE OF MOTION AND FLEXIBILITY 009 DoD 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), LIMB OR TRUNK 009 DoD INJECTION OF SCLEROSANT; MULTIPLE INCOMPETENT VEINS (OTHER THAN TELANGIECTASIA), SAME LEG 008 [facility] UNLISTED SPECIAL SERVICE, PROCEDURE OR REPORT 008 [facility] DUPLEX SCAN OF EXTREMITY VEINS INCLUDING RESPONSES TO COMPRESSION AND OTHER MANEUVERS; UNILATERAL OR LIMITED STUDY 008 DoD SCREENING PAPANICOLAOU SMEAR; OBTAINING, PREPARING AND CONVEYANCE OF CERVICAL OR VAGINAL SMEAR TO LABORATORY 008 [facility] SCREENING PAPANICOLAOU SMEAR; OBTAINING, PREPARING AND CONVEYANCE OF CERVICAL OR VAGINAL SMEAR TO LABORATORY 006 DoD OTHER BILATERAL LIGATION AND DIVISION OF FALLOPIAN TUBES 006 DoD LOW CERVICAL SECTION 006 [facility] ANESTHESIA FOR DELIVERY FOLLOWING NEURAXIAL LABOR ANALGESIA/ANESTHESI A (LIST SEPARATELY ADDITION TO CODE FOR PRIMARY PROCEDURE PERFORMED) 006 [facility] HISTORY&PHYSICAL (OUTPATIENT/OFFICE) RELATED SURGICAL PROCEDURE (LIST SEPARATELY ADDITION CD, APPROPRIATE EVAL & MGT SERVICE) [facility] SUBSEQ CARE VISIT () [EXCLS:PATIENTS WHO ARE SEEN FOR A CONDITION UNREL TO / CARE (EG,AN UP RESPIR INFECT;PATIENTS SEEN FOR CONSULTATION ONLY,NOT FOR CONT CARE)] [facility] SUBSEQ CARE VISIT () [EXCLS:PATIENTS WHO ARE SEEN FOR A CONDITION UNREL TO / CARE (EG,AN UP RESPIR INFECT;PATIENTS SEEN FOR CONSULTATION ONLY,NOT FOR CONT CARE)] [facility] SUBSEQ CARE VISIT () [EXCLS:PATIENTS WHO ARE SEEN FOR A CONDITION UNREL TO / CARE (EG,AN UP RESPIR INFECT;PATIENTS SEEN FOR CONSULTATION ONLY,NOT FOR CONT CARE)] [facility] SUBSEQ CARE VISIT () [EXCLS:PATIENTS WHO ARE SEEN FOR A CONDITION UNREL TO / CARE (EG,AN UP RESPIR INFECT;PATIENTS SEEN FOR CONSULTATION ONLY,NOT FOR CONT CARE)] [facility] SUBSEQ CARE VISIT () [EXCLS:PATIENTS WHO ARE SEEN FOR A CONDITION UNREL TO / CARE (EG,AN UP RESPIR INFECT;PATIENTS SEEN FOR CONSULTATION ONLY,NOT FOR CONT CARE)] [facility] ULTRASOUND, UTERUS, REAL TIME WITH IMAGE DOCUMENTATION,TRANS VAGINAL [facility] SUBSEQ CARE VISIT () [EXCLS:PATIENTS WHO ARE SEEN FOR A CONDITION UNREL TO / CARE (EG,AN UP RESPIR INFECT;PATIENTS SEEN FOR CONSULTATION ONLY,NOT FOR CONT CARE)] [facility] ULTRASOUND, UTERUS, REAL TIME WITH IMAGE DOCUMENTATION,TRANS VAGINAL DoD MEDICAL NUTRITION THERAPY; GROUP (2 OR MORE INDIVIDUAL(S)), EACH 30 MINUTES DoD CERVICAL OR VAGINAL CANCER SCREENING; PELVIC AND CLINICAL BREAST EXAMINATION DoD 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), LIMB OR TRUNK DoD SCREENING PAPANICOLAOU SMEAR; OBTAINING, PREPARING AND CONVEYANCE OF CERVICAL OR VAGINAL SMEAR TO LABORATORY DoD NONINVASIVE EAR OR PULSE OXIMETRY FOR OXYGEN SATURATION; SINGLE DETERMINATION DoD ORTHOTIC(S) FITTING AND TRAINING, UPPER EXTREMITY(IES), LOWER EXTREMITY(IES), AND/OR TRUNK, EACH 15 MINUTES 002 [facility] ORTHOTIC(S) FITTING AND TRAINING, UPPER EXTREMITY(IES), LOWER EXTREMITY(IES), AND/OR TRUNK, EACH 15 MINUTES 002 [facility] DESTRUCTION (EG, LASER SURGERY, ELECTROSURGERY, CRYOSURGERY, CHEMOSURGERY, SURGICAL CURETTEMENT), PREMALIGNANT LESIONS (EG, ACTINIC KERATOSES); FIRST LESION 002 [facility] CERVICAL OR VAGINAL CANCER SCREENING; PELVIC AND CLINICAL BREAST EXAMINATION 001 [facility]i Orth[facility] Splinting Long Arm Orthopedic Splinting Long Arm 25353 011 NATALIA GUALLPA Compre ion bandage, roll 011 NATALIA GUALLPA Splint 011 NATALIA GUALLPA Posterior elbow splint applied to left elbow with 18in of 4 Orthoglass, secured with 3 bandage roll per MD orders @ 2220L. Pulse motor and sensory checked prior and post procedure. Pt able to move finger and states she has sensation in distal digits. Emi Metcalf isted Exercises For ROM Assisted [place]ercises [place] ROM 20248 011 NASEEM MARINO Physical Therapy Service Re-Evaluation Physical Therapy Service Re-Evaluation 17844 011 NASEEM MARINO isted Exercises For ROM Assisted [place]ises [place] ROM 19260 010 NASEEM MARINO Osteopathic Manip Treatment (OMT) 3-4 Body Regions Involved Osteopathic Manip Treatment (OMT) 3-4 Body Regions Involved 61995 010 NASEEM MARINO Physical Therapy Service Re-Evaluation Physical Therapy Service Re-Evaluation 82691 010 NASEEM MARINO Osteopathic Manip Treatment (OMT) 1-2 Body Regions Involved Osteopathic Manip Treatment (OMT) 1-2 Body Regions Involved 60274 010 NASEEM MARINO isted Exercises For ROM Assisted Exercises For ROM 12616 010 NASEEM MARINO Physical Therapy Service Evaluation Physical Therapy Service Evaluation 43259 010 NASEEM MARINO Sclerosing Telangiectasia Limb / Trunk Sclerosing Telangiectasia Limb / Trunk 29690 010 NATALIA BENNETT Sclerosing Multiple Veins By Injection - One Leg 010 NATALIA BENNETT Sclerosing Telangiectasia Limb / Trunk Sclerosing Telangiectasia Limb / Trunk 48447 010 NATALIA BENNETT Sclerosing Multiple Veins By Injection - One Leg 010 NATALIA BENNETT Physical Therapy: ___ Se ion Segments, 15 Minutes Each Physical Therapy: ___ Session Segments, 15 Minutes Each 12996 009 KAMLESH SMYTH A isted Exercises For ROM Assisted Exercises For ROM 80542 009 YOLANDA COLINDRES Physical Therapy Service Evaluation Physical Therapy Service Evaluation 01922 009 YOLANDA COLINDRES Sclerosing Multiple Veins By Injection - One Leg 009 NATALIA BENNETT Sclerosing Multiple Veins By Injection - One Leg 008 NATALIA BENNETT Unilateral Doppler Duplex Color-Flow Venous of Extremity Unilateral Doppler Duplex Color-Flow Venous of Extremity 93208 008 NATALIA BENNETT Screening papanicolaou smear; obtaining, preparing and conveyance of cervical or vaginal smear to laboratory 008 MATIAS ANGULO [facility] Obstetrical Services Care Only Obstetrical Services Care Only 85005 006 IGNACIA FRASER Screening papanicolaou smear; obtaining, preparing and conveyance of cervical or vaginal smear to laboratory 006 IGNACIA FRASER OB Services Antepartum Care Only Subsequent Single Visit OB Services Antepartum Care Only Subsequent Single Visit 0502F 006 ZENOBIA KNIGHT [facility] OB Services Antepartum Care Only Subsequent Single Visit OB Services Antepartum Care Only Subsequent Single Visit 0502F 006 RADHA MAHER [facility] Modalities Electrical Stimulation Unattended Modalities Electrical Stimulation Unattended 83123 013 MARIELA ELDER Physical Therapy: ___ Se ion Segments, 15 Minutes Each Physical Therapy: ___ Session Segments, 15 Minutes Each 22587 013 MARIELA ELDER Modalities Electrical Stimulation Unattended Modalities Electrical Stimulation Unattended 95544 013 MARIELA ELDER Physical Therapy: ___ Se ion Segments, 15 Minutes Each Physical Therapy: ___ Session Segments, 15 Minutes Each 40204 013 ELDERLISAH N [facility] Modalities Cryotherapy Cold Packs Modalities Cryotherapy Cold Packs 19826 013 ELDERLISAH N [facility] Modalities Cryotherapy Cold Packs Modalities Cryotherapy Cold Packs 63533 013 ELDERLISAH N [facility] Physical Therapy: ___ Se ion Segments, 15 Minutes Each Physical Therapy: ___ Session Segments, 15 Minutes Each 31737 013 ELDERLISA MetcalfH N [facility] Modalities Electrical Stimulation Unattended Modalities Electrical Stimulation Unattended 62860 013 ELDERLISAH N [facility] Modalities Cryotherapy Cold Packs Modalities Cryotherapy Cold Packs 72299 013 ELDERLISAH N [facility] Physical Therapy: ___ Se ion Segments, 15 Minutes Each Physical Therapy: ___ Session Segments, 15 Minutes Each 26418 013 LISA ELDERH N [facility] Modalities Electrical Stimulation Unattended Modalities Electrical Stimulation Unattended 12629 013 ELDERLISAH N [facility] Modalities Cryotherapy Cold Packs Modalities Cryotherapy Cold Packs 96155 013 ELDERLISAH N [facility] Modalities Electrical Stimulation Unattended Modalities Electrical Stimulation Unattended 77236 013 ELDERLISAH N [facility] Physical Therapy: ___ Se ion Segments, 15 Minutes Each Physical Therapy: ___ Session Segments, 15 Minutes Each 04601 013 ELDERLISAH N [facility] Modalities Cryotherapy Cold Packs Modalities Cryotherapy Cold Packs 68021 013 ELDERLISAH N [facility] Modalities Electrical Stimulation Unattended Modalities Electrical Stimulation Unattended 66944 ELDERLISAH N [facility] Physical Therapy: ___ Se ion Segments, 15 Minutes Each Physical Therapy: ___ Session Segments, 15 Minutes Each 97434 013 ELDERLISAH N [facility] Modalities Cryotherapy Cold Packs Modalities Cryotherapy Cold Packs 23323 013 ELDERLISA MetcalfH N [facility] Modalities Electrical Stimulation Unattended Modalities Electrical Stimulation Unattended 32708 MARIELA ELDER [facility] Physical Therapy: ___ Se ion Segments, 15 Minutes Each Physical Therapy: ___ Session Segments, 15 Minutes Each 91976 MARIELA ELDER Physical Therapy Service Evaluation Physical Therapy Service Evaluation 29216 MANDY MERRILL [facility] Postoperative Visit, Without Charge Postoperative Visit, Without Charge 84895 BEAU CULVER Physical Therapy Neuromuscular Re-education Physical Therapy Neuromuscular Re-education 75468 DELMAR NOAVK Modalities Cryotherapy Cold Packs Modalities Cryotherapy Cold Packs 11164 DELMAR NOVAK A isted Exercises For ROM Assisted Exercises For ROM 08358 DELMAR NOVAK Physical Therapy: ___ Se ion Segments, 15 Minutes Each Physical Therapy: ___ Session Segments, 15 Minutes Each 17060 DELMAR NOVAK Case Management, each 15 minutes CAMERON HERNANDEZ Coordinated care fee, maintenance rate CAMERON HERNANDEZ Patient Counseling Medical Management Individual Patient Patient Counseling Medical Management Individual Patient 71664 CAMERON HERNANDEZ Physical Therapy Neuromuscular Re-education Physical Therapy Neuromuscular Re-education 85853 013 JANES العراقي Modalities Cryotherapy Cold Packs Modalities Cryotherapy Cold Packs 55109 JANES العراقي A isted Exercises For ROM Assisted [place]ercises [place] ROM 39853 JANES العراقي Physical Therapy: ___ Se ion Segments, 15 Minutes Each Physical Therapy: ___ Session Segments, 15 Minutes Each 18683 013 JANES العراقي Physical Therapy Neuromuscular Re-education Physical Therapy Neuromuscular Re-education 23461 DELMAR NOVAK Modalities Cryotherapy Cold Packs Modalities Cryotherapy Cold Packs 16399 DELMAR NOVAK A isted Exercises For ROM Assisted Exercises For ROM 71020 013 DELMAR NOVAK Physical Therapy: ___ Se ion Segments, 15 Minutes Each Physical Therapy: ___ Session Segments, 15 Minutes Each 28358 DELMAR NOVAK Physical Therapy Neuromuscular Re-education Physical Therapy Neuromuscular Re-education 19789 013 JANES العراقي Modalities Cryotherapy Cold Packs Modalities Cryotherapy Cold Packs 90930 JANES العراقي A isted Exercises For ROM Assisted [place]ercises [place] ROM 64653 013 JANES العراقي Physical Therapy: ___ Se ion Segments, 15 Minutes Each Physical Therapy: ___ Session Segments, 15 Minutes Each 21651 013 JANES العراقي Physical Therapy Neuromuscular Re-education Physical Therapy Neuromuscular Re-education 35492 JANES العراقي Modalities Cryotherapy Cold Packs Modalities Cryotherapy Cold Packs 81083 JANES العراقي A isted Exercises For ROM Assisted Exercises [place] ROM 30176 JANES العراقي Physical Therapy: ___ Se ion Segments, 15 Minutes Each Physical Therapy: ___ Session Segments, 15 Minutes Each 42398 JANES العراقي Postoperative Visit, Without Charge Postoperative Visit, Without Charge 48160 BEAU CULVER PT A e ment Kinetic Training PT Assessment Kinetic Training 08162 SARAH SEYMOUR Physical Therapy: ___ Se ion Segments, 15 Minutes Each Physical Therapy: ___ Session Segments, 15 Minutes Each 69290 SARAH SEYMOUR Physical Therapy Service Evaluation Physical Therapy Service Evaluation 24445 SARAH SEYMOUR Physical Therapy: ___ Se ion Segments, 15 Minutes Each Physical Therapy: ___ Session Segments, 15 Minutes Each 62006 MARIELA JHA Physical Therapy Gait Training Physical Therapy Gait Training 00176 AQUILINO GALAN PT A e ment Kinetic Training PT Assessment Kinetic Training 33144 AQUILINO GALAN [facility] Patient Training And Self-Care Skills Patient Training And Self-Care Skills 97663 RO ALAN x 25 min DoD Phys Therapy Education Self Care Training - Per 15 Minutes Phys Therapy Education Self Care Training - Per 15 Minutes 50237 EARL GAO total time: 30 min. [facility] Occupational Therapy Evaluation Occupational Therapy Evaluation 43738 EARL GAO total time: 20 min. [facility] PT A e ment Kinetic Training PT Assessment Kinetic Training 11521 SRINIVASANMATHEW [facility] Physical Therapy Service Evaluation Physical Therapy Service Evaluation 92279 BROWNFIELDMATHEW [facility] Physical Therapy Gait Training Physical Therapy Gait Training 57465 BROWNFIELD [facility] Traction Pelvic Traction Pelvic 24043 013 MAIK BURNHAM 60# DoD Traction Pelvic Traction Pelvic 27197 013 MAIK [place]URNHAM 60# DoD Traction Pelvic Traction Pelvic 18708 013 MAIK BURNHAM 60# DoD A isted Exerc[place] 33320 MAIK [place] DoD Traction Pelvic Traction Pelvic 76871 013 MAIK BURNHAM A isted Exercises [place] 48226 MAIK [place]NH[place] DoD Traction Pelvic Traction Pelvic 84519 013 MAIK [place] 55# DoD Traction Pelvic Traction Pelvic 55085 013 ERNESTO [place] DoD Traction Pelvic Traction Pelvic 40993 013 MAIK [place] 45# DoD Traction Pelvic Traction Pelvic 78338 013 MAIK [place] 45# DoD Physical Therapy Service Evaluation Physical Therapy Service Evaluation 48471 MANDY MERRILL Determination Of Refractive State Determination Of Refractive State 83990 ARLYN MARRUFO Prescription And Fitting Bilateral Corneal Lenses (Not For Aphakia) Prescription And Fitting Bilateral Corneal Lenses (Not For Aphakia) 21280 ARLYN MARRUFO Ophthalmological Prior Patient Start Intermediate Level Care Ophthalmological Prior Patient Start Intermediate Level Care 97056 012 ARLYN MARRUFO Determination Of Refractive State Determination Of Refractive State 68452 012 ARLYN MARRUFO Ophthalmological Prior Patient Start Comprehensive Care Ophthalmological Prior Patient Start Comprehensive Care 85217 012 ARLYN MARRUFO Ophthalmological Prior Patient Start Intermediate Level Care Ophthalmological Prior Patient Start Intermediate Level Care 95648 012 ARLYN MARRUFO Ophthalmological Prior Patient Start Intermediate Level Care Ophthalmological Prior Patient Start Intermediate Level Care 14823 011 ARLYN MARRUFO Ophthalmological Prior Patient Start Intermediate Level Care Ophthalmological Prior Patient Start Intermediate Level Care 26530 011 ARLYN MARRUFO Determination Of Refractive State Determination Of Refractive State 61663 011 ARLYN MARRUFO Prescription And Fitting Bilateral Corneal Lenses (Not For Aphakia) Prescription And Fitting Bilateral Corneal Lenses (Not For Aphakia) 85982 011 ARLYN MARRUFO Determination Of Refractive State Determination Of Refractive State 25374 011 ARLYN MARRUFO Ophthalmological Prior Patient Start Intermediate Level Care Ophthalmological Prior Patient Start Intermediate Level Care 53008 011 ARLYN MARRUFO Determination Of Refractive State Determination Of Refractive State 99085 011 ARLYN MARRUFO Ophthalmological Prior Patient Start Intermediate Level Care Ophthalmological Prior Patient Start Intermediate Level Care 08185 011 ARLYN MARRUFO Determination Of Refractive State Determination Of Refractive State 42283 011 MATHEW SELLERS Prescription And Fitting Bilateral Corneal Lenses (Not For Aphakia) Prescription And Fitting Bilateral Corneal Lenses (Not For Aphakia) 80225 011 MATHEW SELLERS Ophthalmological New Patient Start Comprehensive Care Ophthalmological New Patient Start Comprehensive Care [id number] MATHEW SELLERS Modalities Cryotherapy Cold Packs Modalities Cryotherapy Cold Packs [id number] NATALIA GUALLPA Physical Therapy: ___ Se ion Segments, 15 Minutes Each Physical Therapy: ___ Session Segments, 15 Minutes Each [id number] 014 [place], ERNESTO C DoD Physical Therapy: ___ Se ion Segments, 15 Minutes Each Physical Therapy: ___ Session Segments, 15 Minutes Each [id number] 014 BIRMINHGAM, ERNESTO C DoD Physical Therapy: ___ Se ion Segments, 15 Minutes Each Physical Therapy: ___ Session Segments, 15 Minutes Each [id number] 014 [place], ERNESTO C DoD Physical Therapy: ___ Se ion Segments, 15 Minutes Each Physical Therapy: ___ Session Segments, 15 Minutes Each 13368 014 ELDER, MARIELA N Emi Physical Therapy: ___ Se ion Segments, 15 Minutes Each Physical Therapy: ___ Session Segments, 15 Minutes Each [id number] 014 ELDER, MARIELA N DoD Ophthalmological Prior Patient Start Comprehensive Care Ophthalmological Prior Patient Start Comprehensive [facility] [id number] ADEN DUVALL Physical Therapy: ___ Se ion Segments, 15 Minutes Each Physical Therapy: ___ Session Segments, 15 Minutes Each [id number] 014 [place], ERNESTO C DoD Physical Therapy: ___ Se ion Segments, 15 Minutes Each Physical Therapy: ___ Session Segments, 15 Minutes Each 93437 014 [place], ERNESTO C DoD Physical Therapy: ___ Se ion Segments, 15 Minutes Each Physical Therapy: ___ Session Segments, 15 Minutes Each 15486 014 ELDER, MARIELA N DoD Physical Therapy: ___ Se ion Segments, 15 Minutes Each Physical Therapy: ___ Session Segments, 15 Minutes Each 61195 014 [place], ERNESTO C DoD Physical Therapy: ___ Se ion Segments, 15 Minutes Each Physical Therapy: ___ Session Segments, 15 Minutes Each 23003 014 ELDER, MARIELA N Emi Physical Therapy: ___ Se ion Segments, 15 Minutes Each Physical Therapy: ___ Session Segments, 15 Minutes Each [id number] 014 ELDER, MARIELA N DoD Prescription And Fitting Bilateral Corneal Lenses (Not For Aphakia) Prescription And Fitting Bilateral Corneal Lenses (Not For Aphakia) [id number] ADEN DUVALL Determination Of Refractive State Determination Of Refractive State 18549 04/18/2 ADEN LEYVA Ophthalmological Prior Patient Start Comprehensive Care Ophthalmological Prior Patient Start Comprehensive Care 19525 ADEN DUVALL Physical Therapy: ___ Se ion Segments, 15 Minutes Each Physical Therapy: ___ Session Segments, 15 Minutes Each 81049 014 LISA ELDERH Giovanny [facility] Physical Therapy: ___ Se ion Segments, 15 Minutes Each Physical Therapy: ___ Session Segments, 15 Minutes Each 82465 014 ALEXSANDRA ELDERNETH Giovanny [facility] Physical Therapy: ___ Se ion Segments, 15 Minutes Each Physical Therapy: ___ Session Segments, 15 Minutes Each 38719 014 ALEXSANDRA ELDERNETH Giovanny [facility] Physical Therapy: ___ Se ion Segments, 15 Minutes Each Physical Therapy: ___ Session Segments, 15 Minutes Each 40752 014 ALEXSANDRA ELDERNETH Giovanny [facility] Physical Therapy: ___ Se ion Segments, 15 Minutes Each Physical Therapy: ___ Session Segments, 15 Minutes Each 97784 014 ALEXSANDRA ELDERNETH Giovanny [facility] Physical Therapy: ___ Se ion Segments, 15 Minutes Each Physical Therapy: ___ Session Segments, 15 Minutes Each [id number] 014 ALEXSANDRA ELDERNETH Giovanny [facility] Physical Therapy: ___ Se ion Segments, 15 Minutes Each Physical Therapy: ___ Session Segments, 15 Minutes Each 05935 014 ALEXSANDRA ELDERNETH N [facility] Physical Therapy: ___ Se ion Segments, 15 Minutes Each Physical Therapy: ___ Session Segments, 15 Minutes Each 65815 014 ERNESTO BIRMINGHAM [facility] Physical Therapy: ___ Se ion Segments, 15 Minutes Each Physical Therapy: ___ Session Segments, 15 Minutes Each [id number] 014 ALEXSANDRA ELDERNETH Giovanny [facility] Postoperative Visit, Without Charge Postoperative Visit, Without Charge [id number] LISBETH MCDANIELS [facility] Physical Therapy: ___ Se ion Segments, 15 Minutes Each Physical Therapy: ___ Session Segments, 15 Minutes Each 28890 014 ALEXSANDRA ELDERNETH Giovanny [facility] A isted Exercises For ROM Assisted Exercises For ROM [phone] ALEXSANDRA ELDERNETH Giovanny [facility] Physical Therapy: ___ Se ion Segments, 15 Minutes Each Physical Therapy: ___ Session Segments, 15 Minutes Each 63108 014 ELDERLISA MetcalfH Giovanny [facility] Modalities Electrical Stimulation Unattended Modalities Electrical Stimulation Unattended [id number] 014 ELDERLISA MetcalfH Giovanny [facility] Physical Therapy: ___ Se ion Segments, 15 Minutes Each Physical Therapy: ___ Session Segments, 15 Minutes Each 05065 014 LISA ELDERH Giovanny [facility] Modalities Cryotherapy Cold Packs Modalities Cryotherapy Cold Packs 26484 014 [place], ERNESTO C [facility] Modalities Electrical Stimulation Attended Each 15 Minutes Modalities Electrical Stimulation Attended Each 15 Minutes 15696 014 [place], ERNESTO C [facility] Physical Therapy: ___ Se ion Segments, 15 Minutes Each Physical Therapy: ___ Session Segments, 15 Minutes Each 66451 014 [place], ERNESTO C [facility] Modalities Cryotherapy Cold Packs Modalities Cryotherapy Cold Packs 78458 014 ELDERLISA MetcalfH Giovanny [facility] Physical Therapy: ___ Se ion Segments, 15 Minutes Each Physical Therapy: ___ Session Segments, 15 Minutes Each 22092 014 ELDER, MARIELA Giovanny [facility] Modalities Electrical Stimulation Attended Each 15 Minutes Modalities Electrical Stimulation Attended Each 15 Minutes 40597 014 ELDERLISA MetcalfH Giovanny [facility] Modalities Cryotherapy Cold Packs Modalities Cryotherapy Cold Packs 69178 014 [place], ERNESTO C [facility] Modalities Electrical Stimulation Attended Each 15 Minutes Modalities Electrical Stimulation Attended Each 15 Minutes 88934 014 [place], ERNESTO C [facility] Physical Therapy: ___ Se ion Segments, 15 Minutes Each Physical Therapy: ___ Session Segments, 15 Minutes Each 05536 014 [place], ERNESTO C [facility] Modalities Cryotherapy Cold Packs Modalities Cryotherapy Cold Packs 16984 014 ELDERLISA MetcalfH Giovanny [facility] Physical Therapy: ___ Se ion Segments, 15 Minutes Each Physical Therapy: ___ Session Segments, 15 Minutes Each [id number] 014 ELDERLISA MetcalfH Giovanny [facility] Modalities Electrical Stimulation Attended Each 15 Minutes Modalities Electrical Stimulation Attended Each 15 Minutes 49340 [facility]14 [facility] Cry[facility] Cold Packs Modalities Cryotherapy Cold Packs 51017 014 [facility] Modalities Electrical Stimulation Attended Each 15 Minutes Modalities Electrical Stimulation Attended Each 15 Minutes 08122 [facility] Physical Therapy: ___ Se ion Segments, 15 Minutes Each Physical Therapy: ___ Session Segments, 15 Minutes Each 25330 [facility] Modalities Cryotherapy Cold Packs Modalities Cryotherapy Cold Packs 88615 [facility] Modalities Electrical Stimulation Attended Each 15 Minutes Modalities Electrical Stimulation Attended Each 15 Minutes [facility] Physical Therapy: ___ Se ion Segments, 15 Minutes Each Physical Therapy: ___ Session Segments, 15 Minutes Each 93570 [facility] Modalities Cryotherapy Cold Packs Modalities Cryotherapy Cold Packs [phone] [place], ERNESTO C [facility] Modalities Electrical Stimulation Attended Each 15 Minutes Modalities Electrical Stimulation Attended Each 15 Minutes 47724 014 [place], ERNESTO C [facility] Physical Therapy: ___ Se ion Segments, 15 Minutes Each Physical Therapy: ___ Session Segments, 15 Minutes Each 70229 014 [place], ERNESTO C [facility] Modalities Cryotherapy Cold Packs Modalities Cryotherapy Cold Packs 50817 014 [place], ERNESTO C [facility] Modalities Electrical Stimulation Attended Each 15 Minutes Modalities Electrical Stimulation Attended Each 15 Minutes 66068 014 [place], ERNESTO C [facility] Physical Therapy: ___ Se ion Segments, 15 Minutes Each Physical Therapy: ___ Session Segments, 15 Minutes Each 99633 014 [place], ERNESTO C DoD Modalities Cryotherapy Cold Packs Modalities Cryotherapy Cold Packs 77134 014 [place], ERNESTO C DoD Modalities Electrical Stimulation Attended Each 15 Minutes Modalities Electrical Stimulation Attended Each 15 Minutes 014 [place], ERNESTO C [facility] Physical Therapy: ___ Se ion Segments, 15 Minutes Each Physical Therapy: ___ Session Segments, 15 Minutes Each 01413 014 [place], ERNESTO C DoD Modalities Cryotherapy Cold Packs Modalities Cryotherapy Cold Packs 09437 [facility] Physical Therapy Gait Training Physical Therapy Gait Training 46682 [facility] Modalities Electrical Stimulation Attended Each 15 Minutes Modalities Electrical Stimulation Attended Each 15 Minutes 58789 [facility] Physical Therapy: ___ Se ion Segments, 15 Minutes Each Physical Therapy: ___ Session Segments, 15 Minutes Each 33054 [facility] Physical Therapy Gait Training Physical Therapy Gait Training 25292 [facility] Modalities Cryotherapy Cold Packs Modalities Cryotherapy Cold Packs 72774 [facility] Modalities Electrical Stimulation Attended Each 15 Minutes Modalities Electrical Stimulation Attended Each 15 Minutes [facility] Physical Therapy: ___ Se ion Segments, 15 Minutes Each Physical Therapy: ___ Session Segments, 15 Minutes Each 81154 [facility] MARIELA Giovanny [facility] Modalities Cryotherapy Cold Packs Modalities Cryotherapy Cold Packs 34348 014 [place], ERNESTO C [facility] Modalities Electrical Stimulation Attended Each 15 Minutes Modalities Electrical Stimulation Attended Each 15 Minutes [place], ERNESTO C [facility] Physical Therapy: ___ Se ion Segments, 15 Minutes Each Physical Therapy: ___ Session Segments, 15 Minutes Each 83424 014 [place], ERNESTO C [facility] Modalities Cryotherapy Cold Packs Modalities Cryotherapy Cold Packs 24668 014 [place], ERNESTO C [facility] Modalities Electrical Stimulation Attended Each 15 Minutes Modalities Electrical Stimulation Attended Each 15 Minutes 014 [place], ERNESTO C [facility] Physical Therapy: ___ Se ion Segments, 15 Minutes Each Physical Therapy: ___ Session Segments, 15 Minutes Each 38302 014 [place], ERNESTO C DoD Modalities Cryotherapy Cold Packs Modalities Cryotherapy Cold Packs 90531 013 [place], ERNESTO C [facility] Modalities Electrical Stimulation Unattended Modalities Electrical Stimulation Unattended 94326 013 [place], ERNESTO C [facility] Physical Therapy: ___ Se ion Segments, 15 Minutes Each Physical Therapy: ___ Session Segments, 15 Minutes Each 86206 013 ERNESTO [place]MINGHAM [facility] Modalities Cryotherapy Cold Packs Modalities Cryotherapy Cold Packs 43783 013 ELDER, MARIELA N [facility] Modalities Electrical Stimulation Unattended Modalities Electrical Stimulation Unattended 16386 [facility], MARIELA N [facility] Physical Therapy: ___ Se ion Segments, 15 Minutes Each Physical Therapy: ___ Session Segments, 15 Minutes Each 24203 013 ELDER, MARIELA N [facility] Modalities Cryotherapy Cold Packs Modalities Cryotherapy Cold Packs 11693 013 ELDER, MARIELA N [facility] Modalities Electrical Stimulation Unattended Modalities Electrical Stimulation Unattended [phone] [facility], MARIELA N [facility] Physical Therapy: ___ Se ion Segments, 15 Minutes Each Physical Therapy: ___ Session Segments, 15 Minutes Each 83021 013 ELDER, MARIELA N [facility] Modalities Cryotherapy Cold Packs Modalities Cryotherapy Cold Packs 69462 013 [facility], [facility] Modalities Electrical Stimulation Unattended Modalities Electrical Stimulation Unattended 70832 013 [facility], MARIELA N [facility] Physical Therapy: ___ Se ion Segments, 15 Minutes Each Physical Therapy: ___ Session Segments, 15 Minutes Each 84041 013 ELDER, MARIELA N [facility] Modalities Cryotherapy Cold Packs Modalities Cryotherapy Cold Packs 71452 013 ELDER, MARIELA N [facility] Modalities Electrical Stimulation Unattended Modalities Electrical Stimulation Unattended [phone] [place] [address], MARIELA N [facility] Physical Therapy: ___ Se ion Segments, 15 Minutes Each Physical Therapy: ___ Session Segments, 15 Minutes Each 34302 013 ELDER, MARIELA N [facility] Modalities Cryotherapy Cold Packs Modalities Cryotherapy Cold Packs [phone] [facility], MARIELA N [facility] No data available for this section Ambulato ry Pharmacy Social History Combined list of available smoking, tobacco, and other social history from [facility] facilities. Social History Type Response Date Comment [facility] e This section is an empty soc ial history section. DoD Sexual Orientation Ambula tory Pharmacy Gender identity Ambulator y Pharmacy Female Ambulatory Pha rmacy Assessment and Plan Combined list of future care activities from [facility] and [facility] facilities (e.g., assessment and plan notes, appointments, orders, and referrals). Additional future care activities may be listed in the Plan of Care section. Result Assessment and Plan Date Source Assessment and Plan No data available for this section 03/15/2024 Ambulatory Pharmacy Functional Status Combined list of recent functional and cognitive assessments recorded at [facility] ([facility] Functional [place] Measurement (FIM) Scale: 1 = Total Assistance (Subject = 0% +), 2 = Maximal Assistance (Subject = 25% +), 3 = Moderate Assistance (Subject = 50% +), 4 = Minimal Assistance (Subject = 75% +), 5 = Supervision, 6 = Modified [place] (Device), 7 = Complete [place] (Timely, Safely). Assessment Date/Time Source Assessment Type Assessment Skill Assessment Score Assessment Details No data available for this section
--- OUTSIDE RECORDS SUMMARY | 2024-03-15 05:35 | XMS_ITS | Data Portability ---
Author Organization [place] - [facility], Main Office Address [address] [place] [address] Assessment Encounter Date Assessment Date Assessment LastModified by Organization Details LastModified Time 02/03/2023 02/03/2023 This note is dictated and transcribed by [employer]. St[employer] Cleaner variances may occur. Despite proofreading, typographical errors may occur. Occasional wrong-word or 'vkgrd-p-ywhh' substitutions may have occurred due to the inherent limitations of voice recording. Read the chart carefully and recognize, using context, where substitutions have occurred. Not available 02/10/2023 11:16:39 06/06/2023 06/06/2023 This note is dictated and transcribed by [employer]. Stitch Cleaner variances may occur. Despite proofreading, typographical errors may occur. Occasional wrong-word or 'rmybn-v-kwsb' substitutions may have occurred due to the inherent limitations of voice recording. Read the chart carefully and recognize, using context, where substitutions have occurred. Not available 06/22/2023 09:07:07 07/11/2023 07/11/2023 This note is dictated and transcribed by [employer]. Stitch Cleaner variances may occur. Despite proofreading, typographical errors may occur. Occasional wrong-word or 'hvsjh-j-suix' substitutions may have occurred due to the inherent limitations of voice recording. Read the chart carefully and recognize, using context, where substitutions have occurred. Not available 07/11/2023 16:56:10 Plan of Treatment Reminders Order Date Submit Date Provider Last Modified By Organization Details Last Modified Time Details Appointments None recorde d. Lab None recorde d. Referral None recorde d. Procedures None recorde d. Surgeries None recorde d. Imaging US, ankle 023 02/04/20 23 [facility] ([facility] Scheduling), [address] [place], [address], 14:31:13 Medication Orders None recorde d. Patient TargetsNo targets recorded. Patient Instructions Encounter Date Encounter Id Patient Instructions Last Modified By Organization Details Last Modified Time 02/03/2023 [id number] learning about rice (rest, ice, compression, and elevation) Not available 02/03/2023 15:44:49 Reason for Referral None Reported. Results Created Date Observation Date Name Description Value Unit Range Abnormal Flag Note LastModifiedBy Organization Detail LastModifiedTime 01/19/2001/18/2023 XR, ankle , 3 or more view No observ ation record ed. [facility] [address] [place], [address], 03/03/2023 10:47:30 03/07/19 24 03/04/2023 US, ankle [facility] [address] [place] [address] [phone] Patien t Name: GUILLERMO GONZALEZ Access ion #: [id number] Sex: F : 1965 9 Locati on: RAD Attend ing Physic jeanette: PRIETO VERMA Orderi Physic jeanette: PRIETO VERMA Exam Date: 024 8:23 AM Exam Name: US ANKLE LT LIMITE D Admitt ing Diagno sis(es ): RADIOL OGY REPORT - FINAL EXAM: US ANKLE LT LIMITE D HISTOR Y: left ankle sprain 57-yea r-old female with left ankle pain since injury 7 months ago. COMPAR NAN: Left ankle radiog raphs dated 2022. TECHNI QUE: Ultras ound evalua tion of the left ankle was perfor med. FINDIN GS: Tendon s: The tibial is anteri or, extens or digito rum longus , and extens or halluc is longus tendon s are intact . There is marked thicke ame and hetero geneou s echoge nicity of the perone us longus tendon , with multip le small intras ubstan ce partia l-thic kness tears presen t. There is mild thicke ame of the perone us brevis tendon . There is mild low echoge nicity of the Achill es Page 1 of 2 [facility] Patien t Name: GUILLERMO GONZALEZ Access ion #: [id number] Sex: F : 1965 9 Exam Date: 8:23 AM Exam Name: US ANKLE LT LIMITE D Admitt ing Diagno sis(es ): tendon insert ion, with presen ce of a small Achill es insert ion enthes ophyte . The Achill es tendon demons trates normal morpho logy and echoge nicity otherw ise. Ligame nts: The anteri or talofi bular ligame nt is mildly hetero geneou s. The anteri or tibiof ibular ligame nt and calcan eofibu lar ligame nt ligame nt are intact . Ankle effusi on extend s anteri eder and latera lly, deep to the extens or digito rum longus tendon and perone al tendon s. IMPRES COOPER: 1. Perone us longus tendin osis and multip le partia l-thic kness intras ubstan ce tears, and mild perone us brevis tendin osis. 2. Mild Achill es insert ion enthes opathy . 3. Low-gr maribell chroni c partia l tear of the anteri or talofi bular ligame nt. 4. Modera te ankle effusi on. Create d and electr onical ly signed by: Michael hilton MD Signed Date: 1:28 PM (CT) Dictat ed by: Michael hilton MD DD: 1:28 PM (CT) DT: 1:28 PM (CT) Page 2 of [address] (Imaging) [address] [place], [address], 03/07/2023 14:45:13 03/07/19 24 03/04/2023 US, ankle No observ ation record ed. [email or web address] [facility] ([facility] Scheduling) [address] [place], [address], 03/23/2023 11:17:56 Result Notes None recorded. Problems Name Problem SNOMED Code Status Onset Date Resolution Date Notes Provider Name and Address Organization Details Recorded Time Strain of muscle of right shoulder 8797956618605 9105 Active Not Available [facility] 4 17:21:54 Mass of left breast 2770664166579 9103 Active Not Available [facility] 4 17:21:54 Disorder of knee 291570714 Active Not Available [facility] 4 17:21:54 Mammograph y abnormal 942048199 Active Not Available [facility] 4 17:21:54 Acromiocla vicular joint pain 256120908 Active Not Available [facility] 4 17:21:54 Ganglion of wrist 746493898 Active Not Available [facility] 4 17:21:55 Urinary symptoms 145546961 Active Not Available [facility] 4 17:21:55 Low back pain 726261223 Active Not Available [facility] 4 17:21:55 Hyperthyro idism 70757853 Active Not Available [facility] 4 17:21:55 Sinusitis 77788906 Active Not Available [facility] 4 17:21:55 Hypertensi ve disorder 69260909 Active 2021 Not Available [facility] 4 17:21:55 Allergic rhinitis 20275640 Active Not Available [facility] 4 17:21:55 Otitis media 12715517 Active Not Available [facility] 4 17:21:55 Urinary tract infectious disease 30377362 Active Not Available [facility] 4 17:21:55 Sesamoidit is 19588954 Active 2017 Not Available [facility] 4 17:21:55 Neck pain 42226110 Active Not Available [facility] 4 17:21:55 Fatigue 67981484 Active Not Available [facility] 4 17:21:55 Breast lump 27203181 Active Not Available [facility] 4 17:21:55 Acute sinusitis 64131256 Active 2022 Not Available [facility] 4 17:21:54 Cough 01714625 Active 2022 Not Available [facility] 4 17:21:55 Essential hypertensi on 51269520 Active 2022 AFTER COVID Not Available [facility] 4 17:21:55 Injury of left ankle 9817118705267 9104 Active 2022 Not Available [facility] 4 17:21:54 Pain of toe of right foot 4598091637024 01 Active 2022 Not Available [facility] 4 17:21:55 Headache 75318461 Active 2022 AFTER COVID Not Available [facility] 4 17:21:55 Migraine 69905997 Active 2022 AFTER COVID Not Available [facility] 4 17:21:55 Sprain of left ankle 7638890054985 9105 Active 2022 Not Available [facility] 4 17:21:54 Strain of peroneal tendon 416251231 Active 2023 Not Available [facility] 4 17:21:55 COVID-19 695236888 Active 2023 Not Available [facility] 4 17:21:55 SARS-CoV-2 Active 2023 Not Available [facility] 4 17:21:55 Strain of peroneal tendon 135962151 Active 2023 Prieto Alvarado DPM [address], [address], [place], [address] , [facility] 4 16:18:58 Problem Notes None recorded. Procedures Surgical History Date Name Laterality Status Provider Name and Address Organization Details Recorded Time 4 Joint Injection-Podi atry 6217 completed Prieto Alvarado DPM [address] [facility], [address], [place], [address], [place] [facility] [facility] 07/11/2023 16:55:55 6 section completed Lela Persaud [facility] 02/03/2023 15:16:59 9 section completed Lela Persaud [facility] [facility] 02/03/2023 15:17:05 procedure on elbow completed Marietta Reid MA [facility] 01/18/2023 10:06:00 Knee Surgery completed Lela Persaud [facility] 02/03/2023 15:16:43 Imaging Results Imaging Date Name Status LastModified by Organiz ation Details LastModified Time 01/18/2023 XR, ankle, 3 or more view completed [email or web address] [facility] [address] [place], [address], 03/03/2023 10:47:30 03/04/2023 US, ankle completed [email or web address] [facility] (Imaging) [address] [place], [address], 03/07/2023 14:45:13 03/04/2023 US, ankle completed [email or web address] [facility] ([facility] Sched[facility]) [address] [place], [address], 03/23/2023 11:17:56 Procedure Notes None recorded. Medical Equipment None Reported. Allergies No known drug allergies Medications Name Sig Start Date Stop Date Status Note LastModified by Organization Details LastModified Time losartan 50 mg tablet TAKE 1 TABLET BY MOUTH EVERY DAY 01/18 completed Not Available Not Available Not Available cyclobenzap rine 10 mg tablet Take 1 tablet every day by oral route at bedtime for 30 days. active Not Available Not Available No t Available clonidine HCl 0.1 mg tablet TAKE 1 TABLET BY MOUTH EVERY 8 HOURS NEEDED SYTOLIC BLOOD PRESSURE OVER 180 OR DIASTOLIC OVER 90 02/03 completed Not Available Not Available Not Available lisinopril 20 mg-hydrochl orothiazide 12.5 mg tablet TAKE 1 TABLET BY MOUTH EVERY DAY 01/29 completed Not Available Not Available Not Available azithromyci n 250 mg tablet TAKE 2 TABLETS BY MOUTH FOR 1 DAY THEN TAKE 1 TABLET BY MOUTH DAILY FOR 4 DAYS DIRECTED 01/18 completed Not Available Not Available Not Available ibuprofen 800 mg tablet TK 1 T PO TID PRN active Not Available Not Available No t Available hydrocodone 5 mg-acetamin ophen 325 mg tablet TAKE 1 TABLET BY MOUTH EVERY 6 HOURS NEEDED FOR PAIN 12/03 completed Not Available Not Available Not Available lisinopril 20 mg tablet TAKE 1 TABLET BY MOUTH EVERY DAY active Not Available Not Available No t Available prednisone 20 mg tablet TAKE 2 TABLETS BY MOUTH EVERY DAY WITH FOOD FOR 5 DAYS. DO NOT TAKE WITH ASPIRIN OR NSAIDS SUCH ALEVE OR IBUPROFEN ETC 02/03 completed Not Available Not Available Not Available dexamethaso ne 6 mg tablet Take 1 tablet every day by oral route in the morning for 7 days. 06/05 completed Not Available Not Available Not Available doxycycline hyclate 50 mg capsule TK 1 C PO BID active Not Available Not Available No t Available amlodipine 5 mg tablet TAKE 1 TABLET BY MOUTH EVERY DAY active Not Available Not Available No t Available ciprofloxac in 500 mg tablet TAKE 1 TABLET BY MOUTH EVERY 12 HOURS 02/03 completed Not Available Not Available Not Available meloxicam 7.5 mg tablet TK 1 T PO QD 12/11 completed Not Available Not Available Not Available amoxicillin 875 mg tablet TAKE 1 TABLET BY MOUTH EVERY 12 HOURS FOR 10 DAYS 06/05 completed Not Available Not Available Not Available Kenalog 10 mg/mL suspension for injection In office injection administe red by the provider 12/03 completed [facility]: [phone]- [phone] Not Available Not Available Not Available meclizine 25 mg tablet TAKE 1 TABLET BY MOUTH THREE TIMES DAILY NEEDED 02/03 completed Not Available Not Available Not Available benzonatate 100 mg capsule TAKE 1 CAPSULE BY MOUTH EVERY 8 HOURS NEEDED 02/03 completed Not Available Not Available Not Available rizatriptan 10 mg disintegrat ing tablet 02/03 completed Not Available Not Available Not Available cephalexin 500 mg capsule TAKE 1 CAPSULE BY MOUTH TWICE DAILY FOR 7 DAYS 01/18 completed Not Available Not Available Not Available oseltamivir 75 mg capsule TAKE 1 CAPSULE BY MOUTH EVERY 12 HOURS FOR 5 DAYS 02/01 completed Not Available Not Available Not Available Cheratussin AC 10 mg-100 mg/5 mL oral liquid take 1-2 tsp every 4-6hrs prn cough active Not Available Not Available No t Available levofloxaci n 500 mg tablet TAKE 1 TABLET BY MOUTH EVERY 24 HOURS 02/03 completed Not Available Not Available Not Available methylpredn isolone 4 mg tablets in a dose pack FPD active Not Available Not Available Not Available ondansetron 4 mg disintegrat ing tablet 12/11 completed Not Available Not Available Not Available amoxicillin 875 mg-potassiu m clavulanate 125 mg tablet TAKE ONE TABLET BY MOUTH EVERY 12 HOURS FOR 10 DAYS active Not Available Not Available No t Available Calcium-500 500 mg (as calcium carbonate 1,250 mg) tablet Take 1 tablet every day by oral route. active Not Available Not Available No t Available Calcium 500 + D 500 mg-5 mcg (200 unit) tablet TAKE 1 TABLET BY MOUTH EVERY DAY 02/03 completed Not Available Not Available Not Available metaxalone 800 mg tablet TAKE 1 TABLET BY MOUTH 3 TIMES A DAY active Not Available Not Available No t Available topiramate 50 mg tablet 02/03 completed Not Available Not Available Not Available magnesium 02/03 completed Not Available Not Available Not Available Aleve 12/11 completed Not Available Not Available Not Available Calcium 500 2013 active Not Available Not Available Not Avai lable lidocaine (PF) 10 mg/mL (1 %) injection solution In office injection administe red by the provider 12/03 completed [facility]: 0409- [phone]- [phone] Not Available Not Available Not Available Suzanne Allergy 180 mg tablet Take 1 tablet every day by oral route. 12/11 completed Not Available Not Available Not Available Suzanne Allergy 2013 active Not Available Not Available Not Avai lable ID NOW COVID-19 Test Kit TEST DIRECTED TODAY 09/25 completed Not Available Not Available Not Available Paxlovid 300 mg (150 mg x 2)-100 mg tablets in a dose pack ta daily for 5 days ke one each twice 06/05 completed Not Available Not Available Not Available Vitals Date Recorded Body height Body mass index (BMI) Body weight Provider Name and Address Organization Details Last Updated DateTime 02/03/2023 160.02 cm 23.9 kg/m2 38050.97 g Lela Hung [facility] 02/03/2023 15:13:28 Date Recorded Heart rate Respiratory rate Oxygen saturation Oxygen saturation in Arterial blood by Pulse oximetry Systolic blood pressure Diastolic blood pressure Provider Name and Address Organization Details Last Updated DateTime 3 83 /min 14 /min 99 % 99 % 147 mm[Hg] 87 mm[Hg] Julissa Randolph [facility] [employer] [facility] 3 15:18:29 Date Recorded Body height Body mass index (BMI) Body weight Heart rate Respiratory rate Oxygen saturation Oxygen saturation in Arterial blood by Pulse oximetry Systolic blood pressure Diastolic blood pressure Provider Name and Address Organization Details Last Updated DateTime 4 160.02 cm 23.9 kg/m2 11907.9 7 g 93 /min 14 /min 99 % 99 % 113 mm[Hg] 69 mm[Hg] Julissa Randolph [facility] [employer] 4 09:21:42 Date Recorded Body height Body mass index (BMI) Body weight Heart rate Respiratory rate Oxygen saturation Oxygen saturation in Arterial blood by Pulse oximetry Systolic blood pressure Diastolic blood pressure Provider Name and Address Organization Details Last Updated DateTime 4 160.02 cm 23.9 kg/m2 61859.9 7 g 81 /min 14 /min 99 % 99 % 123 mm[Hg] 80 mm[Hg] Julissa Randolph [facility] 4 17:07:09 Date Recorded Body height Body mass index (BMI) Body weight Heart rate Respiratory rate Oxygen saturation Oxygen saturation in Arterial blood by Pulse oximetry Systolic blood pressure Diastolic blood pressure Provider Name and Address Organization Details Last Updated DateTime 4 160.02 cm 23.9 kg/m2 64487.9 7 g 77 /min 14 /min 99 % 99 % 116 mm[Hg] 76 mm[Hg] Julissa Randolph [facility] [employer] [facility] 4 16:09:12 Date Recorded Body height Body mass index (BMI) Body weight Oxygen saturation Oxygen saturation in Arterial blood by Pulse oximetry Body temperature Respiratory rate Heart rate Systolic blood pressure Diastolic blood pressure Provider Name and Address Organization Details Last Updated DateTime 4 160.02 cm 23.9 kg/m2 71822.9 7 g 99 % 99 % 97.8 [degF] 14 /min 76 /min 116 mm[Hg] 76 mm[Hg] Pinky Sandhu [facility] 15:40:51 Social History Question Answer Notes LastModified by Organizat ion Details LastModified Time Tobacco Smoking Status Never Smoker Lela Persaud corrie, [facility] 02/03/2023 15:16:24 What Is Your Level Of Alcohol Consumption? Occasional [email or web address] Information not available 02/03/2023 What Was The Date Of Your Most Recent Tobacco Screening? 10/28/2020 [id number] Information not available 04/21/2022 Sex: Unknown Functional Status None recorded. Mental Status None recorded. Family History Relationship Description Onset Age of this Age Resolved Age Notes LastModified by Organization Details LastModified Time Mother Hypertensive disorder [email or web address] Not available 2022 15:16:05 Sister Hypertensive disorder [email or web address] Not available 2022 15:16:05 Unspecified Relation Diabetes mellitus [email or web address] Not available 2022 15:16:14 Medical History Condition Response HEADACHES/MIGRAINES Y HYPERTENSION Y Gynecological HistoryNo gynecological history recorded. Obstetrics History GPAL:G 0 P 0 0 0 0 Past Encounters Encounter ID Performer Location Encounter Start Date Encounter Closed Date Diagnosis/Indication Diagnosis SNOMED-CT Code Diagnosis ICD10 Code Diagnosis Note [id number] [facility] [place] [address] [place] [address] 06/17/2020 00:00:00 06/17/2020 12:34:13 [id number] [facility] [address] [address] 07/09/2020 00:00:00 07/09/2020 17:07:50 [id number] [facility] [place] [address] [place] [address] 08/12/2020 00:00:00 08/12/2020 12:42:13 [id number] [facility] [place] [address] [place] [address] 08/19/2020 00:00:00 08/19/2020 17:03:36 [id number] [facility] [place] [address] [place] [address] 09/16/2020 00:00:00 09/16/2020 17:42:20 [id number] [facility] [place] [address] [place] [address] 10/28/2020 00:00:00 10/28/2020 10:18:55 [id number] [facility] [place] [address] [place] [address] 12/03/2020 00:00:00 12/03/2020 18:13:45 [id number] [facility] [place] [address] [place] [address] 01/27/2021 00:00:00 01/27/2021 11:16:30 [id number] [facility] [place] [address] [place] [address] 09/25/2021 00:00:00 09/26/2021 13:37:09 [id number] [facility] [place] [address] [place] [address] 10/09/2021 00:00:00 10/09/2021 15:21:01 [id number] [facility] [place] [address] [place] [address] 11/06/2021 00:00:00 11/06/2021 17:37:28 [id number] [facility] [place] [address] [place] [address] 01/04/2022 00:00:00 01/04/2022 13:30:11 [id number] [facility] [place] [address] [place] [address] 01/29/2022 00:00:00 01/29/2022 17:34:53 [id number] [facility] [place] [address] [place] [address] [place] [address] 03/15/2022 00:00:00 03/16/2022 08:33:11 [id number] [facility] [place] [address] [place] [address] [place] [address] 03/18/2022 00:00:00 03/19/2022 08:33:31 [id number] Meryl Cruz MD [facility] [place] [address] [place] [address] [place] [address] 05/31/2022 14:03:28 05/31/2022 14:39:19 Acute sinusitis 16405734 J01.90 Do steam of sinuses. Will start levaquin s/e discussed with pt. Cough 94048898 R05.9 [id number] TYRONE Franco [facility] [place] [address] [place] [address] [place] [address] 01/18/2023 09:57:03 01/18/2023 10:27:56 Pain of toe of right foot 1124699485 81212 M79.674 Injury of left ankle 203 6762692 2559453 S99.912A 4 months [id number] Prieto Alvarado DPM [facility] [place] [address] [place] [address] 02/03/2023 15:09:02 02/17/2023 14:57:53 Sprain of left ankle 3013116608 7686471 S93.402A no strenuous activities rice therapyici ng instructio ns reviewedfo llow-up testing [id number] Prieto Alvarado DPM [facility] [place] [address] [place] [address] 03/07/2023 09:14:40 03/08/2023 13:03:28 Sprain of left ankle 9253698900 0752004 S93.402A no strenuous activities ultrasound reviewed- partial tear ATFL, chronicrec ommend lace-up ankle bracerice therapyici instructio fede reviewedfo llow-up 1 week possible physical therapy if not improved Strain of peroneal tendon 051502348 S86.312D ultrasound reviewed- tendinosis peroneal tendonsrec ommend lace-up ankle bracesuppo rtive shoe gear dailyfollo w-up 1 month possible physical therapy [id number] Prieto Alvarado DPM [facility] [place] [address] [place] [address] 04/04/2023 17:00:23 04/11/2023 10:49:41 Sprain of left ankle 9871879822 9269137 S93.402A no strenuous activities ultrasound reviewed- partial tear ATFL, chronicrec ommend lace-up ankle bracerice therapyici instructio fede reviewedfo llow-up after- physical therapy, ordered today [id number] Prieto Alvarado DPM [facility] [place] [address] [place] [address] 06/06/2023 15:58:04 06/22/2023 10:05:33 Sprain of left ankle 1290567066 3036846 S93.402A no strenuous activities ultrasound reviewed- partial tear ATFL, chronicrec ommend lace-up ankle bracerice therapyici instructio fede reviewedFo llow-up 1 month finish physical therapy Strain of peroneal tendon 587524391 S86.312D ultrasound reviewed- tendinosis peroneal tendonsrec ommend lace-up ankle bracesuppo rtive shoe gear dailyfollo w-up 1 month [id number] Prieto Alvarado DPM [facility] [place] [address] [place] [address] 07/11/2023 15:29:05 07/14/2023 12:11:10 Sprain of left ankle 4890092390 8414493 S93.402A no strenuous activities 2 weeksultra sound reviewed- partial tear ATFL, chronicfin ished physical therapy, continue at-homecon tinue lace-up ankle braceand supportive shoe gearfollow -up as needed Strain of peroneal tendon 542895954 S86.312D resolved Health Concerns Section Related Observation LastModified by Organization Detai ls LastModified Time None Recorded Concern Status LastModified by Organization Details LastModified Time None Recorded Advance Directives Directive None Recorded Payers Encounter Date Sequence Insurance Name Policy Number Policy [employer] Covered Member ID [employer] Member ID Guarantor Name 02/03/2023 1 [place] - DOS PRIOR TO 2024 - [employer] () Angelic Alonzo [id number] Guillermo Torres Selfridge 03/07/2023 1 [place] - DOS PRIOR TO 2024 - [employer] () Angelic Alonzo [id number] Guillermo Torres Selfridge 04/04/2023 1 [place] - DOS PRIOR TO 2024 - [employer] () Angelic Alonzo [id number] Guillermo Manriqueas 06/06/2023 1 [place] - DOS PRIOR TO 2024 - [employer] () Angelic Alonzo [id number] Guillermo Torres Alonzo 07/11/2023 1 [place] - DOS PRIOR TO 2024 - [employer] () Angelic Alonzo [id number] Guillermo Torres Selfridge Notes Date Note Type Note Provider Name and Address Organization Details Recorded Time 02/03/2023 text/html . Patient is a 49-year-old female who presents the office with complaints of left ankle pain. Patient states that she injured her ankle approximately 4 months ago when playing pickle ball. Patient states she has had pain along her peroneal tendon and lateral ankle. Patient denies any instability but states when she is walking she has tenderness. She has pinpoint tenderness over the ATFL and peroneal tendons. Patient has some mild swelling. Patient denies any other complaints. Prieto Alvarado, MIKO [address] [facility], [facility] [address], [place], [address], [facility] 02/10/2023 11:18:15 03/07/2023 text/html Patient is a 57-year-old female who returns the office for follow-up on sprain of the left ankle. 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 Patient states that she has seen some improvement. Patient denies any significant issues with weight-bearing. Patient was recommended to obtain a lace-up ankle brace and perform at home [id number] exercises which was reviewed and discussed today. Patient will follow-up in 3 weeks and if continues to be problematic we will send to formal physical therapy. Prieto Alvarado DPM [address] [employer], [address], [place], [address], [employer] 03/08/2023 09:39:19 04/04/2023 text/html . Patient is a 57-year-old female who returns the office for follow-up on left ankle sprain. Patient has been doing some at-home therapy and has improved slightly. Patient states that she has ray to return to physical activity. I did discuss the need for good finishing therapy and sending her to physical therapy due to her pain not completely being resolved. Patient denies any other complaints. Prieto Alvarado DPM [address], [address], [place], [address], [employer] 04/11/2023 10:41:36 06/06/2023 text/html . Patient is a 58-year-old female who returns the office for follow-up on left ankle sprain of tendinitis. Patient has been undergoing physical therapy is doing a lot better. Patient states she is almost back to 90%. Patient denies any other complaints. Prieto Alvarado DPM [address], [address], [place], [address], [employer] 06/22/2023 09:07:33 07/11/2023 text/html . Patient is 58-year-old female who returns the office for follow-up on left ankle sprain and peroneal tendinitis. Patient states her peroneal tendinitis has resolved. Patient still has pain at the ATFL which has significantly improved. Patient still has some mild tenderness. I did discuss option for a steroid injection which the patient would like to have performed today. Patient denies any other complaints. Prieto Alvarado DPM [address] [address], [place], [address], [place] [facility] 07/13/2023 14:05:18 OBGyn Episode No OBEpisode recorded.
== END 2024-03-09 08:27 | disposition home or self-care (01) ==
PROVIDERS: PCP Physician Assistant; Visit Provider Orthopaedic Surgery
DX: R94.31 Abnormal electrocardiogram [ECG] [EKG] (principal); I10 Essential (primary) hypertension
CPT/HCPCS: 93005

== ENCOUNTER 2024-03-13 10:22 | Emergency (ER) | payer OTHER, SELFPAY ==
--- NOTE | ~2024-03-13 | CT_ITS ---
EXAMINATION: CT brain wo con DATE: 03/13/2024 11:34 INDICATION: Head injury TECHNIQUE: Computed tomography (CT) of the head was performed without intravenous contrast. Sagittal and coronal reconstructions were performed. The mA was adjusted according to patient size. Iterative reconstruction technique was employed. The dose-length product was 605.33 mGy-cm. COMPARISON: head CT dated 10/04/2021 FINDINGS: No fracture. Specifically the orbits are normal with no orbital wall fractures. No acute intracranial hemorrhage, acute infarction or abnormal extra axial fluid collection. Ventricles are normal and sym metric. No mass/mass effect. The orbits, paranasal sinuses and mastoid air cells are normal. IMPRESSION: 1. Normal head CT. No fracture or acute intracranial process. Reviewed, dictated and finalized at location A. [employer]
[2024-03-13 10:53] VITALS: BP 128/71; PULSE 82; RESP 16; TEMP 36.6; O2SAT 100
--- NOTE | 2024-03-13 11:26 | ED.HEATRA ---
HPI - Head Injury General Chief complaint: Head Injury Stated complaint: 03/10 shelf fell hit head no LOC Time Seen by Provider: 03/13/24 11:18 History of Present Illness HPI Narrative: 58 y/o F presents to the ED for a head injury that occurred 3 days ago. Patient states she was pulling something off of a shelf and the shelf fell on the right side of her head on the parietal scalp. Patient states she did not lose consciousness. She is not anticoagulated. States since then she has been having some pain to the right side of her head, headaches and pressure behind her right eye. States the shot did not hit her eye right eye, she denies foreign body sensation. Denies pain with EOMs, vision changes, focal numbness or weakness. States she is scheduled for an outpatient ankle surgery this week and contacted the office to tell them about her head injury. She was advised to follow-up with her PCP for CT scan, however is on maternity leave and was advised to come to the ER for further evaluation. Related Data Home Medications ?Medication ?Instructions ?Recorded ?Confirmed ?Last Taken ?Type amlodipine 5 mg tablet 5 mg PO DAILY 12/15/23 03/08/24 Unknown History lisinopril 20 mg tablet 20 mg PO DAILY 12/15/23 03/08/24 Unknown History berberine chloride 500 mg capsule 500 mg PO DAILY 03/08/24 03/08/24 Unknown History magnesium glycinate 100 mg (as 300 mg PO DAILY 03/08/24 03/08/24 Unknown History glycinate) tablet (Mag Glycinate) turmeric 400 mg capsule 400 mg PO DAILY 03/08/24 03/08/24 Unknown History Allergies Allergy/AdvReac Type Severity Reaction Status Date / Time No Known Allergies Allergy Verified 03/13/24 10:23 Review of Systems Review of Systems: All systems reviewed & are unremarkable except as noted in HPI and below PMFSH Past Medical History Medical History Tear of peroneal tendon of left foot Hypertension Surgical History Surgical History History of arthroscopic surgery of elbow July 2020 History of knee surgery nov 2012 Family History Family History Unknown Hypertension Social History Social History Social History: caffeine use Smoking status: Never smoker Alcohol intake: current Alcohol use details: Social drinker only and not on a daily basis Substance use: never Living arrangements: with family Occupation/Education: unemployed Gender identity (if verbalized by the patient): Female Spiritual care concerns: No Exam Narrative: GENERAL: Well-appearing, well-nourished, and in no acute distress. HEAD: Normocephalic, atraumatic. EYES: EOMI. No proptosis. No tenderness to orbits, no overlying ecchymosis ENT: Nares clear, no rhinorrhea or epistaxis. Mucous membranes moist. NECK: Supple. CHEST: Clear to auscultation. No respiratory distress. HEART: Regular rate and rhythm. No murmur heard. Normal peripheral pulses. EXTREMITIES: Normal range of motion. No edema. SKIN: Warm, dry, no rash. NEURO: No focal deficits. Alert and oriented x3. Cranial nerves 2-12 intact. Strength 5/5 in BUE and BLE. Sensation intact throughout. Course Vital Signs Vital signs: Vital Signs Temperature 98 F 03/13/24 10:53 Pulse Rate 82 03/13/24 10:53 Respiratory Rate 16 03/13/24 10:53 Blood Pressure 128/71 03/13/24 10:53 Pulse Oximetry 100 03/13/24 10:53 Oxygen Delivery Room Air 03/13/24 10:53 Temperature 97.6 F 03/13/24 12:32 Pulse Rate 67 03/13/24 12:32 Respiratory Rate 16 03/13/24 12:32 Blood Pressure 123/77 03/13/24 12:32 Pulse Oximetry 100 03/13/24 12:32 Oxygen Delivery Room Air 03/13/24 10:53 Discharge Plan Discharge Clinical Impression: Closed head injury Qualifiers: Encounter type: initial encounter Qualified Code(s): S09.90XA - Unspecified injury of head, initial encounter Patient Disposition: Home, Self-Care Condition: Stable Instructions: Antibiotic Form, Concussion (ED), Head Injury (ED) Additional Instructions: The CT of your head is unremarkable. He may have a mild concussion as discussed. Please rest, refrain from technology, light, reading etc. and slowly introduce these back into her life as tolerated. If you feel worse when using devices or exercise, revert back a step. Follow-up with your PCP. Return to the emergency department if you develop vision changes, focal numbness or weakness, seizure like activity, confusion or other concerning symptoms. You can take Tylenol 1000 mg every 6 hours as needed for headache and pain Patient Language: Estonian Prescriptions: No Action lisinopril 20 mg tablet 20 mg PO DAILY amlodipine 5 mg tablet 5 mg PO DAILY clonidine HCl 0.1 mg tablet 0.1 mg PO Q8H PRN (Reason: Systolic BP over 180 or Diastolic over 90 ) Qty: 30 0RF Mag Glycinate 100 mg tablet 300 mg PO DAILY berberine chloride 500 mg capsule 500 mg PO DAILY turmeric 400 mg capsule 400 mg PO DAILY Follow-up/Referrals: Viviana,TYRONE Yeh [Primary Care Provider] -
[2024-03-13 11:39] VITALS: BP 141/84; PULSE 69; RESP 15; O2SAT 100
[2024-03-13] MEDS: IBUPROFEN 400 MG TABLET 800 MG PO (11:41)
[2024-03-13 12:32] VITALS: BP 123/77; PULSE 67; RESP 16; TEMP 36.4; O2SAT 100
--- OUTSIDE RECORDS SUMMARY | 2024-03-15 17:21 | XMS_ITS | Continuity of Care Document ---
Author Name [facility] Organization [facility] Care Team Providers Care Deputy Attorney General Name Role Phone [facility] Unavailable Unavailable Problems [...] Active Condition Zy rtec-D b.i.d. prescribed in [facility] one, computer down [facility] esophageal reflux Active Condition Cont Aciphex [facility] Supervision Of Normal Active Condition Labor precautions. [...] ORAL, [facility]ARM[facility], 1000 ea. BOTTLE Active [id number] 2023 90 Pharmac y Data Transac tion Service Facilit y AMOX TR-POTASSIU M CLAVULANATE (AMOXICILLI N/POTASSIUM CLAV), 875-125 MG, TABLET, ORAL, SANDOZ, 20 ea. BOTTLE Active [id number] 2023 20 Pharmac y Data Transac tion Service Facilit y AMOXICILLIN (AMOXICILLI N), 875MG, TABLET, ORAL, AUROBINDO PHARM, 100 ea. BOTTLE Active [id number] 2023 20 Pharmac y Data Transac tion Service Facilit y DEXAMETHASO NE (dexamethas one), 6 MG, TABLET, ORAL, ALVOGEN INC, 100 ea. BOTTLE Cancele d [id number] : 2023 0 Pharmac y Data Transac tion Service Facilit y LISINOPRIL (lisinopril ), 20 MG, TABLET, ORAL, LUPIN PHARMACEU, 1000 ea. BOTTLE Active [id number] 4 2023 90 Pharmac y Data Transac tion Service Facilit y LISINOPRIL (lisinopril ), 20 MG, TABLET, ORAL, LUPIN PHARMACEU, 1000 ea. BOTTLE Active [id number] : 2023 90 Pharmac y Data Transac tion Service Facilit y PAXLOVID (EUA) (nirmatrelv ir/ritonavi r), 300-100 MG, TAB DS PK, ORAL, PFIZER LABS., 30 ea. 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 Comments Source COVID Vaccine Directa Plus 2020 208 PFIZER complet ed COVID Vaccine Pfizer 11/01/20 Given Ambulat ory Pharmac y COVID-19, mRNA, LNP-S, PF, 30 mcg/0.3 mL dose 2020 JHONY [employer] [place] (PFR) Not Given COVID-19, mRNA, LNP-S, PF, 30 mcg/0.3 mL dose DoD COVID Vaccine Pfizer 2020 208 PFIZER complet ed COVID Vaccine Pfizer 10/09/20 Given Ambulat ory Pharmac y COVID-19, mRNA, LNP-S, PF, 30 mcg/0.3 mL dose 2020 JHONY [employer] [place] (PFR) Not Given COVID-19, mRNA, LNP-S, [...] rubella virus vaccine DoD HepB, Adult 2010 [facility] Arm [id number] 8AA 43 GlaxoSmithKli ne complet ed HepB, Adult 08/04/10 Given Ambulat ory Pharmac y hepatitis B vaccine, adult dosage 3 2010 Unknown, Provider [id number] 8AA 43 SmithKline (SKB) complet ed hepatitis B vaccine, adult dosage DoD tetanus, diphtheria, acellular pertu is 2009 [facility] Arm [id number] 2AA 115 GlaxoSmithKli ne complet ed tetanus, [...] is vaccine, adsorbed 1 2009 Unknown, Provider [id number] 2AA 115 SmithKline (SKB) complet ed tetanus [...] vaccine, whole virus 2003 zzLef t Arm [id number] Novartis Pharmaceutica ls complet ed influenza virus vaccine, whole virus 02/25/03 Given Ambulat ory Pharmac y influenza virus vaccine, whole virus 1 2003 Unknown, Provider [id number] PowderJect Pharmaceutica ls (PWJ) complet ed influenza virus vaccine, whole virus DoD tuberculin purified protein derivative 2000 zzLef t Arm [id number] [facility] complet ed Patient Tolerance : Negative [...] derivative solution, intradermal 1 2000 Unknown, Provider [id number] [place] (CON) complet ed tuberculi n [...] ADM Date DC Date Status Disposition Source [facility](Obs tetrics EG) OUTPATIENT [id number] 33week cob RADHA MAHER Tea 07/21 Released w/o Limitations [facility](O bstetri cs EG) [facility](Obs tetrics EG) OUTPATIENT [id number] ZENOBIA KNIGHT 08/05 Released w/o Limitations [facility](O bstetri cs EG) [facility](Obs tetrics EG) OUTPATIENT [id number] 37 wks CARA KATHARINE ANGELO L 08/17 Released w/o Limitations [facility](O bstetri cs EG) [facility](Obs tetrics EG) OUTPATIENT [id number] c-secti on pre parole counseling aide ing CARA TYLER ANGELO L 08/25 Released w/o Limitations [facility](O bstetri cs EG) [facility] DIRECT TO [facility] FROM OTHER THAN ER OR [facility] [id number] CARAANGELO PATEL L 09/03 DISCHARGED HOME [facility] [address] [facility](Ob Clinic Contracto r) OUTPATIENT [id number] 6 week PP JCS IGNACIA FARSER 10/14 Released w/o Limitations [facility](O b Clinic Contrac tor) [facility]-Co ntractor) TELE CONSULT [id number] WK RELEASE IGNACIA FRASER 11/12 [facility](G yn Clinic- Contrac tor) [facility](Dianna jac[facility]) TELE CONSULT [id number] poss MATIAS POWELL 02/03 [facility](P rimary Care [facility]) [facility](Fam isabel Medicine Residency ) TELE CONSULT [id number] CARGOMAN JUANY DIXON 02/02 NASEEM PAYNE 02/03 [facility](F amily Medicin e Residen ) [facility](Obs tetrics EG) TELE CONSULT [id number] Pt. returni ng your call. LENORA GLOVER 03/21 [facility](O bstetri cs EG) [facility]([employer] ecology EG) OUTPATIENT [id number] LUCILA Agee 04/05 Released w/o Limitations [facility](G ynecolo gy EG) [facility] [place] [place] [facility] OUTPATIENT [id number] walk in uti clinic\ J LUIS RAYA 01/20 Released w/o Limitations [facility] Alexis SHEARER [place]G yne[place]o gy[place] [employer] [facility](Fam isabel [facility] Cl Eg) TELE CONSULT [id number] Mammo Referra l and BCP RAOUL PAOLA Ashby 03/06 [employer] [facility](F amily Health [facility] Cl Eg) [facility](Fam isabel [facility] Cl Eg) OUTPATIENT [id number] WWE. MATIAS ANGULO N 04/03 Released w/o Limitations [facility](F amily [facility] Cl Eg) [facility](Fam isabel [facility] Cl Eg) TELE CONSULT [id number] needs hcg akiko PAOLA SILVEIRA 04/24 [employer] [facility](F amily [facility] Cl Eg) [facility] [facility](Fam isabel [facility] Cl Eg) TELE CONSULT [id number] HCG results RAOUL PAOLA Ashby 04/26 [facility] [employer](F amily [facility] Cl Eg) [facility](Fam isabel [facility] Cl Eg) OUTPATIENT [id number] f/u US results per PCM request MATIAS ANGULO 05/16 Released w/o Limitations [employer] [facility](F amily [facility] Cl Eg) [facility](Per ipheral Vascular Surgery Cl) OUTPATIENT [id number] VARICOS E VEINS NATALIA BENNETT 05/24 Released w/o Limitations [employer](P eripher al Vascula r Surgery Cl) [employer] [facility] [employer](Fam is[facility] Cl Eg) TELE CONSULT [id number] PAOLA SILVEIRA 06/08 [employer](F amily [facility] Cl Eg) [employer] [facility] [employer](Per ipheral Vascular Surgery Cl) OUTPATIENT [id number] US Doppler NATALIA BENNETT 08/22 Released w/o Limitations [employer](P eripher al Vascula r Surgery Cl) [facility](Per ipheral Vascular Surgery Cl) OUTPATIENT [id number] preop NATALIA BENNETT 10/30 Released w/o Limitations [employer] [facility](P eripher al Vascula r Surgery Cl) [facility](Per ipheral Vascular Surgery Cl) OUTPATIENT [id number] f/u right vnus NATALIA BENNETT 11/28 Released w/o Limitations [employer](P eripher al Vascula r Surgery Cl) [employer] [facility](Per ipheral Vascular Surgery Cl) OUTPATIENT [id number] sclerot herapy NATALIA BENNETT 12/28 Released w/o Limitations [employer] [facility](P eripher al Vascula r Surgery Cl) [employer](Fam isabel [facility] Cl Eg) TELE CONSULT [id number] Rx Refills MATIAS ANGULO N 04/11 [employer](F [facility]ily [facility] Cl Eg) [employer] [facility](Fam is[facility] Cl Eg) OUTPATIENT [id number] Annual pap.... CC MATIAS ANGULO N 05/08 Released w/o Limitations [employer](F amily [facility] Cl Eg) [employer]([facility]am is[facility] Cl Eg) TELE CONSULT [id number] SHANNON TAPIA 05/09 [employer](F amily [facility] Cl Eg) [employer](Per ipheral Vascular Surgery Cl) OUTPATIENT [id number] sclero NATALIA BENNETT 05/10 Released w/o Limitations [employer](P eripher al Vascula r Surgery Cl) [employer](Fam isabel [facility] Cl Eg) OUTPATIENT [id number] f/u labs... jlm MATIAS ANGULO N 06/17 Released w/o Limitations [employer](F amily [facility] Cl Eg) [employer](Ort hopedic EG) OUTPATIENT [id number] OSTEOCH ONDRITI S DISSECA DIANE TOURE 07/09 Released w/o Limitations [employer] [facility](O rthoped ic EG) [employer] [facility](Ort hopedic EG) OUTPATIENT [id number] LEFT KNEE PAIN PER EDITH HIGGINS 07/12 Released w/o Limitations [facility](O rthoped ic EG) [facility](Phy sical Therapy 0024) OUTPATIENT [id number] joint pain, localiz ed in the knee YOLANDA COLINDRES Margarita 07/24 Released w/o Limitations [employer](P hysical Therapy 0024) [employer] [facility](Phy sical Therapy 0024) OUTPATIENT [id number] KAMLESH SMYTH 07/29 Released w/o Limitations [employer] [facility](P hysical Therapy 0024) [employer](Fam is[facility] Cl Eg) OUTPATIENT [id number] WWE/PAP ..BES RODO PHAM 04/01 Released w/o Limitations [employer] [facility](F am[facility] Cl Eg) [facility] [facility](Per ipheral Vascular Surgery Cl) OUTPATIENT [id number] NATALIA RODRÍGUEZ 04/11 Released w/o Limitations [employer] [facility](P eripher al Vascula r Surgery Cl) [employer](Fam isabel Advocacy- Count) OUTPATIENT [id number] oversea s WILY Ellison 07/02 Released w/o Limitations [employer](F amily Advocac y-Count ) [employer]([facility] isabel [facility] Cl Eg) OUTPATIENT [id number] back pain ALBA BOB ARMANDO 07/24 Released w/o Limitations [employer](F [facility] Cl Eg) [employer] [facility](Per ipheral Vascular Surgery Cl) OUTPATIENT [id number] NATALIA Rodríguez 10/02 Released w/o Limitations [employer] [facility](P eripher al Vascula r Surgery Cl) [employer]([facility] ent Care Clinic) OUTPATIENT [id number] Poss UTI NASEEM MARIANO 11/01 Released w/o Limitations [facility](U rgent Care Clinic) [employer]([facility] isabel Practice Clinic) OUTPATIENT [id number] discuss back issues/ control from prev base MARIELA GONZALEZ 12/28 Released w/o Limitations [employer] [facility](F amily Practic e Clinic) [employer] [facility](Phy sical Therapy) OUTPATIENT [id number] NASEEM Mckeon 01/12 Released w/o Limitations [employer](P hysical Therapy ) [employer] [facility](Phy sical Therapy) OUTPATIENT [id number] f/u for back NASEEM MARINO 01/27 Released w/o Limitations [employer] [facility](P hysical Therapy ) [employer]([facility] isabel Practice Clinic) TELE CONSULT [id number] GONZALEZMARIELA LOVETT Tara 02/04 [employer] [employer] [facility](F amily Practic e Clinic) [employer](Phy sical Therapy) OUTPATIENT [id number] f/u back NASEEM MARINO 03/10 Released w/o Limitations [employer] [facility](P hysical Therapy ) [employer]([facility] isabel Practice Clinic) OUTPATIENT [id number] sore throat, red spots in mouth MARIELA GONZALEZ Tara 03/22 Released w/o Limitations [facility](F amily Practic e Clinic) [facility](Urg ent Care Clinic) OUTPATIENT [id number] fell on ice SALONI NATALIA Rosalie 03/30 Released w/o Limitations [facility](U rgent Care Clinic) [employer] [facility](Ort hopedic Clinic) OUTPATIENT [id number] closed fractur e head of the radius SAWADEN 04/07 Released with Work/Duty Limitations [facility] [facility](O rthoped ic Clinic) [facility](Ort hopedic Clinic) OUTPATIENT [id number] f/u range of motion & L elbow SAW ADEN Mena 04/19 Released with Work/Duty Limitations [employer] [employer] [facility](O rthoped ic Clinic) [employer](Ort hopedic Clinic) OUTPATIENT [id number] POLY ADEN Mena 05/18 Released with Work/Duty Limitations [facility](O rthoped ic Clinic) [facility] [facility](Ort hopedic Clinic) OUTPATIENT [id number] f/u for L elbow SAWADEN 06/10 Released with Work/Duty Limitations [facility] [facility](O rthoped ic Clinic) [facility](Opt ometry Clinic) OUTPATIENT [id number] eye exam, pt wears glasses and contact s MATHEW SELLERS 07/14 Released w/o Limitations [employer] [facility](O ptometr y Clinic) [employer]([facility] isabel Practice [facility]) TELE CONSULT [id number] Allergy issues/ Medicat ion/Lab s JOSEFINA LOW 07/23 Released to Self Care [facility] [facility](F amily Practic e Clinic) [employer]([facility] Practice [facility]) OUTPATIENT [id number] poss sinus infecti on BLANK WRIGHT 08/20 Released w/o Limitations [employer] [facility](F amily Practic e Clinic) [employer](Urg ent Care Clinic) OUTPATIENT [id number] Eye irritat ion NASEEM MARIANO 10/11 Released w/o Limitations [facility](U rgent Care Clinic) [employer](Opt ometry Clinic) OUTPATIENT [id number] Eye irritat ion while using CL ARLYN MARRUFO 12/22 Released w/o Limitations [employer] [employer] [facility](O ptometr y Clinic) [employer](Opt ometry Clinic) OUTPATIENT [id number] F/U showtim e 1530 ARLYN MARRUFO 01/13 Released w/o Limitations [employer] [facility](O ptometr y Clinic) [employer](Opt ometry Clinic) OUTPATIENT [id number] Pt here for cl's eval OU ARLYN MARRUFO 01/22 Released w/o Limitations [employer](O ptometr y Clinic) [facility](Opt ometry Clinic) OUTPATIENT [id number] CL f/u ARLYN MARRUFO 02/18 Released w/o Limitations [employer](O ptometr y Clinic) [employer](Opt ometry Clinic) OUTPATIENT [id number] Cl f/u ARLYN MARRUFO 02/25 Released w/o Limitations [employer](O ptometr y Clinic) [employer]([facility] Team B) OUTPATIENT [id number] vomitin g ,fever and congeti ons NATALIA KINSEY 03/11 Released w/o Limitations [employer](Brian brito [facility] Team B) [employer]([facility] Team A) OUTPATIENT [id number] no menstru al for 6 mnths AQUILINO BEARDEN 05/16 Released w/o Limitations [employer]([facility] Team A) [employer] [facility](Opt ometry Clinic) OUTPATIENT [id number] REE F/u ARLYN MARRUFO E 10/17 Released w/o Limitations [employer](O ptometr y Clinic) [facility](Int ernal Medicine Clinic) OUTPATIENT [id number] f/u labs 15m EVON CHRISTOPHER 10/30 Released w/o Limitations [employer] [facility](I nternal Medicin e Clinic) [facility] [facility](Opt ometry Clinic) OUTPATIENT [id number] F/u for contact lens MARRUFOARLYN Curran E 12/12 Released w/o Limitations [facility](O ptometr y Clinic) [facility](Int ernal Medicine Clinic) OUTPATIENT [id number] F/U MEDS 15M EVON CHRISTOPHER 12/14 Released w/o Limitations [facility](I nternal Medicin e Clinic) [employer] [facility] [employer](Opt ometry Clinic) OUTPATIENT [id number] f/u for contact lens fitting ARLYN MARRUFO E 01/10 Released w/o Limitations [employer](O ptometr y Clinic) [employer]([facility] Team B) OUTPATIENT [id number] knee pain ROMAN LEMA 01/30 Released w/o Limitations [employer]([facility] Team B) [employer]([facility] Team A) TELE CONSULT [id number] Notes Entered by: ALEX LEMA 09 Feb 2012 1544 ------- ------- ------- ------- -- Mri request ROMAN LEMA 02/08 [employer]([facility] Team A) [employer] [facility] [employer](Ort hopedic Clinic) OUTPATIENT [id number] joint pain, localiz ed in the lt knee ALEXIA BRYANT X 03/23 Released w/o Limitations [employer](O rthoped ic Clinic) [facility](Int ernal Medicine Clinic) OUTPATIENT [id number] f/u meds/ba ck pain EVON CHRISTOPHER 04/03 Released w/o Limitations [facility](I nternal Medicin e Clinic) [facility](Ort hopedic Clinic) OUTPATIENT [id number] lt knee,PA LISBETH Marino 04/18 Released w/o Limitations [facility](O rthoped ic Clinic) [employer] [facility](Phy sical Therapy) OUTPATIENT [id number] lumbago with lle radicul opathy, trial therapy /tens unit MANDY MERRILL 04/24 Released w/o Limitations [employer] [facility](P hysical Therapy ) [employer] [facility](Phy sical Therapy) OUTPATIENT [id number] MAIK Nicholas 04/28 Released w/o Limitations [employer](P hysical Therapy ) [employer] [facility](Phy sical Therapy) OUTPATIENT [id number] lower back MAIK BURNHAM 05/14 Released w/o Limitations [facility] [facility](P hysical Therapy ) [facility](Phy sical Therapy) OUTPATIENT [id number] lower back BIRMINGHAMERNESTO 05/17 Released w/o Limitations [facility](P hysical Therapy ) [facility](Phy sical Therapy) OUTPATIENT [id number] lower back MAIK BURNHAM 05/22 Released w/o Limitations [facility](P hysical Therapy ) [employer] [facility](Phy sical Therapy) OUTPATIENT [id number] lower back MAIK BURNHAM 05/24 Released w/o Limitations [facility](P hysical Therapy ) [facility] [facility](Phy sical Therapy) OUTPATIENT [id number] MAIK BURNHAM 06/08 Released w/o Limitations [facility](P hysical Therapy ) [employer] [facility](Phy sical Therapy) OUTPATIENT [id number] MAIK BURNHAM 06/12 Released w/o Limitations [facility] [facility](P hysical Therapy ) [employer] [facility](Phy sical Therapy) OUTPATIENT [id number] MAIK Nicholas 06/14 Released w/o Limitations [employer] [facility](P hysical Therapy ) [employer](Mis radha [facility] Team B) OUTPATIENT [id number] PERSONA L ISSUES FAUSTINO CLARK 06/29 Released w/o Limitations [employer]([facility] Team B) [facility]) OUT[place] [id number] eval on left knee ANTOINE JUSTICE 09/29 Released w/o Limitations [facility]) [employer] [facility] [employer]([facility] Team B) OUTPATIENT [id number] checkup FAUSTINO CLARK 11/07 Released w/o Limitations [employer]([facility] Team B) [employer](Ort hopedic Clinic) OUTPATIENT [id number] left knee pain f/u LISBETH MCDANIELS 11/21 Released w/o Limitations [employer](O rthoped ic Clinic) [facility]) OUTPATIENT [id number] DOS 30OCT RESHMA LEFT KNEE OCA TRANSPL ANT ANTOINE JUSTICE R 12/18 Released w/o Limitations [facility] [facility] [place] DIRECT TO [facility] FROM OTHER THAN ER OR [facility] [id number] ANTOINE JUSTICE R 12/19 DISCHARGED HOME [facility] [place]Phys[place] INPATIENT [id number] Notes Entered by: MATHEW MATTSON 21 Dec 2012 1013 ------- ------- ------- ------- -- Inpt PT MATHEW MATTSON 12/21 Inpatient- Still a Patient [facility] [place]) INPATIENT [id number] Notes Entered by: CASTILLO CHOI 21 Dec 2012 1207 ------- ------- ------- ------- -- Inishane EARL Brannon O.T. 12/21 Inpatient- Still a Patient [facility] [place] INPATIENT [id number] RO ALAN Brian 12/22 Inpatient- Still a Patient [facility]) [facility] INPATIENT [id number] Notes Entered by: Seymour JULES 22 Dec 2012 1510 ------- ------- ------- ------- -- Inpt PT TRAVIS WILKINS 12/23 Inpatient- Still a Patient [facility] [facility] INPATIENT [id number] Notes Entered by: Tara GALAN 23 Dec 2012 1114 ------- ------- ------- ------- -- inpt PT AQUILINO GALAN 12/23 Inpatient- Still a Patient [facility] [facility] INPATIENT [id number] Notes Entered by: ASHER BAIRES 24 Dec 2012 1255 ------- ------- ------- ------- -- Inpatie nt physica l therapy MARIELA JHA 12/24 Inpatient- Still a Patient [facility] [place] [facility] OUTPATIENT [id number] Notes Entered by: TIM HERNANDEZ 24 Dec 2012 1907 ------- ------- ------- ------- -- Case Managem ent CAMERON HERNANDEZ 12/25 Released w/o Limitations [facility] [facility] OUTPATIENT [id number] s/p L/K OCA A/E dos Nov ANTOINE JUSTICE 12/26 Released w/o Limitations [facility] [facility] OUTPATIENT [id number] LEFT knee OCA transpl ant, air evac from SARAH Borjas 12/27 Released w/o Limitations [facility] [facility] [id number] i treatme nt per LT. DELMAR NOVAK 12/27 [place]ased w/o Limitations [facility] [facility] [id number] treatme nt JANES العراقي 12/28 Released w/o Limitations [facility] [facility] [id number] treatme nt JANES العراقي 12/29 [place]ased w/o Limitations [facility] [facility] [id number] treatme nt DELMAR NOVAK 01/02 Released w/o Limitations [facility] [facility] [id number] treatme nt\ DELMAR NOVAK 01/03 [place]ased w/o Limitations [facility] [facility]IENT [id number] treatme nt JANES العراقي 01/04 Released w/o Limitations [facility] [facility] OUT[place] [id number] Notes Entered by: TIM HERNANDEZ 04 Jan 2013 1615 ------- ------- ------- ------- -- Case Managem ent CAMERON HERNANDEZ 01/05 Released w/[place] Limitations [facility] [facility] [id number] f/u on left knee RESHMASHAYNEJEMAL Pacheco 01/05 [place]ased [place]/o Limitations [facility] [facility]IENT [id number] treatme nt DELMAR NOVAK 01/05 Released w/o Limitations [facility]) [employer](Sergio e Managemen t Services) TELE CONSULT [id number] Notes Entered by: BRENNAAMYSA Metcalf 10 Jan 2013 0904 ------- ------- ------- ------- -- Follow up AE/Lowe r extremi ty rpr BRENNAAMYSA Metcalf 01/10 Referred for Appointment [facility](C ase Managem ent Service s) [employer] [facility](Ort hopedic Clinic) OUTPATIENT [id number] post op lt knee HARLEY CONTRERAS L 01/10 Released with Work/Duty Limitations [employer](O rthoped ic Clinic) [employer](Phy sical Therapy) OUTPATIENT [id number] post op lt knee MANDY MERRILL S 01/11 Released w/o Limitations [employer](P hysical Therapy ) [employer](Phy sical Therapy) OUTPATIENT [id number] post op lt knee MARIELA ELDER N 01/16 Released w/o Limitations [employer] [facility](P hysical Therapy ) [employer](Phy sical Therapy) OUTPATIENT [id number] post op lt knee MARIELA ELDER N 01/22 Released w/o Limitations [employer] [facility](P hysical Therapy ) [employer](Phy sical Therapy) OUTPATIENT [id number] post op lt knee MARIELA ELDER N 01/24 Released w/o Limitations [employer] [facility](P hysical Therapy ) [employer](Phy sical Therapy) OUTPATIENT [id number] post op lt knee MARIELA ELDER N 01/26 Released w/o Limitations [employer](P hysical Therapy ) [employer](Phy sical Therapy) OUTPATIENT [id number] post op lt knee MARIELA ELDER N 01/28 Released w/o Limitations [employer](P hysical Therapy ) [employer](Phy sical Therapy) OUTPATIENT [id number] post op lt knee MARIELA ELDER N 01/31 Released w/o Limitations [employer](P hysical Therapy ) [employer](Phy sical Therapy) OUTPATIENT [id number] post op lt knee MARIELA ELDER N 02/02 Released w/o Limitations [employer](P hysical Therapy ) [employer](Phy sical Therapy) OUTPATIENT [id number] post op lt knee MARIELA ELDER N 02/04 Released w/o Limitations [employer](P hysical Therapy ) [employer]([facility]) OUTPATIENT [id number] post op lt knee HARLEY CONTRERAS 02/06 Released with Work/Duty Limitations [employer](O [facility]thoped ic Clinic) [employer](Phy sical Therapy) OUTPATIENT [id number] post op lt knee MARIELA ELDER N 02/07 Released w/o Limitations [employer](P [facility]ysical Therapy ) [employer]([facility]hy [facility]ical Therapy) OUTPATIENT [id number] Afterca re Followi ng Surgery Of Musculo skeleta l MANDY Cummings 02/09 Released w/o Limitations [employer](P [facility]ysical Therapy ) [employer]([facility]) OUTPATIENT [id number] MARIELA ELDER N 02/13 Released w/o Limitations [employer](P [facility]ysical Therapy ) [employer]([facility]hy [facility]ical Therapy) OUTPATIENT [id number] MARIELA ELDER N 02/16 Released w/o Limitations [employer](P [facility]ysical Therapy ) [employer]([facility]ical Therapy) OUTPATIENT [id number] ERNESTO BIRMINGHAM 02/20 Released w/o Limitations [employer](P [facility]ysical Therapy ) [employer](Phy [facility]ical Therapy) OUTPATIENT [id number] ERNESTO [place]IRMINGHAM 02/23 Released w/o Limitations [employer](P hysical Therapy ) [employer]([facility]hy [facility]ical Therapy) OUTPATIENT [id number] ERNESTO BIRMINGHAM 03/01 Released w/o Limitations [employer](P [facility]ysical Therapy ) [employer]([facility]hy [facility]ical Therapy) OUTPATIENT [id number] MARIELA ELDER N 03/04 Released w/o Limitations [employer]([facility]ical Therapy ) [employer] OUTPATIENT [id number] F/U post op lt knee HARLEY CONTRERAS 03/06 Released with Work/Duty Limitations [employer]([facility]) [employer](Int ernal Medicine Clinic) TELE CONSULT [id number] Notes Entered by: Magdy SMITH 07 Mar 2013 1104 ------- ------- ------- ------- -- med refill calcium w/ vit D EUGENE BRAND 03/07 Released to Self [facility] [employer](I nternal Medicin e Clinic) [employer](Phy sical Therapy) OUTPATIENT [id number] MARIELA ELDER N 03/07 Released w/o Limitations [employer](P [facility]ysical Therapy ) [employer]([facility]hy [facility]ical Therapy) OUTPATIENT [id number] lt knee MANDY MERRILL Magdy 03/09 Released w/o Limitations [employer]([facility]ical Therapy ) [employer]([facility]ical Therapy) OUTPATIENT [id number] lt knee ERNESTO BIRMINGHAM Seymour 03/14 Released w/o Limitations [employer](P [facility]ysical Therapy ) [employer](Phy [facility]ical Therapy) OUTPATIENT [id number] lt knee BIRMINGHAMERNESTO 03/16 Released w/o Limitations [employer]([facility]ysical Therapy ) [employer](Phy [facility]ical Therapy) OUTPATIENT [id number] ERNESTO BIRMINGHAM 03/23 Released w/o Limitations [employer](P [facility]ysical Therapy ) [employer](Phy [facility]ical Therapy) OUTPATIENT [id number] lt knee MARIELA ELDER N 03/28 Released w/o Limitations [employer](P [facility]ysical Therapy ) [employer](Phy sical Therapy) OUTPATIENT [id number] lt knee MARIELA ELDER N 03/30 Released w/o Limitations [employer](P [facility]ysical Therapy ) [employer](Phy [facility]ical Therapy) OUTPATIENT [id number] lt knee MARIELA ELDER N 04/02 Released w/o Limitations [employer]([facility]ical Therapy ) [employer](Phy [facility]ical Therapy) OUTPATIENT [id number] lt knee MARIELA ELDER N 04/04 Released w/o Limitations [employer](P [facility]ysical Therapy ) [employer](Phy [facility]ical Therapy) OUTPATIENT [id number] lt knee MARIELA ELDER N 04/06 Released w/o Limitations [employer](P [facility]ysical Therapy ) [employer](Phy sical Therapy) OUTPATIENT [id number] lt knee ERNESTO BIRMINGHAM C 04/11 Released w/o Limitations [employer](P hysical Therapy ) [employer](Phy sical Therapy) OUTPATIENT [id number] lt knee MARIELA ELDER N 04/16 Released w/o Limitations [employer](P [facility]ysical Therapy ) [employer](Phy sical Therapy) OUTPATIENT [id number] f/u lt knee MANDY MERRILL S 04/18 Released w/o Limitations [employer](P [facility]ysical Therapy ) [employer](Phy sical Therapy) OUTPATIENT [id number] left knee ERNESTO BIRMINGHAM 04/20 Released w/o Limitations [employer](P [facility]ysical Therapy ) [employer](Phy sical Therapy) OUTPATIENT [id number] left knee ERNESTO BIRMINGHAM 04/22 Released w/o Limitations [employer](P hysical Therapy ) [employer]([facility] Team A) TELE CONSULT [id number] Notes Entered by: MARIA R BASS 23 Apr 2013 0940 ------- ------- ------- ------- -- BLOOD IN URINE FAUSTINO CLARK 04/23 [employer](Brian brito [facility] Team A) [employer]([facility] Team B) OUTPATIENT [id number] UTI positiv e labs COLT VILLAREAL 04/23 Released w/o Limitations [employer]([facility] Team B) [employer](Phy sical Therapy) OUTPATIENT [id number] left knee MARIELA ELDER N 04/24 Released w/o Limitations [employer](P hysical Therapy ) [employer](Phy sical Therapy) OUTPATIENT [id number] left knee MARIELA ELDER N 04/26 Released w/o Limitations [employer](P [facility]ysical Therapy ) [employer](Phy sical Therapy) OUTPATIENT [id number] left knee MARIELA ELDER N 04/29 Released w/o Limitations [employer](P [facility]ysical Therapy ) [employer](Phy sical Therapy) OUTPATIENT [id number] left knee MARIELA ELDER N 05/02 Released w/o Limitations [employer]([facility]ysical Therapy ) [employer]([facility]) OUTPATIENT [id number] f/u post op LISBETH MCDANIELS 05/03 Released w/o Limitations [employer]) [employer]([facility] Disease Managemen t) TELE CONSULT [id number] Notes Entered by: MARGO CEJA 03 May 2013 1609 ------- ------- ------- ------- -- Overdue Mammogr am MARGO CEJA 05/03 Referred for Appointment [employer]([facility] Disease [facility]) [employer](Phy sical Therapy) OUTPATIENT [id number] left knee MARIELA ELDER N 05/04 Released w/o Limitations [employer](P hysical Therapy ) [employer](Phy sical Therapy) OUTPATIENT [id number] left knee ERNESTO BIRMINGHAM Seymour 05/06 Released w/o Limitations [employer]ysical Therapy ) [employer](Phy [facility]ical Therapy) OUTPATIENT [id number] left knee MARIELA ELDER N 05/09 Released w/o Limitations [employer]([facility]ical Therapy ) [employer](Phy [facility]ical Therapy) OUTPATIENT [id number] f/u left knee MANDY MERRILL 05/15 Released w/o Limitations [employer](P hysical Therapy ) [employer](Phy [facility]ical Therapy) OUTPATIENT [id number] left knee MARIELA ELDER N 05/16 Released w/o Limitations [employer](P hysical Therapy ) [employer](Phy sical Therapy) OUTPATIENT [id number] left knee MARIELA ELDER N 05/18 Released w/o Limitations [employer](P hysical Therapy ) [employer](Phy sical Therapy) OUTPATIENT [id number] left knee MARIELA ELDER N 05/20 Released w/o Limitations [employer](P hysical Therapy ) [employer](Phy [facility]ical Therapy) OUTPATIENT [id number] left MARIELA Leong N 05/24 Released w/o Limitations [employer](P hysical Therapy ) [employer](Phy sical Therapy) OUTPATIENT [id number] left knee MARIELA ELDER N 05/27 Released w/o Limitations [employer](P [facility]ysical Therapy ) [employer](Phy [facility]ical Therapy) OUTPATIENT [id number] MARIELA CARRERO N 05/29 Released w/o Limitations [employer](P [facility]ysical Therapy ) [employer]ical Therapy) OUTPATIENT [id number] left MARIELA Leong N 06/07 Released w/o Limitations [employer](P hysical Therapy ) [employer](Opt ometry Clinic) OUTPATIENT [id number] ree/ contact lens rx ADEN DUVALL 06/08 Released w/o Limitations [employer](O ptometr y Clinic) [employer](Phy sical Therapy) OUTPATIENT [id number] left knee MARIELA ELDER N 06/11 Released w/o Limitations [employer](P hysical Therapy ) [employer]([facility]hy [facility]ical Therapy) OUTPATIENT [id number] left MARIELA Leong N 06/13 Released w/o Limitations [employer](P hysical Therapy ) [employer](Phy sical Therapy) OUTPATIENT [id number] ERNESTO BIRMINGHAM 06/15 Released w/o Limitations [employer](P hysical Therapy ) [employer](Phy sical Therapy) OUTPATIENT [id number] left knee ERNESTO BIRMINGHAM 06/17 Released w/o Limitations [employer](P hysical Therapy ) [employer](Phy sical Therapy) OUTPATIENT [id number] MARIELA ELDER N 06/20 Released w/o Limitations [employer](P hysical Therapy ) [employer](Phy sical Therapy) OUTPATIENT [id number] ERNESTO BIRMINGHAM 06/21 Released w/o Limitations [employer](P hysical Therapy ) [employer](Phy sical Therapy) OUTPATIENT [id number] ERNESTO BIRMINGHAM 06/28 Released w/o Limitations [employer](P hysical Therapy ) [employer](Phy sical Therapy) OUTPATIENT [id number] left knee MANDY MERRILL S 07/02 Released w/o Limitations [employer](P hysical Therapy ) [employer](Opt ometry Clinic) OUTPATIENT [id number] DFE showtim e 14:15 ADEN DUVALL 07/03 Released w/o Limitations [employer](O ptometr y Clinic) [employer](Phy sical Therapy) OUTPATIENT [id number] lt knee MARIELA ELDER N 07/11 Released w/o Limitations [employer](P hysical Therapy ) [employer](Phy sical Therapy) OUTPATIENT [id number] lt knee MARIELA ELDER N 07/18 Released w/o Limitations [employer](P hysical Therapy ) [employer](Phy sical Therapy) OUTPATIENT [id number] lt knee ERNESTO BIRMINGHAM 07/23 Released w/o Limitations [employer](P hysical Therapy ) [employer](Phy sical Therapy) OUTPATIENT [id number] Notes Entered by: ERNESTO BIRMINGHAM 26 Jul 2013 1029 ------- ------- ------- ------- -- L knee pain ERNESTO BIRMINGHAM 07/26 Released w/o Limitations [employer](P hysical Therapy ) [employer](Phy sical Therapy) OUTPATIENT [id number] lt knee ERNESTO BIRMINGHAM 07/29 Released w/o Limitations [employer](P hysical Therapy ) [employer](Mis radha [facility] Team B) OUTPATIENT [id number] medicat ion evaluat ion AMBERFAUSTINO 08/02 Released w/o Limitations [employer](Brian brito [facility] Team B) No Facility Access History [id number] 11/03 No Facilit y Access [facility] [id number] 11/03 Ambulat ory Pharmac y Procedures Combined list of: 1) Procedures from Department of [facility], not all VA non-surgical procedures are included; 2) All procedures from the Department of Defense facilities. Procedure Procedure Type Code Date Perfomer Comments [facility] e THERAPEUTIC PROCEDURE,1 OR MORE AREAS,EACH 15 MINUTES;NEUROMUSCUL AR REEDUCATION OF MOVEMENT,BALANCE,CO ORDINATION,KINESTHE TIC SENSE,POSTURE,AND/O R PROPRIOCEPTION FOR SITTING AND/OR STANDING ACTIVITIES [facility] CASE MANAGEMENT, EACH 15 MINUTES [facility] THERAPEUTIC PROCEDURE,1 OR MORE AREAS,EACH 15 MINUTES;NEUROMUSCUL AR REEDUCATION OF MOVEMENT,BALANCE,CO ORDINATION,KINESTHE TIC SENSE,POSTURE,AND/O R PROPRIOCEPTION FOR SITTING AND/OR STANDING ACTIVITIES [facility] POSTOPERATIVE FOLLOW-UP VISIT, NORMALLY INCLUDED IN THE SURGICAL PACKAGE, INDICATE THAT EVALUATION & MANAGEMENT SERVICE WAS PERFORMED DURING A POSTOPERATIVE PERIOD REASON RELATED ORIGINAL PROCEDURE [facility] THERAPEUTIC PROCEDURE,1 OR MORE AREAS,EACH 15 MINUTES;NEUROMUSCUL AR REEDUCATION OF MOVEMENT,BALANCE,CO ORDINATION,KINESTHE TIC SENSE,POSTURE,AND/O R PROPRIOCEPTION FOR SITTING AND/OR STANDING ACTIVITIES [facility] THERAPEUTIC PROCEDURE,1 OR MORE AREAS,EACH 15 MINUTES;NEUROMUSCUL AR REEDUCATION OF MOVEMENT,BALANCE,CO ORDINATION,KINESTHE TIC SENSE,POSTURE,AND/O R PROPRIOCEPTION FOR SITTING AND/OR STANDING ACTIVITIES [facility] THERAPEUTIC PROCEDURE,1 OR MORE AREAS,EACH 15 MINUTES;NEUROMUSCUL AR REEDUCATION OF MOVEMENT,BALANCE,CO ORDINATION,KINESTHE TIC SENSE,POSTURE,AND/O R PROPRIOCEPTION FOR SITTING AND/OR STANDING ACTIVITIES [facility] THERAPEUTIC PROCEDURE,1 OR MORE AREAS,EACH 15 MINUTES;NEUROMUSCUL AR REEDUCATION OF MOVEMENT,BALANCE,CO ORDINATION,KINESTHE TIC SENSE,POSTURE,AND/O R PROPRIOCEPTION FOR SITTING AND/OR STANDING ACTIVITIES [facility] THERAPEUTIC PROCEDURE,1 OR MORE AREAS,EACH 15 MINUTES;NEUROMUSCUL AR REEDUCATION OF MOVEMENT,BALANCE,CO ORDINATION,KINESTHE TIC SENSE,POSTURE,AND/O R PROPRIOCEPTION FOR SITTING AND/OR STANDING ACTIVITIES [facility] PHYSICAL THERAPY EVALUATION [facility] POSTOPERATIVE FOLLOW-UP VISIT, NORMALLY INCLUDED IN THE SURGICAL PACKAGE, INDICATE THAT EVALUATION & MANAGEMENT SERVICE WAS PERFORMED DURING A POSTOPERATIVE PERIOD REASON RELATED ORIGINAL PROCEDURE [facility] CASE MANAGEMENT, EACH 15 MINUTES [facility] EXCISION OF SEMILUNAR CARTILAGE OF KNEE [facility] OTHER REPAIR OF KNEE [facility] THERAPEUTIC PROCEDURE, 1 OR MORE AREAS, EACH 15 MINUTES; THERAPEUTIC EXERCISES TO DEVELOP STRENGTH AND ENDURANCE, RANGE OF MOTION AND FLEXIBILITY [facility] POSTOPERATIVE FOLLOW-UP VISIT, NORMALLY INCLUDED IN THE SURGICAL PACKAGE, INDICATE THAT EVALUATION & MANAGEMENT SERVICE WAS PERFORMED DURING A POSTOPERATIVE PERIOD REASON RELATED ORIGINAL PROCEDURE [facility] THERAPEUTIC ACTIVITIES, DIRECT (ONE-ON-ONE) PATIENT CONTACT (USE OF DYNAMIC ACTIVITIES TO IMPROVE FUNCTIONAL PERFORMANCE), EACH 15 MINUTES [facility] POSTOPERATIVE FOLLOW-UP VISIT, NORMALLY INCLUDED IN THE SURGICAL PACKAGE, INDICATE THAT EVALUATION & MANAGEMENT SERVICE WAS PERFORMED DURING A POSTOPERATIVE PERIOD REASON RELATED ORIGINAL PROCEDURE [facility] THERAPEUTIC PROCEDURE, 1 OR MORE AREAS, EACH 15 MINUTES; GAIT TRAINING (INCLUDES STAIR CLIMBING) [facility] SELF-CARE/HOME MANAGMENT TRAIN (EG,ACT OF DAILY LIVING (ADL) &COMPENSAT TRAIN,MEAL PREPARATION,SAFETY PROCS,AND INSTRUCT IN USE OF ASST TECHNOLOGY DEV/ADPT EQUIP) DIR ONE-ON-ONE CONT,EA 15 MINUTES [facility] POSTOPERATIVE FOLLOW-UP VISIT, NORMALLY INCLUDED IN THE SURGICAL PACKAGE, INDICATE THAT EVALUATION & MANAGEMENT SERVICE WAS PERFORMED DURING A POSTOPERATIVE PERIOD REASON RELATED ORIGINAL PROCEDURE [facility] OCCUPATIONAL THERAPY EVALUATION [facility] THERAPEUTIC ACTIVITIES, DIRECT (ONE-ON-ONE) PATIENT CONTACT (USE OF DYNAMIC ACTIVITIES TO IMPROVE FUNCTIONAL PERFORMANCE), EACH 15 MINUTES [facility] POSTOPERATIVE FOLLOW-UP VISIT, NORMALLY INCLUDED IN THE SURGICAL PACKAGE, INDICATE THAT EVALUATION & MANAGEMENT SERVICE WAS PERFORMED DURING A POSTOPERATIVE PERIOD REASON RELATED ORIGINAL PROCEDURE [facility] ARTHROSCOPY, KNEE, SURGICAL; OSTEOCHONDRAL ALLOGRAFT (EG, MOSAICPLASTY) [facility] THERAPEUTIC PROCEDURE, 1 OR MORE AREAS, EACH 15 MINUTES; THERAPEUTIC EXERCISES TO DEVELOP STRENGTH AND ENDURANCE, RANGE OF MOTION AND FLEXIBILITY [facility] THERAPEUTIC PROCEDURE, 1 OR MORE AREAS, EACH 15 MINUTES; THERAPEUTIC EXERCISES TO DEVELOP STRENGTH AND ENDURANCE, RANGE OF MOTION AND FLEXIBILITY [facility] THERAPEUTIC PROCEDURE, 1 OR MORE AREAS, EACH 15 MINUTES; THERAPEUTIC EXERCISES TO DEVELOP STRENGTH AND ENDURANCE, RANGE OF MOTION AND FLEXIBILITY [facility] THERAPEUTIC PROCEDURE, 1 OR MORE AREAS, EACH 15 MINUTES; THERAPEUTIC EXERCISES TO DEVELOP STRENGTH AND ENDURANCE, RANGE OF MOTION AND FLEXIBILITY [facility] THERAPEUTIC PROCEDURE, 1 OR MORE AREAS, EACH 15 MINUTES; THERAPEUTIC EXERCISES TO DEVELOP STRENGTH AND ENDURANCE, RANGE OF MOTION AND FLEXIBILITY [facility] OPHTHALMOLOGICAL SERVICES: MEDICAL EXAMINATION AND EVALUATION, WITH INITIATION OR CONTINUATION OF DIAGNOSTIC AND TREATMENT PROGRAM; COMPREHENSIVE, ESTABLISHED PATIENT, 1 OR MORE VISITS [facility] THERAPEUTIC PROCEDURE, 1 OR MORE AREAS, EACH 15 MINUTES; THERAPEUTIC EXERCISES TO DEVELOP STRENGTH AND ENDURANCE, RANGE OF MOTION AND FLEXIBILITY [facility] THERAPEUTIC PROCEDURE, 1 OR MORE AREAS, EACH 15 MINUTES; THERAPEUTIC EXERCISES TO DEVELOP STRENGTH AND ENDURANCE, RANGE OF MOTION AND FLEXIBILITY [facility] THERAPEUTIC PROCEDURE, 1 OR MORE AREAS, EACH 15 MINUTES; THERAPEUTIC EXERCISES TO DEVELOP STRENGTH AND ENDURANCE, RANGE OF MOTION AND FLEXIBILITY [facility] THERAPEUTIC PROCEDURE, 1 OR MORE AREAS, EACH 15 MINUTES; THERAPEUTIC EXERCISES TO DEVELOP STRENGTH AND ENDURANCE, RANGE OF MOTION AND FLEXIBILITY [facility] THERAPEUTIC PROCEDURE, 1 OR MORE AREAS, EACH 15 MINUTES; THERAPEUTIC EXERCISES TO DEVELOP STRENGTH AND ENDURANCE, RANGE OF MOTION AND FLEXIBILITY [facility] THERAPEUTIC PROCEDURE, 1 OR MORE AREAS, EACH 15 MINUTES; THERAPEUTIC EXERCISES TO DEVELOP STRENGTH AND ENDURANCE, RANGE OF MOTION AND FLEXIBILITY DoD THERAPEUTIC PROCEDURE, 1 OR MORE AREAS, EACH 15 MINUTES; THERAPEUTIC EXERCISES TO DEVELOP STRENGTH AND ENDURANCE, RANGE OF MOTION AND FLEXIBILITY [facility] PRESCRIPTION OF OPTICAL AND PHYSICAL CHARACTERISTICS OF [...] AND ENDURANCE, RANGE OF MOTION AND FLEXIBILITY [facility] POSTOPERATIVE FOLLOW-UP VISIT, NORMALLY INCLUDED IN THE SURGICAL PACKAGE, INDICATE THAT EVALUATION & MANAGEMENT SERVICE WAS PERFORMED DURING A POSTOPERATIVE PERIOD REASON RELATED ORIGINAL PROCEDURE [facility] THERAPEUTIC PROCEDURE, 1 OR MORE AREAS, EACH 15 MINUTES; THERAPEUTIC EXERCISES TO DEVELOP STRENGTH AND ENDURANCE, RANGE OF MOTION AND FLEXIBILITY [facility] THERAPEUTIC PROCEDURE, 1 OR MORE AREAS, EACH [...] AND TREATMENT PROGRAM; INTERMEDIATE, ESTABLISHED PATIENT 011 [facility] PRESCRIPTION OF OPTICAL AND PHYSICAL CHARACTERISTICS OF AND FITTING OF CONTACT LENS, WITH MEDICAL SUPERVISION OF ADAPTATION; CORNEAL LENS, BOTH EYES, EXCEPT FOR APHAKIA 011 [facility] DETERMINATION OF REFRACTIVE STATE 011 [facility] DETERMINATION [...] TREATMENT (OMT); 1-2 BODY REGIONS INVOLVED 010 [facility] 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), [...] VEINS (OTHER THAN TELANGIECTASIA), SAME LEG 008 [facility] UNLISTED SPECIAL SERVICE, PROCEDURE OR REPORT 008 [facility] DUPLEX SCAN OF EXTREMITY VEINS INCLUDING RESPONSES TO COMPRESSION AND OTHER MANEUVERS; UNILATERAL OR LIMITED STUDY 008 [facility] SCREENING PAPANICOLAOU SMEAR; OBTAINING, PREPARING AND CONVEYANCE OF CERVICAL OR VAGINAL SMEAR TO LABORATORY 008 [facility] SCREENING PAPANICOLAOU SMEAR; OBTAINING, PREPARING AND CONVEYANCE OF CERVICAL OR VAGINAL SMEAR TO LABORATORY 006 [facility] OTHER BILATERAL LIGATION AND DIVISION OF FALLOPIAN TUBES 006 [facility] LOW CERVICAL SECTION 006 [facility] ANESTHESIA FOR DELIVERY FOLLOWING NEURAXIAL LABOR ANALGESIA/ANESTHESI A (LIST SEPARATELY ADDITION TO CODE FOR PRIMARY PROCEDURE PERFORMED) 006 [facility] HISTORY&PHYSICAL (OUTPATIENT/OFFICE) RELATED SURGICAL PROCEDURE (LIST SEPARATELY ADDITION CD, APPROPRIATE EVAL & MGT SERVICE) [facility] SUBSEQ CARE VISIT () [EXCLS:PATIENTS WHO ARE SEEN FOR A CONDITION UNREL TO / CARE (EG,AN UP RESPIR INFECT;PATIENTS SEEN FOR CONSULTATION ONLY,NOT FOR CONT CARE)] [facility] SUBSEQ CARE VISIT () [EXCLS:PATIENTS WHO ARE SEEN FOR A CONDITION UNREL TO / CARE (EG,AN UP RESPIR INFECT;PATIENTS SEEN FOR CONSULTATION ONLY,NOT FOR CONT CARE)] [facility] SUBSEQ CARE VISIT () [EXCLS:PATIENTS WHO ARE SEEN FOR A CONDITION UNREL TO / CARE (EG,AN UP RESPIR INFECT;PATIENTS SEEN FOR CONSULTATION ONLY,NOT FOR CONT CARE)] [facility] SUBSEQ CARE VISIT () [EXCLS:PATIENTS WHO ARE SEEN FOR A CONDITION UNREL TO / CARE (EG,AN UP RESPIR INFECT;PATIENTS SEEN FOR CONSULTATION ONLY,NOT FOR CONT CARE)] [facility] SUBSEQ CARE VISIT () [EXCLS:PATIENTS WHO ARE SEEN FOR A CONDITION UNREL TO / CARE (EG,AN UP RESPIR INFECT;PATIENTS SEEN FOR CONSULTATION ONLY,NOT FOR CONT CARE)] [facility] ULTRASOUND, UTERUS, REAL TIME WITH IMAGE DOCUMENTATION,TRANS VAGINAL [facility] SUBSEQ CARE VISIT () [EXCLS:PATIENTS WHO ARE SEEN FOR A CONDITION UNREL TO / CARE (EG,AN UP RESPIR INFECT;PATIENTS SEEN FOR CONSULTATION ONLY,NOT FOR CONT CARE)] [facility] ULTRASOUND, UTERUS, REAL TIME WITH IMAGE DOCUMENTATION,TRANS [...] EXTREMITY(IES), AND/OR TRUNK, EACH 15 MINUTES 002 [facility] ORTHOTIC(S) FITTING AND TRAINING, UPPER EXTREMITY(IES), LOWER EXTREMITY(IES), AND/OR TRUNK, EACH 15 MINUTES 002 [facility] DESTRUCTION (EG, LASER SURGERY, ELECTROSURGERY, CRYOSURGERY, CHEMOSURGERY, SURGICAL CURETTEMENT), PREMALIGNANT LESIONS (EG, ACTINIC KERATOSES); FIRST LESION 002 [facility] CERVICAL OR VAGINAL CANCER SCREENING; PELVIC AND CLINICAL BREAST EXAMINATION 001 [facility] Long [facility] Orthopedic Splinting Long Arm 02297 011 NATALIA GUALLPA Compre ion bandage, roll [...] Exercises For ROM Assisted Exercises For ROM 18815 011 NASEEM MARINO Physical Therapy Service Re-Evaluation Physical Therapy Service Re-Evaluation 93557 011 NASEEM MARINO isted Exercises [place] 32248 010 NASEEM MARINO Osteopathic Manip Treatment (OMT) 3-4 Body Regions Involved Osteopathic Manip Treatment (OMT) 3-4 Body Regions Involved 45240 010 NASEEM MARINO Physical Therapy Service Re-Evaluation Physical Therapy Service Re-Evaluation 65825 010 NASEEM MARINO Osteopathic Manip Treatment (OMT) 1-2 Body Regions Involved Osteopathic Manip Treatment (OMT) 1-2 Body Regions Involved 33292 010 NASEEM MARINO isted Exercises For ROM Assisted Exercises For ROM 92534 010 NASEEM MARINO Physical Therapy Service Evaluation Physical Therapy Service Evaluation 22701 010 NASEEM MARINO Sclerosing Telangiectasia Limb / Trunk Sclerosing Telangiectasia Limb / Trunk 75701 010 NATALIA BENNETT Sclerosing Multiple Veins By Injection - One Leg 010 NATALIA BENNETT Sclerosing Telangiectasia Limb / Trunk Sclerosing Telangiectasia Limb / Trunk 62747 010 NATALIA BENNETT Sclerosing Multiple Veins By Injection - One Leg 010 NATALIA BENNETT Physical Therapy: ___ Se ion Segments, 15 Minutes Each Physical Therapy: ___ Session Segments, 15 Minutes Each 86512 009 KAMLESH SMYTH A isted Exercises For ROM Assisted [place]ercises [place] ROM 04607 009 YOLANDA COLINDRES Physical Therapy Service Evaluation Physical Therapy Service Evaluation 89690 009 YOLANDA COLINDRES Sclerosing Multiple Veins By Injection - One Leg 009 NATALIA BENNETT Sclerosing Multiple Veins By Injection - One Leg 008 NATALIA BENNETT Unilateral Doppler Duplex Color-Flow Venous of Extremity Unilateral Doppler Duplex Color-Flow Venous of Extremity 90150 008 NATALIA BENNETT Screening papanicolaou smear; obtaining, preparing and conveyance of cervical or vaginal smear to laboratory 008 MATIAS ANGULO [facility] Obstetrical Services Care Only Obstetrical Services Care Only 16898 006 IGNACIA FRASER Screening papanicolaou smear; obtaining, preparing and conveyance of cervical or vaginal smear to laboratory 006 IGNACIA FRASER OB Services Antepartum Care Only Subsequent Single Visit OB Services Antepartum Care Only Subsequent Single Visit 0502F 006 ZENOBIA KNIGHT [facility] OB Services Antepartum Care Only Subsequent Single Visit OB Services Antepartum Care Only Subsequent Single Visit 0502F 006 RADHA MAHER [facility] Modalities Electrical Stimulation Unattended Modalities Electrical Stimulation Unattended 11218 013 MARIELA ELDER Physical Therapy: ___ Se ion Segments, 15 Minutes Each Physical Therapy: ___ Session Segments, 15 Minutes Each 64853 013 MARIELA ELDER Modalities Electrical Stimulation Unattended Modalities Electrical Stimulation Unattended 03416 013 MARIELA ELDER Physical Therapy: ___ Se ion Segments, 15 Minutes Each Physical Therapy: ___ Session Segments, 15 Minutes Each 97687 013 ELDERLISAH N [facility] Modalities Cryotherapy Cold Packs Modalities Cryotherapy Cold Packs 21151 013 ELDERLISAH N [facility] Modalities Cryotherapy Cold Packs Modalities Cryotherapy Cold Packs [phone] ELDERLISAH N [facility] Physical Therapy: ___ Se ion Segments, 15 Minutes Each Physical Therapy: ___ Session Segments, 15 Minutes Each 38619 013 ELDERLISA MetcalfH N [facility] Modalities Electrical Stimulation Unattended Modalities Electrical Stimulation Unattended 29715 013 ELDERLISAH N [facility] Modalities Cryotherapy Cold Packs Modalities Cryotherapy Cold Packs 59051 013 ELDERLISAH N [facility] Physical Therapy: ___ Se ion Segments, 15 Minutes Each Physical Therapy: ___ Session Segments, 15 Minutes Each 91375 013 LISA ELDERH N [facility] Modalities Electrical Stimulation Unattended Modalities Electrical Stimulation Unattended 86916 013 ELDERLISAH N [facility] Modalities Cryotherapy Cold Packs Modalities Cryotherapy Cold Packs 85093 013 ELDERLISAH N [facility] Modalities Electrical Stimulation Unattended Modalities Electrical Stimulation Unattended 80467 013 EDLERLISAH N [facility] Physical Therapy: ___ Se ion Segments, 15 Minutes Each Physical Therapy: ___ Session Segments, 15 Minutes Each 32231 013 ELDERLISAH N [facility] Modalities Cryotherapy Cold Packs Modalities Cryotherapy Cold Packs 69189 013 ELDERLISAH N [facility] Modalities Electrical Stimulation Unattended Modalities Electrical Stimulation Unattended 92884 ELEDRLISAH N [facility] Physical Therapy: ___ Se ion Segments, 15 Minutes Each Physical Therapy: ___ Session Segments, 15 Minutes Each 76718 013 ELDERLISAH N [facility] Modalities Cryotherapy Cold Packs Modalities Cryotherapy Cold Packs 21952 013 ELDERLISA MetcalfH N [facility] Modalities Electrical Stimulation Unattended Modalities Electrical Stimulation Unattended 52633 MARIELA ELDER [facility] Physical Therapy: ___ Se ion Segments, 15 Minutes Each Physical Therapy: ___ Session Segments, 15 Minutes Each 76837 MARIELA ELDER Physical Therapy Service Evaluation Physical Therapy Service Evaluation 77752 MANDY MERRILL [facility] Postoperative Visit, Without Charge Postoperative Visit, Without Charge 49627 BEAU CULVER Physical Therapy Neuromuscular Re-education Physical Therapy Neuromuscular Re-education 13358 DELMAR NOVAK Modalities Cryotherapy Cold Packs Modalities Cryotherapy Cold Packs 21820 DELMAR NOVAK A isted Exercises For ROM Assisted Exercises For ROM 80141 DELMAR NOVAK Physical Therapy: ___ Se ion Segments, 15 Minutes Each Physical Therapy: ___ Session Segments, 15 Minutes Each 53988 DELMAR NOVAK Case Management, each 15 minutes CAMERON HERNANDEZ Coordinated care fee, maintenance rate CAMERON HERNANDEZ Patient Counseling Medical Management Individual Patient Patient Counseling Medical Management Individual Patient 29745 CAMERON HERNANDEZ Physical Therapy Neuromuscular Re-education Physical Therapy Neuromuscular Re-education 96687 013 JANES العراقي Modalities Cryotherapy Cold Packs Modalities Cryotherapy Cold Packs 47169 JANES العراقي A isted Exercises For ROM Assisted Exercises [place] ROM 24918 JANES العراقي Physical Therapy: ___ Se ion Segments, 15 Minutes Each Physical Therapy: ___ Session Segments, 15 Minutes Each 50046 013 JANES العراقي Physical Therapy Neuromuscular Re-education Physical Therapy Neuromuscular Re-education 74941 DELMAR NOVAK Modalities Cryotherapy Cold Packs Modalities Cryotherapy Cold Packs 78823 DELMAR NOVAK A isted Exercises For ROM Assisted Exercises For ROM 53168 013 DELMAR NOVAK Physical Therapy: ___ Se ion Segments, 15 Minutes Each Physical Therapy: ___ Session Segments, 15 Minutes Each 27810 DELMAR NOVAK Physical Therapy Neuromuscular Re-education Physical Therapy Neuromuscular Re-education 55004 013 JANES العراقي Modalities Cryotherapy Cold Packs Modalities Cryotherapy Cold Packs 74632 JANES العراقي A isted Exercises For ROM Assisted Exercises [place] ROM 76008 013 JANES العراقي Physical Therapy: ___ Se ion Segments, 15 Minutes Each Physical Therapy: ___ Session Segments, 15 Minutes Each 29812 013 JANES العراقي Physical Therapy Neuromuscular Re-education Physical Therapy Neuromuscular Re-education 12729 JANES العراقي Modalities Cryotherapy Cold Packs Modalities Cryotherapy Cold Packs 11560 JANES العراقي A isted Exercises For ROM Assisted Exercises For ROM 02933 JANES العراقي Physical Therapy: ___ Se ion Segments, 15 Minutes Each Physical Therapy: ___ Session Segments, 15 Minutes Each 79235 JANES العراقي Postoperative Visit, Without Charge Postoperative Visit, Without Charge 96001 BEAU CULVER PT A e ment Kinetic Training PT Assessment Kinetic Training 45919 SARAH SEYMOUR Physical Therapy: ___ Se ion Segments, 15 Minutes Each Physical Therapy: ___ Session Segments, 15 Minutes Each 68606 SARAH SEYMOUR Physical Therapy Service Evaluation Physical Therapy Service Evaluation 68013 SARAH SEYMOUR Physical Therapy: ___ Se ion Segments, 15 Minutes Each Physical Therapy: ___ Session Segments, 15 Minutes Each 40799 MARIELA JHA Physical Therapy Gait Training Physical Therapy Gait Training 42108 AQUILINO GALAN PT A e ment Kinetic Training PT Assessment Kinetic Training 08455 AQUILINO GALAN [facility] Patient Training And Self-Care Skills Patient Training And Self-Care Skills 14668 RO ALAN x 25 min DoD Phys Therapy Education Self Care Training - Per 15 Minutes Phys Therapy Education Self Care Training - Per 15 Minutes 36323 EARL GAO total time: 30 min. [facility] Occupational Therapy Evaluation Occupational Therapy Evaluation 69942 EARL GAO total time: 20 min. [facility] PT A e ment Kinetic Training PT Assessment Kinetic Training 62104 SRINIVASANMATHEW [facility] Physical Therapy Service Evaluation Physical Therapy Service Evaluation 14148 DELPHOSMATHEW [facility] Physical Therapy Gait Training Physical Therapy Gait Training 00985 DELPHOS [facility] Traction Pelvic Traction Pelvic 93891 013 MAIK BURNHAM 60# DoD Traction Pelvic Traction Pelvic 43164 013 MAIK BURNHAM 60# DoD Traction Pelvic Traction Pelvic 91773 013 MAIK BURNHAM 60# DoD A isted Exercises For ROM Assisted Exercises For ROM 88547 MAIK BURNHAM DoD Traction Pelvic Traction Pelvic 10072 013 MAIK BURNHAM A isted Exercises For ROM Assisted Exercises For ROM 40217 MAIK BURNHAM DoD Traction Pelvic Traction Pelvic 29246 013 MAIK BURNHAM 55# DoD Traction Pelvic Traction Pelvic 82058 013 ERNESTO [place] DoD Traction Pelvic Traction Pelvic 33139 013 MAIK BURNHAM 45# DoD Traction Pelvic Traction Pelvic 92369 013 MAIK BURNHAM 45# DoD Physical Therapy Service Evaluation Physical Therapy Service Evaluation 17148 MANDY MERRILL Determination Of Refractive State Determination Of Refractive State 82723 ARLYN MARRUFO Prescription And Fitting Bilateral Corneal Lenses (Not For Aphakia) Prescription And Fitting Bilateral Corneal Lenses (Not For Aphakia) 59315 ARLYN MARRUFO Ophthalmological Prior Patient Start Intermediate Level Care Ophthalmological Prior Patient Start Intermediate Level Care 56797 012 ARLYN MARRUFO Determination Of Refractive State Determination Of Refractive State 10615 012 ARLYN MARRUFO Ophthalmological Prior Patient Start Comprehensive Care Ophthalmological Prior Patient Start Comprehensive Care 78001 012 ARLYN MARRUFO Ophthalmological Prior Patient Start Intermediate Level Care Ophthalmological Prior Patient Start Intermediate Level Care 75932 012 ARLYN MARRUFO Ophthalmological Prior Patient Start Intermediate Level Care Ophthalmological Prior Patient Start Intermediate Level Care 26281 011 ARLYN MARRUFO Ophthalmological Prior Patient Start Intermediate Level Care Ophthalmological Prior Patient Start Intermediate Level Care 02821 011 ARLYN MARRUFO Determination Of Refractive State Determination Of Refractive State 99147 011 ARLYN MARRUFO Prescription And Fitting Bilateral Corneal Lenses (Not For Aphakia) Prescription And Fitting Bilateral Corneal Lenses (Not For Aphakia) 26292 011 ARLYN MARRUFO Determination Of Refractive State Determination Of Refractive State 20994 011 ARLYN MARRUFO Ophthalmological Prior Patient Start Intermediate Level Care Ophthalmological Prior Patient Start Intermediate Level Care 12443 011 ARLYN MARRUFO Determination Of Refractive State Determination Of Refractive State 39884 011 ARLYN MARRUFO Ophthalmological Prior Patient Start Intermediate Level Care Ophthalmological Prior Patient Start Intermediate Level Care 82312 011 ARLYN MARRUFO Determination Of Refractive State Determination Of Refractive State 24469 011 MATHEW SELLERS Prescription And Fitting Bilateral Corneal Lenses (Not For Aphakia) Prescription And Fitting Bilateral Corneal Lenses (Not For Aphakia) 92979 011 MATHEW SELLERS Ophthalmological New Patient Start Comprehensive Care Ophthalmological New Patient Start Comprehensive Care 05068 011 MATHEW SELLERS Modalities Cryotherapy Cold Packs Modalities Cryotherapy Cold Packs 47136 011 NATALIA GUALLPA Physical Therapy: ___ Se ion Segments, 15 Minutes Each Physical Therapy: ___ Session Segments, 15 Minutes Each 89870 014 [place], ERNESTO C DoD Physical Therapy: ___ Se ion Segments, 15 Minutes Each Physical Therapy: ___ Session Segments, 15 Minutes Each 74226 014 [place], ERNESTO C DoD Physical Therapy: ___ Se ion Segments, 15 Minutes Each Physical Therapy: ___ Session Segments, 15 Minutes Each 35171 014 [place], ERNESTO C DoD Physical Therapy: ___ Se ion Segments, 15 Minutes Each Physical Therapy: ___ Session Segments, 15 Minutes Each 26299 014 ELDER, MARIELA N Emi Physical Therapy: ___ Se ion Segments, 15 Minutes Each Physical Therapy: ___ Session Segments, 15 Minutes Each 95951 014 ELDER, MARIELA N DoD Ophthalmological Prior Patient Start Comprehensive Care Ophthalmological Prior Patient Start Comprehensive Care 48684 ADEN DUVALL Physical Therapy: ___ Se ion Segments, 15 Minutes Each Physical Therapy: ___ Session Segments, 15 Minutes Each 55799 014 [place], ERNESTO C DoD Physical Therapy: ___ Se ion Segments, 15 Minutes Each Physical Therapy: ___ Session Segments, 15 Minutes Each 52689 014 [place], ERNESTO C DoD Physical Therapy: ___ Se ion Segments, 15 Minutes Each Physical Therapy: ___ Session Segments, 15 Minutes Each 82749 014 ELDER, MARIELA N DoD Physical Therapy: ___ Se ion Segments, 15 Minutes Each Physical Therapy: ___ Session Segments, 15 Minutes Each 26317 014 [place], ERNESTO C DoD Physical Therapy: ___ Se ion Segments, 15 Minutes Each Physical Therapy: ___ Session Segments, 15 Minutes Each 02952 014 ELDER, MARIELA N Emi Physical Therapy: ___ Se ion Segments, 15 Minutes Each Physical Therapy: ___ Session Segments, 15 Minutes Each 19619 014 ELDER, MARIELA N DoD Prescription And Fitting Bilateral Corneal Lenses (Not For Aphakia) Prescription And Fitting Bilateral Corneal Lenses (Not For Aphakia) 50912 ADEN DUVALL Determination Of Refractive State Determination Of Refractive State 83771 04/18/2 ADEN LEYVA Ophthalmological Prior Patient Start Comprehensive Care Ophthalmological Prior Patient Start Comprehensive Care 29534 ADEN DUVALL Physical Therapy: ___ Se ion Segments, 15 Minutes Each Physical Therapy: ___ Session Segments, 15 Minutes Each 56407 014 LISA ELDERH Giovanny [facility] Physical Therapy: ___ Se ion Segments, 15 Minutes Each Physical Therapy: ___ Session Segments, 15 Minutes Each 96223 014 ALEXSANDRA ELDERNETH Giovanny [facility] Physical Therapy: ___ Se ion Segments, 15 Minutes Each Physical Therapy: ___ Session Segments, 15 Minutes Each 60015 014 ALEXSANDRA ELDERNETH Giovanny [facility] Physical Therapy: ___ Se ion Segments, 15 Minutes Each Physical Therapy: ___ Session Segments, 15 Minutes Each 41696 014 ALEXSANDRA ELDERNETH Giovanny [facility] Physical Therapy: ___ Se ion Segments, 15 Minutes Each Physical Therapy: ___ Session Segments, 15 Minutes Each 05049 014 ALEXSANDRA ELDERNETH Giovanny [facility] Physical Therapy: ___ Se ion Segments, 15 Minutes Each Physical Therapy: ___ Session Segments, 15 Minutes Each 96698 014 ALEXSANDRA ELDERNETH Giovanny [facility] Physical Therapy: ___ Se ion Segments, 15 Minutes Each Physical Therapy: ___ Session Segments, 15 Minutes Each 45439 014 ALEXSANDRA ELDERNETH N [facility] Physical Therapy: ___ Se ion Segments, 15 Minutes Each Physical Therapy: ___ Session Segments, 15 Minutes Each 60324 014 ERNESTO [place]MING[place]AM [facility] Physical Therapy: ___ Se ion Segments, 15 Minutes Each Physical Therapy: ___ Session Segments, 15 Minutes Each 22759 014 ALEXSANDRA ELDERNETH Giovanny [facility] Postoperative Visit, Without Charge Postoperative Visit, Without Charge 55820 LISBETH MCDANIELS [facility] Physical Therapy: ___ Se ion Segments, 15 Minutes Each Physical Therapy: ___ Session Segments, 15 Minutes Each 20317 014 ALEXSANDRA EDLERNETH Giovanny [facility] A isted Exercises For ROM Assisted Exercises For ROM 50866 014 ALEXSANDRA ELDERNETH Giovanny [facility] Physical Therapy: ___ Se ion Segments, 15 Minutes Each Physical Therapy: ___ Session Segments, 15 Minutes Each 60101 014 ELDERLISA MetcalfH Giovanny [facility] Modalities Electrical Stimulation Unattended Modalities Electrical Stimulation Unattended 69211 014 ELDERLISA MetcalfH Giovanny [facility] Physical Therapy: ___ Se ion Segments, 15 Minutes Each Physical Therapy: ___ Session Segments, 15 Minutes Each 92029 014 LISA ELDERH Giovanny [facility] Modalities Cryotherapy Cold Packs Modalities Cryotherapy Cold Packs 06556 014 [place], ERNESTO C [facility] Modalities Electrical Stimulation Attended Each 15 Minutes Modalities Electrical Stimulation Attended Each 15 Minutes 94695 014 [place], ERNESTO C [facility] Physical Therapy: ___ Se ion Segments, 15 Minutes Each Physical Therapy: ___ Session Segments, 15 Minutes Each 06165 014 [place], ERNESTO C [facility] Modalities Cryotherapy Cold Packs Modalities Cryotherapy Cold Packs 91951 014 ELDERLISA MetcalfH Giovanny [facility] Physical Therapy: ___ Se ion Segments, 15 Minutes Each Physical Therapy: ___ Session Segments, 15 Minutes Each 33901 014 ELDER, MARIELA Giovanny [facility] Modalities Electrical Stimulation Attended Each 15 Minutes Modalities Electrical Stimulation Attended Each 15 Minutes 16018 014 ELDERLISA MetcalfH Giovanny [facility] Modalities Cryotherapy Cold Packs Modalities Cryotherapy Cold Packs 87548 014 [place], ERNESTO C [facility] Modalities Electrical Stimulation Attended Each 15 Minutes Modalities Electrical Stimulation Attended Each 15 Minutes 70556 014 [place], ERNESTO C [facility] Physical Therapy: ___ Se ion Segments, 15 Minutes Each Physical Therapy: ___ Session Segments, 15 Minutes Each 73786 014 [place], ERNESTO C [facility] Modalities Cryotherapy Cold Packs Modalities Cryotherapy Cold Packs 51544 014 ELDERLISA MetcalfH Giovanny [facility] Physical Therapy: ___ Se ion Segments, 15 Minutes Each Physical Therapy: ___ Session Segments, 15 Minutes Each 42715 014 ELDERLISA MetcalfH Giovanny [facility] Modalities Electrical Stimulation Attended Each 15 Minutes Modalities Electrical Stimulation Attended Each 15 Minutes 50139 014 [facility] Modalities Cryotherapy Cold Packs Modalities Cryotherapy Cold Packs 85099 014 [facility] Modalities Electrical Stimulation Attended Each 15 Minutes Modalities Electrical Stimulation Attended Each 15 Minutes 64220 [facility] Physical Therapy: ___ Se ion Segments, 15 Minutes Each Physical Therapy: ___ Session Segments, 15 Minutes Each 80458 [facility] Modalities Cryotherapy Cold Packs Modalities Cryotherapy Cold Packs 94572 [facility] Modalities Electrical Stimulation Attended Each 15 Minutes Modalities Electrical Stimulation Attended Each 15 Minutes [facility] Physical Therapy: ___ Se ion Segments, 15 Minutes Each Physical Therapy: ___ Session Segments, 15 Minutes Each 90433 [facility] Modalities Cryotherapy Cold Packs Modalities Cryotherapy Cold Packs 09195 014 [place], ERNESTO C [facility] Modalities Electrical Stimulation Attended Each 15 Minutes Modalities Electrical Stimulation Attended Each 15 Minutes 49792 014 [place], ERNESTO C [facility] Physical Therapy: ___ Se ion Segments, 15 Minutes Each Physical Therapy: ___ Session Segments, 15 Minutes Each 13365 014 [place], ERNESTO C [facility] Modalities Cryotherapy Cold Packs Modalities Cryotherapy Cold Packs 52057 014 [place], ERNESTO C [facility] Modalities Electrical Stimulation Attended Each 15 Minutes Modalities Electrical Stimulation Attended Each 15 Minutes 61172 014 [place], ERNESTO C [facility] Physical Therapy: ___ Se ion Segments, 15 Minutes Each Physical Therapy: ___ Session Segments, 15 Minutes Each 89204 014 [place], ERNESTO C DoD Modalities Cryotherapy Cold Packs Modalities Cryotherapy Cold Packs 19752 014 [place], ERNESTO C DoD Modalities Electrical Stimulation Attended Each 15 Minutes Modalities Electrical Stimulation Attended Each 15 Minutes 014 [place], ERNESTO C [facility] Physical Therapy: ___ Se ion Segments, 15 Minutes Each Physical Therapy: ___ Session Segments, 15 Minutes Each 32928 014 [place], ERNESTO C DoD Modalities Cryotherapy Cold Packs Modalities Cryotherapy Cold Packs 65972 [facility] Physical Therapy Gait Training Physical Therapy Gait Training 16815 [facility] Modalities Electrical Stimulation Attended Each 15 Minutes Modalities Electrical Stimulation Attended Each 15 Minutes 20055 [facility] Physical Therapy: ___ Se ion Segments, 15 Minutes Each Physical Therapy: ___ Session Segments, 15 Minutes Each 31753 [facility] Physical Therapy Gait Training Physical Therapy Gait Training 68646 [facility] Modalities Cryotherapy Cold Packs Modalities Cryotherapy Cold Packs 10065 [facility] Modalities Electrical Stimulation Attended Each 15 Minutes Modalities Electrical Stimulation Attended Each 15 Minutes [facility] Physical Therapy: ___ Se ion Segments, 15 Minutes Each Physical Therapy: ___ Session Segments, 15 Minutes Each 71357 [facility] MARIELA Giovanny [facility] Modalities Cryotherapy Cold Packs Modalities Cryotherapy Cold Packs 30710 014 [place], ERNESTO C [facility] Modalities Electrical Stimulation Attended Each 15 Minutes Modalities Electrical Stimulation Attended Each 15 Minutes [place], ERNESTO C [facility] Physical Therapy: ___ Se ion Segments, 15 Minutes Each Physical Therapy: ___ Session Segments, 15 Minutes Each 25429 014 [place], ERNESTO C [facility] Modalities Cryotherapy Cold Packs Modalities Cryotherapy Cold Packs 31966 014 [place], ERNESTO C [facility] Modalities Electrical Stimulation Attended Each 15 Minutes Modalities Electrical Stimulation Attended Each 15 Minutes 014 [place], ERNESTO C [facility] Physical Therapy: ___ Se ion Segments, 15 Minutes Each Physical Therapy: ___ Session Segments, 15 Minutes Each 36119 014 [place], ERNESTO C DoD Modalities Cryotherapy Cold Packs Modalities Cryotherapy Cold Packs 64458 013 [place], ERNESTO C [facility] Modalities Electrical Stimulation Unattended Modalities Electrical Stimulation Unattended 52275 013 [place], ERNESTO C [facility] Physical Therapy: ___ Se ion Segments, 15 Minutes Each Physical Therapy: ___ Session Segments, 15 Minutes Each 67236 013 ERNESTO [place] [facility] Modalities Cryotherapy Cold Packs Modalities Cryotherapy Cold Packs 17200 013 ELDER, MARIELA N [facility] Modalities Electrical Stimulation Unattended Modalities Electrical Stimulation Unattended 64013 [facility], MARIELA N [facility] Physical Therapy: ___ Se ion Segments, 15 Minutes Each Physical Therapy: ___ Session Segments, 15 Minutes Each 36016 013 ELDER, MARIELA N [facility] Modalities Cryotherapy Cold Packs Modalities Cryotherapy Cold Packs 44520 013 ELDER, MARIELA N [facility] Modalities Electrical Stimulation Unattended Modalities Electrical Stimulation Unattended 75573 [facility], MARIELA N [facility] Physical Therapy: ___ Se ion Segments, 15 Minutes Each Physical Therapy: ___ Session Segments, 15 Minutes Each 58496 013 ELDER, MARIELA N [facility] Modalities Cryotherapy Cold Packs Modalities Cryotherapy Cold Packs [phone] [facility], [facility] Modalities Electrical Stimulation Unattended Modalities Electrical Stimulation Unattended 51087 013 [facility], MARIELA N [facility] Physical Therapy: ___ Se ion Segments, 15 Minutes Each Physical Therapy: ___ Session Segments, 15 Minutes Each 78749 013 ELDER, MARIELA N [facility] Modalities Cryotherapy Cold Packs Modalities Cryotherapy Cold Packs 17868 013 ELDER, MARIELA N [facility] Modalities Electrical Stimulation Unattended Modalities Electrical Stimulation Unattended [address] [place] [address], MARIELA N [facility] Physical Therapy: ___ Se ion Segments, 15 Minutes Each Physical Therapy: ___ Session Segments, 15 Minutes Each 99168 013 ELDER, MARIELA N [facility] Modalities Cryotherapy Cold Packs Modalities Cryotherapy Cold Packs [phone] [facility], MARIELA N [facility] No data available for this section Ambulato ry Pharmacy Social History Combined list of available smoking, tobacco, and other social history from [facility] facilities. Social History Type Response Date Comment [facility] e This section is an empty soc [...] at [facility] [employer] [facility] [place] Functional Formoso Measurement (FIM) Scale: 1 = Total Assistance (Subject = 0% +), 2 = Maximal Assistance (Subject = 25% +), 3 = Moderate Assistance (Subject = 50% +), 4 = Minimal Assistance (Subject = 75% +), 5 = Supervision, 6 = Modified Formoso (Device), 7 = Complete Formoso (Timely, Safely). Assessment Date/Time Source Assessment Type Assessment Skill Assessment Score Assessment Details No data available for this section
== END 2024-03-13 12:35 | disposition home or self-care (01) ==
PROVIDERS: Emergency Provider Physician Assistant; PCP Physician Assistant
DX: S09.90XA Unspecified injury of head, initial encounter (principal); W22.8XXA Striking against or struck by other objects, initial encounter; I10 Essential (primary) hypertension
CPT/HCPCS: 70450; 99284; A9270

== ENCOUNTER 2024-03-15 00:38 | Day surgery (SDC) | payer OTHER, SELFPAY ==
[2024-03-08 11:23] VITALS: BMI 24.8
--- NOTE | 2024-03-08 15:06 | PC.NURSE ---
Report to the Outpatient Waiting Room, entrance under the green pavilion located off [facility], at time _0730_ on date _[id number]_. Planned Procedure Time: _0930_.? Time changes happen often and if your time is changed the preop area will call you the afternoon before. - You and your visitor will be asked to self-screen and do not enter if you have any COVID symptoms. Please call surgeon if you need to reschedule. - A mask is optional within the hospital at this time. Patients may have clear liquids (water, carbonated beverages, clear teas, apple juice) until 3 hours prior to surgery with a maximum of 20 ounces. - No food from midnight until time of surgery and no smoking. This includes no chewing gum, candy or mints. Take only the following medications with a SIP of water on the morning of surgery: __Amlodipine____ DO NOT STOP ANY OF YOUR OTHER PRESCRIPTION MEDICATIONS PRIOR TO SURGERY EXCEPT THE FOLLOWING Medications to discontinue per physician ____All vitamins and supplements. Date to take last yrvc__[id number]__ Please no make-up, nail thai, hairspray, perfume, deodorant, or body powder the day of surgery.? No jewelry (including any body piercings) or valuables the day of surgery, leave them at home.? Please take a shower or bath the night before, or the morning of, surgery with an antibacterial soap.? Wear comfortable, loose fitting clothing.? - Jewelry must be removed prior to entering the operating room.? Rings and piercings that are not removed may be cut off. - The hospital will not accept responsibility for valuables.? - Please leave all valuables, including medications, at home the day of surgery. If you are going home after surgery, a licensed lifter/driver must drive you home.? - NO public transportation without another adult if you receive anesthesia. - We recommend that an adult stay with you for 24 hours following discharge. - We also recommend that you do not drive, make important decision, drink alcoholic beverages, or take any drugs that were not prescribed by your health care provider for at least 24 hours after your discharge time. Follow any additional instructions given to you from your surgeon. Telephone instructions given to __Ictzel__and asked if any additional questions and then verbalized understanding. Patient advised to call surgeon office or pre surgery nurse liaison [phone] if any additional questions.
--- NOTE | 2024-03-14 12:32 | P.HP_ITS ---
H&P: HPI History of Present Illness Date/Time: 03/14/24 12:32 Chief Complaint: Left ankle pain Narrative: 58-year-old woman with chronic left ankle pain after playing pickleball last year. MRI shows tear of the peroneal tendons with large cyst. Unrelieved with conservative measures. Presents for operative treatment. Review of Systems Constitutional: Constitutional: Denies fever(s) Eyes: Eyes: Denies blurry vision ENT: Reports Normal hearing present Cardiovascular: Cardiovascular: Denies chest pain and Denies dyspnea Respiratory: Respiratory: Denies dyspnea and Denies wheezing Gastrointestinal: Gastrointestinal: Denies abdominal pain Genitourinary: Genitourinary: Denies urinary urgency Musculoskeletal: Musculoskeletal: Reports as per HPI and Denies numbness Integumentary/Breasts: Skin/Breast: Denies changing lesions and Denies sores Neurologic: Reports Normal hearing present, Denies behavioral changes, Denies confusion, Denies numbness and Denies convulsions Psychiatric: Psychiatric: Denies behavioral changes, Denies confusion and Denies hallucinations Endocrine: Endocrine: Denies heat intolerance Hematologic/Lymphatic: Hematologic/Lymphatic: Denies easy bleeding Allergic/Immunologic: Allergic/Immunologic: Denies wheezing [facility] Past Medical History Medical History (Updated 03/14/24 @ 12:33 by Preston Arias MD) Ankle pain, left Tear of peroneal tendon of left foot Hypertension Surgical History Surgical History History of arthroscopic surgery of elbow July 2020 History of knee surgery nov 2012 Family History Family History Unknown Hypertension Social History Social History Social History: caffeine use Smoking status: Never smoker Alcohol intake: current Alcohol use details: Social drinker only and not on a daily basis Substance use: never Living arrangements: with family Occupation/Education: unemployed Gender identity (if verbalized by the patient): Female Spiritual care concerns: No Meds Home Medications and Allergies Home Medications ?Medication ?Instructions ?Recorded ?Confirmed ?Type clonidine HCl 0.1 mg tablet 0.1 mg PO Q8H PRN Systolic BP over 10/04/21 03/08/24 Rx 180 or Diastolic over 90 #30 tabs amlodipine 5 mg tablet 5 mg PO DAILY 12/15/23 03/08/24 History lisinopril 20 mg tablet 20 mg PO DAILY 12/15/23 03/08/24 History berberine chloride 500 mg capsule 500 mg PO DAILY 03/08/24 03/08/24 History magnesium glycinate 100 mg (as 300 mg PO DAILY 03/08/24 03/08/24 History glycinate) tablet (Mag Glycinate) turmeric 400 mg capsule 400 mg PO DAILY 03/08/24 03/08/24 History Allergies Allergy/AdvReac Type Severity Reaction Status Date / Time No Known Allergies Allergy Verified 03/13/24 10:23 Exam Const: General: No confusion Orientation/consciousness: No confusion HENMT: Head: normal to inspection, normocephalic and atraumatic Eyes: Conjunctivae: conjunctivae normal Sclera: sclerae normal Neck: Neck: supple and nontender Chest: Chest palpation & inspection: normal inspection of the chest Resp: Effort & Inspection: normal respiratory effort and no audible wheezes Cardio: Rate: regular rate Rhythm: regular rhythm : General: Yes deferred Skin: General skin exam: no rashes or lesions noted Neuro: General: No confusion Extrem: General: capillary refill normal Right upper extremity: normal to inspection Left upper extremity: normal to inspection Right lower extremit y: normal to inspection and hip/thigh Details: normal to inspection Left lower extremity: hip/thigh Details: normal to inspection, knee Details: normal to inspection and knee ligament exam normal Details: anterior drawer test normal, valgus stress test normal, varus stress test normal and Sera's test normal, ankle (no calf tenderness) Details: abnormal to inspection, tenderness ( lateral malleolus, peroneals), swelling (moderate lateral ankle), abnormal ROM ( ankle dorsiflexion 0, plantar flexion 40, inversion 15, eversion 5), crepitus Details: at the lateral malleolus and other ( good capillary refill in toes, 2+ DP pulse, light touch sensation intact) and foot Details: normal capillary refill, toes with normal ROM, vascular exam Details: dorsalis pedis pulse present and motor-sensory exam light-touch normal Psych: Affect: normal affect Assessment and Plan Assessment and plan (1) Tear of peroneal tendon of left foot: Code(s): S86.312A - Strain of muscle(s) and tendon(s) of peroneal muscle group at lower leg level, left leg, initial encounter Status: Acute Assessment and Plan: chief complaint left ankle pain and swelling. MRI reviewed with the patient which shows peroneal brevis split tear with large cyst in the intrasubstance portion at the lateral malleolus. Treatment options including operative and non operative treatment, cortisone injection, physical therapy discussed in detail. Questions answered. She would like to proceed with surgery. This is been over a year with problems with daily activity, ambulating and her exercise. Plan Discussed nonoperative and operative treatment options with the patient. Risks and benefits of each as well as alternatives were reviewed. All of the patient's questions were answered. The risks of surgery reviewed including but not limited to: Neurovascular damage, wound complication, infection, blood clot, pulmonary embolus, stroke, myocardial infarction, and anesthetic risks up to and including . Continued pain and possible dysfunction were explained. Specific risks of the procedure including later recurrence of deformity. No guarantees were offered. If hardware used, discussed risk of failure/ breakage and possible need for removal. If complications occur, the patient understands the need for further treatment, possible further surgery. Patient verbalizes understanding and wishes to proceed. PLAN: Left ankle peroneal tendon reconstruction. (2) Ankle pain, left: Qualifiers: Chronicity: acute Qualified Code(s): M25.572 - Pain in left ankle and joints of left foot Code(s): M25.572 - Pain in left ankle and joints of left foot Status: Acute
[2024-03-15] VITALS (9 sets, daily range): BP systolic 103–130; BP diastolic 53–70; PULSE 64–86; RESP 12–20; TEMP 36.6–37.2; O2SAT 98–100
--- NOTE | 2024-03-15 08:06 | WPDHPUPDATE1 ---
History and Physical Update Update Date/Time: 03/15/24 08:06 History and Physical has been reviewed, including an updated exam of the patient. There are NO changes in the patient's condition. Risks, benefits, and alternatives have been discussed and questions answered. Patient agrees to proceed with procedure.
[2024-03-15] MEDS: ACETAMINOPHEN 500 MG TABLET 1000 MG PO (08:21)
[2024-03-15] MEDS: LACTATED RINGERS 1,000 ML 30 ML IV CONT (08:25)
[2024-03-15] MEDS: KETOROLAC 15 MG/ML VIAL (*BKC) IV PUSH (08:28)
--- NOTE | 2024-03-15 08:52 | SUR.PREOP ---
0750-Pt states on 03/10 shelf fell onto right side of head, present to [place] ED, CT scan negative and ERP stated slight concussion. States informed Dr. Arias's staff and okay to proceed w/procedure. 0810-Clint Wilkes and Hugo aware and both state will proceed.
--- NOTE | 2024-03-15 09:52 | WPDANESEPPF ---
Anes - Initial Pre Proc Eval Procedure: Operation Date: 03/15/24 09:30 Proposed Procedures p Left Peroneal Tendon Reconstruction - Preston Arias MD Date/Time: 03/15/24 09:52 Surgeon: Preston Arias MD Pre Op Diagnosis: left peroneal tendon tear Patient Data Age: 58 Gender: F Height: 1.6 m Weight: 61.95 kg Last Vital Signs Temp 98.9 F 03/15/24 07:55 Pulse 77 03/15/24 07:55 Resp 20 03/15/24 07:55 BP 130/70 03/15/24 07:55 Pulse Ox 100 03/15/24 07:55 O2 Del Method Room Air 03/15/24 07:55 Allergies Allergy/AdvReac Type Severity Reaction Status Date / Time No Known Allergies Allergy Verified 03/15/24 07:53 Home Medications ?Medication ?Instructions ?Recorded ?Confirmed ?Type clonidine HCl 0.1 mg tablet 0.1 mg PO Q8H PRN Systolic BP over 10/04/21 03/08/24 Rx 180 or Diastolic over 90 #30 tabs amlodipine 5 mg tablet 5 mg PO DAILY 12/15/23 03/15/24 History lisinopril 20 mg tablet 20 mg PO DAILY 12/15/23 03/15/24 History berberine chloride 500 mg capsule 500 mg PO DAILY 03/08/24 03/15/24 History magnesium glycinate 100 mg (as 300 mg PO DAILY 03/08/24 03/15/24 History glycinate) tablet (Mag Glycinate) turmeric 400 mg capsule 400 mg PO DAILY 03/08/24 03/15/24 History Patient hx anesthesia problems: none Family hx anesthesia problems: none Results Review: All pre-operative results and documents have been reviewed as part of the pre-operative evaluation. [facility] Past Medical History Medical History Ankle pain, left Tear of peroneal tendon of left foot Hypertension Surgical History Surgical History History of arthroscopic surgery of elbow July 2020 History of knee surgery nov 2012 Family History Family History Unknown Hypertension Social History Social History Social History: caffeine use Smoking status: Never smoker Alcohol intake: current Alcohol use details: Social drinker only and not on a daily basis Substance use: never Living arrangements: with family Occupation/Education: unemployed Gender identity (if verbalized by the patient): Female Spiritual care concerns: No Anes - Eval Final PreProcedure Day of Procedure 03/15/24 09:52 Patient weight: normal Heart: regular rate and rhythm Lungs: normal air movement Airway: Mallampati scale and special considerations (Perm retainer. ) Neurological: alert and oriented Last oral intake: >/= 8 hours ASA classification: II Anesthetic plan: proceed Anesthesia type and monitoring: general LMA and standard monitoring Results Review: All pre-operative results and documents have been reviewed as part of the pre-operative evaluation. HTN, CCB taken this am. 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 Of note pt had shelf hit her in the head on Sat, ER visit CT nml. Deemed mild concussion and pt states she feels at baseline in all aspects. Informed Consent: The patient's anesthetic plan and its attendant risks and benefits were discussed with the patient/family/POA. Questions were solicited and answers provided to the satisfaction of the patient/family/POA.
--- NOTE | 2024-03-15 09:55 | W.PM.PROC2 ---
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 MRI shows tear of the peroneus brevis with large cyst formation. Presents for operative treatment. Findings Peroneus brevis split tear with large intramural cyst. Description of Procedure Patient identified in the preoperative holding. Informed consent given. Operative extremity marked. Patient received intravenous antibiotics. Patient brought to the operating room where underwent general anesthetic by anesthesia team. Positioned supine on operating room table. Time-out performed confirming the patient, site of the surgery and the plan. Left ankle prepped draped usual sterile surgical fashion using ChloraPrep skin solution. Foot and Ankle exsanguinated and calf tourniquet inflated to 225 mmHg. Oblique incision made posterior to the lateral malleolus over the peroneal tendons with 15 blade knife. Hemostasis controlled electrocautery. Peroneal tendon sheath identified in the superior peroneal retinaculum incised in line with skin incision with a 15 blade knife. Due to the location of the tear and the cyst the inferior peroneal retinaculum was also released. Large intrasubstance tear of the peroneus brevis with a cyst was noted distal to the lateral malleolus. This was debrided sharply with a 15 blade knife. The degenerative portion of the tendon was debrided and removed. Synovium and inflammatory tissue around the peroneus longus also sharply debrided with 15 blade knife. Peroneal brevis tendon then repaired with 4-0 Monocryl suture. Peroneal tendon sheath and wound then irrigated and ankle taken through range of motion and noted to be stable. Peroneal tendon sheath repaired with 3-0 Monocryl interrupted suture. Wound closed with 2-0 Vicryl interrupted suture and 3-0 Monocryl interrupted suture. Skin closed with 3-0 Monocryl running subcuticular stitch and Steri-Strips. Sterile dressing applied. The patient was then woken from anesthesia, extubated and taken to the recovery room in stable condition. All sponge, needle, instrument counts were correct at the end of the case. Estimated Blood Loss 5 Tourniquet Time Total Tourniquet Time: 30 Drains No Packing No Pathology None sent Complications None Condition Stable Disposition PACU [facility] Billing Surgery - Charge Forward: Surgery Billing ([id number])
[2024-03-15] MEDS: ceFAZolin 2 GM/D5W 50 ML 2 GM/50 ML BAG IVPB (10:04)
[2024-03-15] MEDS: BUPivacaine HCL 0.5% 10 ML AMP 20 ML INFILTRATE (10:35)
--- NOTE | 2024-03-15 10:45 | SUR.OPER ---
Specimen size 1.25 x 1
[2024-03-15] MEDS: fentaNYL CITRATE INJ (*CRX) 100 MCG/2 ML VIAL 25 MCG IV PUSH (11:07)
[2024-03-15] MEDS: oxyCODONE HCL (*CRX) 5 MG TAB IR PO (12:09)
== END 2024-03-15 12:58 | disposition home or self-care (01) ==
PROVIDERS: PCP Physician Assistant; Visit Provider Orthopaedic Surgery
PROC: (CPT 27650; principal; 2024-03-15 09:30)
DX: S86.312A Strain of muscle(s) and tendon(s) of peroneal muscle group at lower leg level, left leg, initial encounter (principal); M67.88 Other specified disorders of synovium and tendon, other site; X58.XXXA Exposure to other specified factors, initial encounter; I10 Essential (primary) hypertension
CPT/HCPCS: 27658; 88305; A9270; J0690; J1885; J2003; J2250; J2405; J2704; J3010; J7120

== ENCOUNTER 2024-04-12 09:06 | Outpatient (CLI) | payer OTHER, SELFPAY ==
--- NOTE | ~2024-04-12 | MM_ITS ---
EXAMINATION: MM screening [facility] w huang HISTORY: Screening TECHNIQUE: Craniocaudal and mediolateral oblique 3-D tomosynthesis images were obtained and synthetic 2-D images were generated. CAD analysis was submitted and interpreted. COMPARISON: 01/06/2022 BREAST PARENCHYMAL COMPOSITION: Not dense: There are scattered areas of fibroglandular density. FINDINGS: There are bilateral breast masses/asymmetries which are stable or diminished in size compar ed with prior examination, consistent with benign findings. No new masses, calcifications or architec tural distortion in either breast to suggest malignancy. IMPRESSION: 1. No mammographic evidence of malignancy. 2. Recommend routine screening mammography in one year. BI-RADS Category 2: Benign finding(s). Reviewed, dictated and finalized at location [] D INCOME MANAGER
--- OUTSIDE RECORDS SUMMARY | 2024-04-12 09:17 | XMS_ITS | Data Portability ---
Author Organization [place] [facility], Main Office Address [address] [place] [address] Assessment Encounter Date Assessment Date Assessment LastModified by Organization Details LastModified Time 02/03/2023 02/03/2023 This note is dictated and transcribed by [employer]. Hand Reamer variances may occur. Despite proofreading, typographical errors may occur. Occasional wrong-word or 'chmbe-r-imff' substitutions may have occurred due to the inherent limitations of voice recording. Read the chart carefully and recognize, using context, where substitutions have occurred. Not available 02/10/2023 11:16:39 06/06/2023 06/06/2023 This note is dictated and transcribed by [employer]. Hand Reamer variances may occur. Despite proofreading, typographical errors may occur. Occasional wrong-word or 'numrf-r-ilzi' substitutions may have occurred due to the inherent limitations of voice recording. Read the chart carefully and recognize, using context, where substitutions have occurred. Not available 06/22/2023 09:07:07 07/11/2023 07/11/2023 This note is dictated and transcribed by [employer]. Hand Reamer variances may occur. Despite proofreading, typographical errors may occur. Occasional wrong-word or 'bsgka-n-eojt' substitutions may have occurred due to the [...] d. Imaging US, ankle 023 02/04/20 23 [facility] ([facility] Sched[facility]), [address] [place], [address], 14:31:13 Medication Orders None recorde d. Patient TargetsNo targets recorded. Patient Instructions Encounter Date Encounter Id Patient Instructions Last Modified By Organization Details Last Modified Time 02/03/2023 [id number] learning about rice (rest, ice, compression, and elevation) Not available 02/03/2023 15:44:49 Reason for Referral None Reported. Results Created Date Observation Date Name Description Value Unit Range Abnormal Flag Note LastModifiedBy Organization Detail LastModifiedTime 01/19/2001/18/2023 XR, ankle , 3 or more view No observ ation record ed. [email or web address] [facility] [address] [place], [address], 03/03/2023 10:47:30 03/07/19 24 03/04/2023 US, ankle [facility] [address] [place] [address] Patien t Name: GUILLERMO GONZALEZ Access ion #: [id number] Sex: F : 1965 9 Locati [...] the [place] es Page 1 of 2 [facility] Patien t Name: GUILLERMO GONZALEZ Access ion #: [id number] Sex: F : 1965 9 Exam [...] 1:28 PM (CT) Page 2 of [address] (Imaging) [address] [place], [address], 03/07/2023 14:45:13 03/07/19 24 03/04/2023 US, ankle No observ ation record ed. [email or web address] [facility] ([facility] Sched[facility]) [address] [place], [address], 03/23/2023 11:17:56 Result Notes None recorded. Problems Name Problem SNOMED Code Status Onset Date Resolution Date Notes Provider Name and Address Organization Details Recorded Time Strain of muscle of right shoulder 7499619140386 9105 Active Not Available [facility] 4 17:21:54 Mass of left breast 1350616311447 9103 Active Not Available [facility] 4 17:21:54 Disorder of knee 243329527 Active Not Available [facility] 4 17:21:54 Mammograph y abnormal 169643935 Active Not Available [facility] 4 17:21:54 Acromiocla vicular joint pain 078853518 Active Not Available [facility] 4 17:21:54 Ganglion of wrist 491987622 Active Not Available [facility] 4 17:21:55 Urinary symptoms 713947892 Active Not Available [facility] 4 17:21:55 Low back pain 452616786 Active Not Available [facility] 4 17:21:55 Hyperthyro idism 89691087 Active Not Available [facility] 4 17:21:55 Sinusitis 41503260 Active Not Available [facility] 4 17:21:55 Hypertensi ve disorder 62438806 Active 2021 Not Available [facility] 4 17:21:55 Allergic rhinitis 64756797 Active Not Available [facility] 4 17:21:55 Otitis media 39140003 Active Not Available [facility] 4 17:21:55 Urinary tract infectious disease 93388166 Active Not Available [facility] 4 17:21:55 Sesamoidit is 11320841 Active 2017 Not Available [facility] 4 17:21:55 Neck pain 38824889 Active Not Available [facility] 4 17:21:55 Fatigue 73909134 Active Not Available [facility] 4 17:21:55 Breast lump 80860137 Active Not Available [facility] 4 17:21:55 Acute sinusitis 87149703 Active 2022 Not Available [facility] 4 17:21:54 Cough 16869471 Active 2022 Not Available [facility] 4 17:21:55 Essential hypertensi on 06636367 Active 2022 AFTER COVID Not Available [facility] 4 17:21:55 Injury of left ankle 4041129664102 9104 Active 2022 Not Available [facility] 4 17:21:54 Pain of toe of right foot 5875675209085 01 Active 2022 Not Available [facility] 4 17:21:55 Headache 95845595 Active 2022 AFTER COVID Not Available [facility] 4 17:21:55 Migraine 40553782 Active 2022 AFTER COVID Not Available [facility] 4 17:21:55 Sprain of left ankle 8261925660365 9105 Active 2022 Not Available [facility] 4 17:21:54 Strain of peroneal tendon 686434989 Active 2023 Not Available [facility] 4 17:21:55 COVID-19 324257497 Active 2023 Not Available [facility] 4 17:21:55 SARS-CoV-2 Active 2023 Not Available [facility] 4 17:21:55 Strain of peroneal tendon 779470417 Active 2023 Prieto Alvarado DPM [address], [address], [place], [address] , [facility] 4 16:18:58 Problem Notes None recorded. Procedures Surgical History Date Name Laterality Status Provider Name and Address Organization Details Recorded Time 4 Joint Injection-Podi atry 6217 completed Prieto Alvarado DPM [address] [facility], [address], [place], [address], [place] [facility] 07/11/2023 16:55:55 6 section completed Lela Persaud [facility] 02/03/2023 15:16:59 9 section completed Lela Persaud [facility] 02/03/2023 15:17:05 procedure on elbow completed Marietta Reid MA [facility] 01/18/2023 10:06:00 Knee Surgery completed Lela Persaud [facility] 02/03/2023 15:16:43 Imaging Results Imaging Date Name Status LastModified by Organiz ation Details LastModified Time 01/18/2023 XR, ankle, 3 or more view completed [email or web address] [facility] [address] [place], [address], 03/03/2023 10:47:30 03/04/2023 US, ankle completed [email or web address] [facility] (Imaging) [address] [place], [address], 03/07/2023 14:45:13 03/04/2023 US, ankle completed [email or web address] [facility] ([facility] Sched[facility]) [address] [place], [address], 03/23/2023 11:17:56 Procedure Notes None recorded. Medical [...] TAKE 1 TABLET BY MOUTH EVERY DAY 2024 active Not Available Not Available Not Avai lable prednisone 20 mg tablet TAKE 2 TABLETS [...] administe red by the provider 12/03 completed [facility]: [id number] [id number] 20 Not Available Not Available [...] administe red by the provider 12/03 completed [facility]: 0409- [id number] 17 Not Available Not Available [...] Updated DateTime 02/03/2023 160.02 cm 23.9 kg/m2 20049.97 g Lela Hung [place] [employer] [facility] 02/03/2023 15:13:28 Date Recorded Heart rate Respiratory rate Oxygen saturation Oxygen saturation in Arterial blood by Pulse oximetry Systolic blood pressure Diastolic blood pressure Provider Name and Address Organization Details Last Updated DateTime 3 83 /min 14 /min 99 % 99 % 147 mm[Hg] 87 mm[Hg] Julissa Agustín [place] [employer] [facility] 3 15:18:29 Date Recorded Body height Body mass index (BMI) Body weight Heart rate Respiratory rate Oxygen saturation Oxygen saturation in Arterial blood by Pulse oximetry Systolic blood pressure Diastolic blood pressure Provider Name and Address Organization Details Last Updated DateTime 4 160.02 cm 23.9 kg/m2 24817.9 7 g 93 /min 14 /min 99 % 99 % 113 mm[Hg] 69 mm[Hg] Julissa Randolph [place] [employer] [facility] 4 09:21:42 Date Recorded Body height Body mass index (BMI) Body weight Heart rate Respiratory rate Oxygen saturation Oxygen saturation in Arterial blood by Pulse oximetry Systolic blood pressure Diastolic blood pressure Provider Name and Address Organization Details Last Updated DateTime 4 160.02 cm 23.9 kg/m2 22706.9 7 g 81 /min 14 /min 99 % 99 % 123 mm[Hg] 80 mm[Hg] Julissa Randolph [place] [employer] [facility] 4 17:07:09 Date Recorded Body height Body mass index (BMI) Body weight Heart rate Respiratory rate Oxygen saturation Oxygen saturation in Arterial blood by Pulse oximetry Systolic blood pressure Diastolic blood pressure Provider Name and Address Organization Details Last Updated DateTime 4 160.02 cm 23.9 kg/m2 79285.9 7 g 77 /min 14 /min 99 % 99 % 116 mm[Hg] 76 mm[Hg] Julissa Agustín [employer] [facility] 4 16:09:12 Date Recorded Body height Body mass index (BMI) Body weight Oxygen saturation Oxygen saturation in Arterial blood by Pulse oximetry Body temperature Respiratory rate Heart rate Systolic blood pressure Diastolic blood pressure Provider Name and Address Organization Details Last Updated DateTime 4 160.02 cm 23.9 kg/m2 06865.9 7 g 99 % 99 % 97.8 [degF] 14 /min 76 /min 116 mm[Hg] 76 mm[Hg] Pinky Sandhu [facility] [employer] [facility] 4 15:40:51 Social History Question Answer Notes LastModified by Organizat ion Details LastModified Time Tobacco Smoking Status Never Smoker Lela Persaud corrie, [facility] [employer] [facility] 02/03/2023 15:16:24 What Is Your Level Of Alcohol Consumption? Occasional [email or web address] Information not available 02/03/2023 What Was The Date Of Your Most Recent Tobacco Screening? 10/28/2020 [id number] Information not available 04/21/2022 Sex: Unknown [...] SNOMED-CT Code Diagnosis ICD10 Code Diagnosis Note [id number] [facility] [address] [place] [address] 06/17/2020 00:00:00 06/17/2020 12:34:13 [id number] [facility] [address] [address] 07/09/2020 00:00:00 07/09/2020 17:07:50 [id number] [facility] [address] [place] [address] 08/12/2020 00:00:00 08/12/2020 12:42:13 [id number] [facility] [address] [place] [address] 08/19/2020 00:00:00 08/19/2020 17:03:36 [id number] [facility] [address] [place] [address] 09/16/2020 00:00:00 09/16/2020 17:42:20 [id number] [facility] [address] [place] [address] 10/28/2020 00:00:00 10/28/2020 10:18:55 [id number] [facility] [place] [address] [place] [address] 12/03/2020 00:00:00 12/03/2020 18:13:45 [id number] [facility] [address] [place] [address] 01/27/2021 00:00:00 01/27/2021 11:16:30 [id number] [facility] [place] [address] [place] [address] 09/25/2021 00:00:00 09/26/2021 13:37:09 [id number] [facility] [place] [address] [place] [address] 10/09/2021 00:00:00 10/09/2021 15:21:01 [id number] [facility] [place] [address] [place] [address] 11/06/2021 00:00:00 11/06/2021 17:37:28 [id number] [facility] [place] [address] [place] [address] 01/04/2022 00:00:00 01/04/2022 13:30:11 [id number] [facility] [place] [address] [facility] [place] [address] 01/29/2022 00:00:00 01/29/2022 17:34:53 [id number] [facility] [place] [address] [facility] [place] [address] 03/15/2022 00:00:00 03/16/2022 08:33:11 [id number] [facility] [place] [address] [facility] [place] [address] 03/18/2022 00:00:00 03/19/2022 08:33:31 [id number] Meryl Cruz MD [facility] [place] [address] [place] [address] [place] [address] 05/31/2022 14:03:28 05/31/2022 14:39:19 Acute sinusitis 69510743 J01.90 Do steam of sinuses. Will start levaquin s/e discussed with pt. Cough 54066549 R05.9 [id number] TYRONE Franco [facility] [place] [address] [place] [address] [place] [address] 01/18/2023 09:57:03 01/18/2023 10:27:56 Pain of toe of right foot 0325188275 25200 M79.674 Injury of left ankle 235 5175109 1739959 S99.912A 4 months [id number] Prieto Alvarado DPM [facility] [place] [address] [place] [address] 02/03/2023 15:09:02 02/17/2023 14:57:53 Sprain of left ankle 4814892020 1713696 S93.402A no strenuous activities rice therapyici instructjuan jose ns reviewedfo llow-up testing [id number] Prieto Alvarado DPM [facility] [place] [address] [place] [address] 03/07/2023 09:14:40 03/08/2023 13:03:28 Sprain of left ankle 5972502603 0490741 S93.402A no strenuous activities ultrasound reviewed- partial tear ATFL, chronicrec ommend lace-up ankle bracerice therapyici instructio ns reviewedfo llow-up 1 week possible physical therapy if not improved Strain of peroneal tendon 945965807 S86.312D ultrasound reviewed- tendinosis peroneal tendonsrec ommend lace-up ankle bracesuppo rtive shoe gear dailyfollo w-up 1 month possible physical therapy [id number] Prieto Alvarado DPM [facility] [place] [address] [place] [address] 04/04/2023 17:00:23 04/11/2023 10:49:41 Sprain of left ankle 4687256040 0308220 S93.402A no strenuous activities ultrasound reviewed- partial tear ATFL, chronicrec ommend lace-up ankle bracerice therapyici instructio fede reviewedfo llow-up after- physical therapy, ordered today [id number] Prieto Alvarado DPM [facility] [place] [address] [place] [address] 06/06/2023 15:58:04 06/22/2023 10:05:33 Sprain of left ankle 7828439152 8645604 S93.402A no strenuous activities ultrasound reviewed- partial tear ATFL, chronicrec ommend lace-up ankle bracerice therapyici instructio fede reviewedFo llow-up 1 month finish physical therapy Strain of peroneal tendon 623659107 S86.312D ultrasound reviewed- tendinosis peroneal tendonsrec ommend lace-up ankle bracesuppo rtive shoe gear dailyfollo w-up 1 month [id number] Prieto Alvarado DPM [facility] [place] [address] [place] [address] 07/11/2023 15:29:05 07/14/2023 12:11:10 Sprain of left ankle 9224913158 1544181 S93.402A no strenuous activities 2 weeksultra sound reviewed- partial tear ATFL, chronicfin ished physical therapy, continue at-homecon tinue lace-up ankle braceand supportive shoe gearfollow -up as needed Strain of peroneal tendon 260235328 S86.312D resolved Health Concerns Section Related Observation LastModified by Organization Detai ls LastModified Time None Recorded Concern Status LastModified by Organization Details LastModified Time None Recorded Advance Directives Directive None Recorded Payers Encounter Date Sequence Insurance Name Policy Number Policy [employer] Covered Member ID Solis Member ID Guarantor Name 02/03/2023 1 [place]AST - DOS PRIOR TO 2024 - [employer] () Angelic Alonzo [id number] Guillermo Torres Alonzo 03/07/2023 1 [place] - DOS PRIOR TO 2024 - [employer] () Angelic Gonzalez [id number] Guillermo Torres Alonzo 04/04/2023 1 [place]AST - DOS PRIOR TO 2024 - [employer] () Angelic Gonzalez [id number] Guillermo Manriqueas 06/06/2023 1 [place]AST - DOS PRIOR TO 2024 - [employer] () Angelic Alonzo [id number] Guillermo Manriqueas 07/11/2023 1 [place]AST - DOS PRIOR TO 2024 - [employer] () Angelic Gonzalez [id number] Wicho[place]bey Torres [place] Notes Date Note Type Note Provider Name [...] any other complaints. Prieto Alvarado, MIKO [address] [facility], [address], [place], [address], [place] [facility] 02/10/2023 11:18:15 03/07/2023 text/html Patient is a [...] lace-up ankle brace and perform at home cufod-ii-kwjvdj exercises which was reviewed and discussed today. Patient will follow-up in 3 weeks and if continues to be problematic we will send to formal physical therapy. Prieto Alvarado DPM [address], [address], [place], [address], [employer] [employer] 03/08/2023 09:39:19 04/04/2023 text/html . Patient is [...] any other complaints. Prieto Alvarado DPM [address], [place], [address], [employer] 04/11/2023 10:41:36 06/06/2023 text/html . Patient is a 58-year-old female who returns the office for follow-up on left ankle sprain of tendinitis. Patient has been undergoing physical therapy is doing a lot better. Patient states she is almost back to 90%. Patient denies any other complaints. Prieto Alvarado DPM [address], [place], [address], [facility] [employer] 06/22/2023 09:07:33 07/11/2023 text/html . Patient is [...] any other complaints. Prieto Alvarado DPM [address] [address], [place], [address], [place] [facility] 07/13/2023 14:05:18 OBGyn Episode No OBEpisode recorded.
--- OUTSIDE RECORDS SUMMARY | 2024-04-12 09:18 | XMS_ITS | Clinical Summary ---
Author Organization [facility] Address [address] [place] [address] Care Team Providers Care Pairer Name Role Phone Meryl Garcia MD Primary Care Provider [phone] Active Problems Problem Noted Date Diagnosed Date Type 2 diabetes mellitus wit hout complication ([facility]) 04/09/2022 Social History Tobacco Use Types Packs/Day Years Used Date Smoking Tobacco: Never Assessed Comments Unknown Sex and Gender Information Value Date Recorded Sex Assigned at Not on file Legal Sex Female 2:37 PM [employer] Gender Identity Not on file Sexual Orientation Not on file Plan of Treatment Health Maintenance Due Date Last Done Comments Cervical Cancer Screening Pa p Smear (Age 30 to 64) Every 3 Years 1964 Colorectal Cancer Screening Colonoscopy (10 Years) 1964 Kidney Health Evaluation 1964 Lipid Panel 1964 Annual Physical 05/02/1967 Pneumococcal Vaccine: Pediatrics (0 to 5 Years) and At-Risk Patients (6 to 64 Years) (1 of 2 - PCV) 1970 Diabetes: Retinopathy Eye Exam 1982 Hepatitis C 1982 DTaP, Tdap and Td Vaccines ( 1 - Tdap) 05/02/1983 Cervical Cancer Screening Pa p with HPV Testing (Age 30 to 64) Every 5 Years 1994 Cervical Cancer Screening wi th HPV 1994 Mammogram Screening 2004 Zoster Vaccines (1 of 2) 2014 Hemoglobin A1C 09/12/2022 03/15/2022 COVID-19 Vaccine (2023-2 5 season) 2023 11/01/2020, 10/09/2020 Influenza Adult (#1) 2023 Meningococcal B Vaccine Aged Out No l onger eligible based on patient's age to complete this topic Meningococcal Vaccine Aged Out No nancy jason eligible based on patient's age to complete this topic RSV Immunizations Under 20 Months Aged Out No longer eligible b ased on patient's age to complete this topic Procedures Procedure Name Priority Date/Time Associated Diagnosis Comments OUTSIDE LAB (SCAN ORDER) Routine 03/15/2022 from Last 3 Months or Most Recently Relevant to Health Maintenance Results * OUTSIDE LAB (SCAN) (03/15/2022) HGB A1C 5.7 % [facility] 03/15/2022 [facility] Scanned SCANNING Final Resu lt [facility] from Last 3 Months or Most Recently Relevant to Health Maintenance [place] [address] Care Teams Pairer Relationship Specialty Start Date End Date Meryl Garcia MD [address] [place] [address] [address] [place] [id number] PCP - General FAMILY PRACTICE 04/09/22
--- OUTSIDE RECORDS SUMMARY | 2024-04-12 09:18 | XMS_ITS | Clinical Summary ---
Author Organization [facility] Address [address] [place] [id number] Care Team Providers Care Water Use Inspector Name Role Phone Meryl Cruz MD Primary Care Provider [phone]- [phone] Allergies No known active allergies Medications fexofenadine (ADONAY ALLERGY) 180 mg tablet take 1 tablet by oral route every day 0 0 01/27/20 16 Active magnesium oxide (MAG-OX) 415 mg (250 mg elemental) tablet take 1 a day 0 0 01/27/20 16 Active Additional Information Patient taking differently: 420 mg, Reported on 05/03/2022 cholecalciferol (VITAMIN D3) 1,000 unit capsule take 1 a day 0 0 01/27/20 16 Active lisinopriL (PRINIVIL,ZESTRIL) 20 mg tablet 04/25/19 23 Active amLODIPine (NORVASC) 5 mg tablet Take 5 mg by mouth daily 04/12/19 23 Active cloNIDine (CATAPRES) 0.1 mg tablet Take 0.1 mg by mouth daily as needed for high blood pressure Active turmeric, bulk, 95 % powder 2 mg Active rizatriptan MANAGER TRADING (MAXALT-MANAGER TRADING) 10 mg disintegrating tabletIndications: Migraine Take 1 tablet (10 mg total) by mouth every 2 (two) hours as needed for migraine May repeat in 2 hours if unresolved. Do not exceed 30 mg in 24 hours. 9 tablet 3 05/04/19 23 Active topiramate (TOPAMAX) 50 mg tablet Take half tablet (25 mg) po twice a day for one week, then one tablet po twice a day 60 tablet 3 05/04/19 23 Active Active Problems Problem Noted Date Diagnosed Date Chronic migraine w/o aura w/ o status migrainosus, not intractable 05/03/2022 Medical History Medical History Date Comments Hx Other Medical otitis media; C omments: [facility] 01/27/2016 - Hx Other Medical sinusitis; Comm ents: [facility] 01/27/2016 - Hx Other Medical allergic rhinit is; Comments: [facility] 01/27/2016 - Hx Other Medical acromioclavicul ar joint pain; Comments: [facility] 01/27/2016 - Hx Other Medical disorder of kne e; Comments: [facility] 01/27/2016 - Hx Other Medical neck pain; Comm ents: [facility] 01/27/2016 - Hx Other Medical low back pain; Comments: [facility] 01/27/2016 - Hx Other Medical ganglion of wri st; Comments: [facility] 01/27/2016 - Other Medical fatigue; Commen ts: [facility] 01/27/2016 - Hx Other Medical strain of muscl e of R shoulder; Comments: [facility] 01/27/2016 - Other Medical L knee surgery; Comments: [facility] 01/27/2016 - Other Medical C section; Comm ents: [facility] 01/27/2016 - Family History Medical History Relation Name Comments Diabetes Mother Diabetes mellit us; Hypertension Mother Hypertension; Hypertension Sister Hypertension; Relation Name Status Comments Mother Sister Social History Tobacco Use Types Packs/Day Years Used Date Smoking Tobacco: Never Tobacco Cessation:Counseling Given: No Alcohol Use Standard Drinks/Week Comments Yes 0 (1 standard drink = 0.6 oz pur e alcohol) Personal Safety Answer Date Recorded Getting School Help Needed Not on file 05/07 Comments Unknown Sex and Gender Information Value Date Recorded Sex Assigned at Not on file 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 Gender Identity Not on file Sexual Orientation Not on file Obstetrics History Last Filed Vital Signs Vital Sign Reading Time Taken Comments Blood Pressure 111/73 05/03/2022 10:50 AM CDT Pulse 85 05/03/2022 10:50 AM CDT Temperature - - Respiratory Rate 18 05/03/2022 10:50 AM CDT Oxygen Saturation 99% 05/03/2022 10:50 AM CDT Inhaled Oxygen Concentration - - Weight 59.4 kg (131 lb) 05/03/2022 10:50 AM CDT Height 160 cm (5' 3 ) 05/03/2022 10:50 AM CDT Body Mass Index 23.21 05/03/2022 10:50 AM CDT Plan of Treatment Health Maintenance Due Date Last Done Comments Breast Cancer Screening-Mammogram 1964 Cervical Cancer Screening 1964 Colon Cancer Screening-Colonoscopy 1964 Depression Screening 1964 Hepatitis C Screening 1964 DTaP/Tdap/Td Vaccine (1 - Tdap) 05/02/1975 Hepatitis B Screening 1982 Regular Well Visit/Exam 18-64 1982 Zoster Vaccine (1 of 2) 2014 Covid-19 Vaccine (3 2023-2 5 season) 2023 11/01/2020, 10/09/2020 Influenza Vaccine (#1) 2023 Pneumococcal vaccine <65 Aged Out No longer eligible based on patient's age to complete this topic Insurance [facility] Care Teams Water Use Inspector Relationship Specialty Start Date End Date Meryl Cruz MD [facility] [place] [address] PCP - General 01/27/16
--- OUTSIDE RECORDS SUMMARY | 2024-04-12 09:18 | XMS_ITS | Referral Summary ---
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
--- OUTSIDE RECORDS SUMMARY | 2024-04-12 09:20 | XMS_ITS | Continuity of Care Document ---
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 prescribed in [facility] one, computer down [facility] esophageal reflux Active Condition Cont Aciphex [facility] Supervision Of Normal Active Condition [...] ORAL, [facility], 1000 ea. BOTTLE Active [id number] 2023 90 Pharmac y Data Transac tion Service Facilit y AMOX TR-POTASSIU M CLAVULANATE (AMOXICILLI N/POTASSIUM CLAV), 875-125 MG, TABLET, ORAL, SANDOZ, 20 ea. BOTTLE Active [id number] 2023 20 Pharmac y Data Transac tion Service Facilit y AMOXICILLIN (AMOXICILLI N), 875MG, TABLET, ORAL, AUROBINDO PHARM, 100 ea. BOTTLE Active [id number] 2023 20 Pharmac y Data Transac tion Service Facilit y DEXAMETHASO NE (dexamethas one), 6 MG, TABLET, ORAL, ALVOGEN INC, 100 ea. BOTTLE Cancele d [id number] : 2023 0 Pharmac y Data Transac tion Service Facilit y LISINOPRIL (lisinopril ), 20 MG, TABLET, ORAL, LUPIN PHARMACEU, 1000 ea. BOTTLE Active [id number] 4 2023 90 Pharmac y Data Transac tion Service Facilit y LISINOPRIL (lisinopril ), 20 MG, TABLET, ORAL, LUPIN PHARMACEU, 1000 ea. BOTTLE Active [id number] : 2023 90 Pharmac y Data Transac tion Service Facilit y PAXLOVID (EUA) (nirmatrelv ir/ritonavi r), 300-100 MG, TAB DS PK, ORAL, PFIZER LABS., 30 ea. BLIST PACK Active [id number] 2023 30 Pharmac y Data Transac [...] Site Reaction Lot Number CVX Code Drug Electronic Operator Status Comments Source COVID Vaccine Jackrabbit 2020 208 PFIZER complet ed COVID Vaccine Pfizer 11/01/20 Given Ambulat ory Pharmac y COVID-19, mRNA, LNP-S, PF, 30 mcg/0.3 mL dose 2020 J[facility]ONY [employer] [place] (PFR) Not Given COVID-19, mRNA, LNP-S, PF, 30 mcg/0.3 mL dose DoD COVID Vaccine Pfizer 2020 208 PFIZER complet ed COVID Vaccine Pfizer 10/09/20 Given Ambulat ory Pharmac y COVID-19, mRNA, LNP-S, PF, 30 mcg/0.3 mL dose 2020 JHONY [employer] [place] (PFR) Not Given COVID-19, mRNA, LNP-S, [...] vaccine DoD HepB, Adult [facility] [id number] 8AA 43 GlaxoSmithKli ne complet ed HepB, Adult 08/04/10 Given Ambulat ory Pharmac y hepatitis B vaccine, adult dosage 3 2010 Unknown, Provider [id number] 8AA 43 SmithKline (SKB) complet ed hepatitis B vaccine, adult dosage DoD tetanus, diphtheria, acellular pertu is 2009 [facility] Arm [id number] 2AA 115 GlaxoSmithKli ne complet ed tetanus, [...] is vaccine, adsorbed 1 2009 Unknown, Provider [id number] 2AA 115 SmithKline (SKB) complet ed tetanus [...] vaccine, whole virus 2003 zzLef t Arm [id number] Novartis Pharmaceutica ls complet ed influenza virus vaccine, whole virus 02/25/03 Given Ambulat ory Pharmac y influenza virus vaccine, whole virus 1 2003 Unknown, Provider [id number] [employer] ls (PWJ) complet ed influenza virus vaccine, whole virus DoD tuberculin purified protein derivative 2000 zzLef t Arm [id number] [facility] complet ed Patient Tolerance : Negative [...] derivative solution, intradermal 1 2000 Unknown, Provider [id number] [employer] (CON) complet ed tuberculi n skin test; purified protein derivativ e solution, intraderm al DoD Encounters Combined list of: 1) Encounters from [facility] of Veterans Affairs facilities going backup to the last 18 months, not all VA inpatient encounters are included; 2) Encounters from 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 Location Location Details Encounter Type Encounter Number Reason For Visit Attending Provider ADM Date DC Date Status Disposition Source [facility](Obs tetrics EG) OUTPATIENT [id number] 33week cob RADHA MAHER 07/21 Released w/o Limitations [facility](O bstetri cs EG) [facility](Obs tetrics EG) OUTPATIENT [id number] ZENOBIA KNIGHT 08/05 Released w/o Limitations [facility](O bstetri cs EG) [facility](Obs tetrics EG) OUTPATIENT [id number] 37 wks CARA TAVIA ALCANTARVERITO Margarita 08/17 Released w/o Limitations [facility](O bstetri cs EG) [facility](Obs tetrics EG) OUTPATIENT [id number] c-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 ing CARA ANGELO ALCANTAR 08/25 Released w/o Limitations [facility](O bstetri cs EG) [facility] DIRECT TO [facility] FROM OTHER THAN ER OR [facility] [id number] CARA TAVIA ALCANTARVERITO Margarita 09/03 DISCHARGED HOME [facility](Ob Clinic Contracto r) OUTPATIENT [id number] 6 week PP JCS IGNACIA FRASER 10/14 Released w/o Limitations [facility](O b Clinic Contrac tor) [facility](Electrician Apprentice Powerhouse [facility]-Co ntractor) TELE CONSULT [id number] WK RELEASE IGNACIA FRASER 11/12 [facility](G yn Clinic- Contrac tor) [facility](Dianna jac[facility]) TELE CONSULT [id number] poss UTI MATIAS ANGULO 02/03 [facility](P rim[facility]land [facility]) [facility](Fam isabel Medicine Residency ) TELE CONSULT [id number] INFORMATION TECHNOLOGY ASSOCIATE JUANY DIXON 02/02 NASEEM PAYNE 02/03 [facility](F amily Medicin e Residen ) [facility](Obs tetrics EG) TELE CONSULT [id number] Pt. returni ng your call. LENORA GLOVER 03/21 [facility](O bstetri cs EG) [facility](Electrician Apprentice Powerhouse ecology EG) OUTPATIENT [id number] LUCILA Agee 04/05 Released w/o Limitations [facility](G ynecolo gy EG) [facility] [place]is SHE[facility]lectrician Apprentice Powerhouse ecology[place] OUTPATIENT [id number] walk in uti clinic\ RAYAJ LUIS 01/20 Released w/o Limitations [facility] Alexis SHEARER [place]G y[place]o gy[place] [facility](Fam isabel [facility] Cl Eg) TELE CONSULT [id number] Mammo Referra l and BCP DELANEYPAOLA PEREZ F 03/06 [facility](F amily Health [facility] Cl Eg) [facility](Fam isabel [facility] Cl Eg) OUTPATIENT [id number] WWE. MATIAS ANGULO N 04/03 Released w/o Limitations [facility](F amily [facility] Cl Eg) [facility](Fam isabel [facility] Cl Eg) TELE CONSULT [id number] needs hcg akiko YAHAIRACOCO PAOLA Ashby 04/24 [facility](F amily [facility] Cl Eg) [facility](Fam isabel [facility] Cl Eg) TELE CONSULT [id number] HCG results PAOLA SILVEIRA F 04/26 [facility](F amily [facility] Cl Eg) [facility](Fam isabel [facility] Cl Eg) OUTPATIENT [id number] f/u US results per PCM request MATIAS ANGULO N 05/16 Released w/o Limitations [facility](F amily [facility] Cl Eg) [facility](Per ipheral Vascular Surgery Cl) OUTPATIENT [id number] VARICOS E VEINS NATALIA BENNETT 05/24 Released w/o Limitations [facility](P eripher al Vascula r Surgery Cl) [facility](Fam is[facility] Cl Eg) TELE CONSULT [id number] RAOUL PAOLA Ashby 06/08 [facility](F amily [facility] Cl Eg) [facility](Per ipheral Vascular Surgery Cl) OUTPATIENT [id number] US Doppler NATALIA BENNETT 08/22 Released w/o Limitations [facility](P eripher al Vascula r Surgery Cl) [facility](Per ipheral Vascular Surgery Cl) OUTPATIENT [id number] preop NATALIA BENNETT 10/30 Released w/o Limitations [facility](P eripher al Vascula r Surgery Cl) [facility](Per ipheral Vascular Surgery Cl) OUTPATIENT [id number] f/u right vnus NATALIA BENNETT 11/28 Released w/o Limitations [facility](P eripher al Vascula r Surgery Cl) [facility](Per ipheral Vascular Surgery Cl) OUTPATIENT [id number] sclerot herapy NATALIA BENNETT 12/28 Released w/o Limitations [facility](P eripher al Vascula r Surgery Cl) [facility](Fam [facility] Eg) TELE CONSULT [id number] Rx Refills MATIAS ANGULO 04/11 [facility](F am[facility] Cl Eg) [facility](Fam [facility] Eg) OUTPATIENT [id number] Annual pap.... CC MATIAS ANGULO N 05/08 Released w/o Limitations [facility](F am[facility] Cl Eg) [facility](Fam [facility] Cl Eg) TELE CONSULT [id number] SHANNON TAPIA 05/09 [facility](F am[facility] Cl Eg) [facility](Per ipheral Vascular Surgery Cl) OUTPATIENT [id number] zoraidao NATALIA BENNETT 05/10 Released w/o Limitations [employer] [facility](P eripher al Vascula r Surgery Cl) [facility](Fam [facility] Cl Eg) OUTPATIENT [id number] f/u labs... jlm MATISA ANGULO N 06/17 Released w/o Limitations [facility](F amily [facility] Cl Eg) [employer] [facility](Ort hopedic EG) OUTPATIENT [id number] OSTEOCH ONDRITI S DISSECA DIANE TOURE 07/09 Released w/o Limitations [facility](O rthoped ic EG) [facility](Ort hopedic EG) OUTPATIENT [id number] LEFT KNEE PAIN PER EDITH HIGGINS 07/12 Released w/o Limitations [facility](O rthoped ic EG) [facility](Phy sical Therapy 0024) OUTPATIENT [id number] joint pain, localiz ed in the knee YOLANDA COLINDRES Margarita 07/24 Released w/o Limitations [facility](P hysical Therapy 0024) [facility](Phy sical Therapy 0024) OUTPATIENT [id number] KAMLESH SMYTH 07/29 Released w/o Limitations [facility](P hysical Therapy 0024) [facility] is[facility] Cl Eg) OUTPATIENT [id number] WWE/PAP ..BES RODO PHAM 04/01 Released w/o Limitations [facility](F amily [facility] Cl Eg) [facility](Per ipheral Vascular Surgery Cl) OUTPATIENT [id number] JEEVAN BENNETT NATALIA Margarita 04/11 Released w/o Limitations [facility](P eripher al Vascula r Surgery Cl) [facility] isabel Advocacy- Count) OUTPATIENT [id number] oversea s WILY Ellison 07/02 Released w/o Limitations [facility](F amily Advocac y-Count ) [facility] is[facility] Cl Eg) OUTPATIENT [id number] back pain BOB WILLIS 07/24 Released w/o Limitations [facility](F am[facility] Cl Eg) [facility](Per ipheral Vascular Surgery Cl) OUTPATIENT [id number] NATALIA Ye Margarita 10/02 Released w/o Limitations [facility](P eripher al Vascula r Surgery Cl) [employer] [facility]) OUTPATIENT [id number] Poss UTI NASEEM MARIANO 11/01 Released w/o Limitations [facility](U rgent Care Clinic) [facility] OUTPAT[facility] [id number] discuss back issues/ control from prev base MARIELA GONZALEZ 12/28 Released w/o Limitations [facility](F amily Practic e Clinic) [facility](Phy sical Therapy) OUTPATIENT [id number] Lumbago NASEEM MARINO 01/12 Released w/o Limitations [facility](P hysical Therapy ) [facility](Phy sical Therapy) OUTPATIENT [id number] f/u for back BRAZEAU, NASEEM L 01/27 Released w/o Limitations [facility](P hysical Therapy ) [facility]) TELE CONSULT [id number] MARIELA GONZALEZ Tara 02/04 [facility](F amily Practic e Clinic) [facility](Phy sical Therapy) OUTPATIENT [id number] f/u back NASEEM MARINO 03/10 Released w/o Limitations [facility](P hysical Therapy ) [employer] [facility]) OUTPATIENT [id number] sore throat, red spots in mouth MARIELA GONZALEZ Tara 03/22 Released w/o Limitations [facility](F amily Practic e Clinic) [facility]) OUTPATIENT [id number] fell on ice NATALIA GUALLPA 03/30 Released w/o Limitations [facility](U rgent Care Clinic) [facility](Ort hopedic Clinic) OUTPATIENT [id number] closed fractur e head of the radius POLYADEN 04/07 Released with Work/Duty Limitations [facility](O rthoped ic Clinic) [facility](Ort hopedic Clinic) OUTPATIENT [id number] f/u range of motion and L elbow POLYADEN 04/19 Released with Work/Duty Limitations [facility](O rthoped ic Clinic) [facility](Ort hopedic Clinic) OUTPATIENT [id number] POLYADEN 05/18 Released with Work/Duty Limitations [facility](O rthoped ic Clinic) [facility](Ort hopedic Clinic) OUTPATIENT [id number] f/u for L elbow POLYADEN 06/10 Released with Work/Duty Limitations [facility](O rthoped ic Clinic) [facility](Opt ometry Clinic) OUTPATIENT [id number] eye exam, pt wears glasses and contact s MATHEW SELLERS 07/14 Released w/o Limitations [facility](O ptometr y Clinic) [facility]) TELE CONSULT [id number] Allergy issues/ Medicat ion/Lab s JOSEFINA LOW NIKKY 07/23 Released to Self Care [facility](F amily Practic e Clinic) [facility]) OUTPATIENT [id number] poss sinus infecti on BLANK WRIGHT 08/20 Released w/o Limitations [facility](F amily Practic e Clinic) [facility](Urg ent Care Clinic) OUTPATIENT [id number] Eye irritat ion NASEEM MARIANO 10/11 Released w/o Limitations [facility](U rgent Care Clinic) [facility](Opt ometry Clinic) OUTPATIENT [id number] Eye irritat ion while using CL ARLYN MARRUFO E 12/22 Released w/o Limitations [facility](O ptometr y Clinic) [facility](Opt ometry Clinic) OUTPATIENT [id number] F/U showtim e 1530 ARLYN MARRUFO E 01/13 Released w/o Limitations [facility](O ptometr y Clinic) [facility](Opt ometry Clinic) OUTPATIENT [id number] Pt here for cl's eval OU ARLYN MARRUFO E 01/22 Released w/o Limitations [facility](O ptometr y Clinic) [facility](Opt ometry Clinic) OUTPATIENT [id number] CL f/u ARLYN MARRUFO E 02/18 Released w/o Limitations [facility](O ptometr y Clinic) [facility](Opt ometry Clinic) OUTPATIENT [id number] Cl f/u ARLYN MARRUFO E 02/25 Released w/o Limitations [facility] [employer] [facility](O ptometr y Clinic) [employer]([facility] Team B) OUTPATIENT [id number] vomitin g ,fever and congeti ons NATALIA KINSEY 03/11 Released w/o Limitations [facility] [employer]([facility] Team B) [facility] Team A) OUTPATIENT [id number] no menstru al for 6 mnths AQUILINO BEARDEN 05/16 Released w/o Limitations [employer]([facility] Team A) [facility](Opt ometry Clinic) OUTPATIENT [id number] REE F/u ARLYN MARRUFO E 10/17 Released w/o Limitations [facility](O ptometr y Clinic) [facility](Int ernal Medicine Clinic) OUTPATIENT [id number] f/u labs 15m EVON CHRISTOPHER 10/30 Released w/o Limitations [facility](I nternal Medicin e Clinic) [facility](Opt ometry Clinic) OUTPATIENT [id number] F/u for contact lens MARRUFOARLYN Curran E 12/12 Released w/o Limitations [facility](O ptometr y Clinic) [facility](Int ernal Medicine Clinic) OUTPATIENT [id number] F/U MEDS 15M EVON CHRISTOPHER 12/14 Released w/o Limitations [facility](I nternal Medicin e Clinic) [facility](Opt ometry Clinic) OUTPATIENT [id number] f/u for contact lens fitting ARLYN MARRUFO 01/10 Released w/o Limitations [facility](O ptometr y Clinic) [facility] [employer]([facility] Team B) OUTPATIENT [id number] knee pain ROMAN LEMA 01/30 Released w/o Limitations [facility] [employer]([facility] Team B) [facility] [employer]([facility] Team A) TELE CONSULT [id number] Notes Entered by: ALEX LEMA 09 Feb 2012 1544 ------- ------- ------- ------- -- Mri request ROMAN LEMA 02/08 [employer] [facility] Team A) [facility] OUT[facility] [id number] joint pain, localiz ed in the lt knee ALEXIA BRYANT 03/23 Released w/o Limitations [facility](O rthoped ic Clinic) [facility](Int ernal Medicine Clinic) OUTPATIENT [id number] f/u meds/ba ck pain EVON CHRISTOPHER 04/03 Released w/o Limitations [facility](I nternal Medicin e Clinic) [employer] [facility](Ort hopedic Clinic) OUTPATIENT [id number] lt knee,PA LISBETH Marino 04/18 Released w/o Limitations [facility](O rthoped ic Clinic) [facility](Phy sical Therapy) OUTPATIENT [id number] lumbago with lle radicul opathy, trial therapy /tens unit MANDY MERRILL Magdy 04/24 Released w/o Limitations [facility](P hysical Therapy ) [facility](Phy sical Therapy) OUTPATIENT [id number] MAIK Nicholas 04/28 Released w/o Limitations [facility](P hysical Therapy ) [facility](Phy sical Therapy) OUTPATIENT [id number] lower back MAIK BURNHAM 05/14 Released w/o Limitations [facility](P hysical Therapy ) [facility](Phy sical Therapy) OUTPATIENT [id number] lower back BIRMINGHAMERNESTO 05/17 Released w/o Limitations [facility](P hysical Therapy ) [facility](Phy sical Therapy) OUTPATIENT [id number] lower back MAIK BURNHAM 05/22 Released w/o Limitations [facility](P hysical Therapy ) [facility](Phy sical Therapy) OUTPATIENT [id number] lower back MAIK BURNHAM 05/24 Released w/o Limitations [facility](P hysical Therapy ) [facility](Phy sical Therapy) OUTPATIENT [id number] MAIK BURNHAM 06/08 Released w/o Limitations [facility](P hysical Therapy ) [facility](Phy sical Therapy) OUTPATIENT [id number] MAIK BURNHAM 06/12 Released w/o Limitations [facility](P hysical Therapy ) [facility](Phy sical Therapy) OUTPATIENT [id number] MAIK Nicholas 06/14 Released w/o Limitations [facility](P hysical Therapy ) [employer] [facility](Haydee garcia [facility] Team B) OUTPATIENT [id number] FAUSTINO LIZARRAGA 06/29 Released w/o Limitations [employer]([facility] Team B) [place]) OUT[place]IENT [id number] eval on left knee ANTOINE JUSTICE R 09/29 Released w/o Limitations [facility] [employer] [facility] Team B) OUTPATIENT [id number] checkup FAUSTINO CLARK 11/07 Released w/o Limitations [employer](M [facility] Team B) [facility](Ort hopedic Clinic) OUTPATIENT [id number] left knee pain f/u LISBETH MCDANIELS 11/21 Released w/o Limitations [facility](O rthoped ic Clinic) [facility] [id number] DOS 30OCT RESHMA LEFT KNEE OCA TRANSPL ANT RESHMA ANTOINE R 12/18 Released w/o Limitations [facility] [facility] [place] DIRECT TO [facility] FROM OTHER THAN ER OR [facility] [id number] ANTOINE JUSTICE R 12/19 DISCHARGED HOME [facility] [place]Phys[place] INPATIENT [id number] Notes Entered by: MATHEW MATTSON 21 Dec 2012 1013 ------- ------- ------- ------- -- Inpt PT MATHEW MATTSON 12/21 Inpatient- Still a Patient [facility] INPATIENT [id number] Notes Entered by: CASTILLO CHOI 21 Dec 2012 1207 ------- ------- ------- ------- -- Fritz stauffer OKatelin EvaluEARL Campbell 12/21 Inpatient- Still a [place] [facility] [facility] IN[place] [id number] RO ALAN 12/22 Inpatient- Still a Patient [facility] [facility] IN[place] [id number] Notes Entered by: Seymour JULESFran N 22 Dec 2012 1510 ------- ------- ------- ------- -- Inpt PT ANDREA ROCHA TRAVIS N 12/23 Inpatient- Still a [place] [facility] [facility] IN[place] [id number] Notes Entered by: Tara GALAN 23 Dec 2012 1114 ------- ------- ------- ------- -- inpt PT AQUILINO GALAN 12/23 Inpatient- Still a [place] INPATIENT [id number] Notes Entered by: ASHER BAIRES 24 Dec 2012 1255 ------- ------- ------- ------- -- Inpatie nt physica l therapy MARIELA JHA 12/24 Inpatient- Still a Patient [facility] Case Manag[place]) OUTPATIENT [id number] Notes Entered by: TIM HERNANDEZ 24 Dec 2012 1907 ------- ------- ------- ------- -- Case Managem ent CAMERON HERNANDEZ 12/25 Released w/o Limitations [place] [facility] [id number] s/p L/K OCA A/E dos Nov ANTOINE JUSTICE 12/26 Released w/o Limitations [facility] [id number] LEFT knee OCA transpl ant, air evac from SARAH Borjas 12/27 Released w/o Limitations [facility] OUTPATIENT [id number] i treatme nt per LT. DELMAR NOVAK B 12/27 [place]ased [place] Limitations [facility] [facility] [id number] treatme nt JANES العراقي 12/28 [place]ased [place] Limitations [facility] [facility] [id number] treatme nt JANES العراقي 12/29 [place] [facility] [facility] [id number] treatme nt DELMAR NOVAK B 01/02 Released w/o Limitations [facility] [facility] [id number] treatme nt\ DELMAR NOVAK 01/03 Released w/o Limitations [facility] [facility] [id number] treatme nt JANES العراقي 01/04 Released w/o Limitations [facility] [facility] [id number] Notes Entered by: TIM HERNANDEZ 04 Jan 2013 1615 ------- ------- ------- ------- -- Case Managem ent CAMERON HERNANDEZ 01/05 Released w/o Limitations [facility] [facility] [id number] f/u on left knee ANTOINE JUSTICE R 01/05 [place]ased [place] [facility] [facility] [id number] treatme nt DELMAR NOVAK 01/05 Released w/o Limitations [facility] [employer] [facility] [employer]([facility] e Managemen t Services) TELE CONSULT [id number] Notes Entered by: MARGO CEJA A 10 Jan 2013 0904 ------- ------- ------- ------- -- Follow up AE/Dicke r jayjayi ty rpr MARGO CEJA Tea 01/10 Referred for Appointment [facility](C ase Managem ent Service s) [facility](Ort hopedic Clinic) OUTPATIENT [id number] post op lt knee HARLEY CONTRERAS Margarita 01/10 Released with Work/Duty Limitations [facility](O rthoped ic Clinic) [employer](Phy sical Therapy) OUTPATIENT [id number] post op lt knee DESIRAE MANDY S 01/11 Released w/o Limitations [employer] [facility](P hysical Therapy ) [employer] [facility](Phy sical Therapy) OUTPATIENT [id number] post op lt knee MARIELA ELDER N 01/16 Released w/o Limitations [facility](P hysical Therapy ) [facility](Phy sical Therapy) OUTPATIENT [id number] post op lt knee MARIELA ELDER N 01/22 Released w/o Limitations [facility](P hysical Therapy ) [facility](Phy sical Therapy) OUTPATIENT [id number] post op lt knee MARIELA ELDER N 01/24 Released w/o Limitations [facility](P hysical Therapy ) [facility](Phy sical Therapy) OUTPATIENT [id number] post op lt knee MARIELA ELDER N 01/26 Released w/o Limitations [facility](P hysical Therapy ) [facility](Phy sical Therapy) OUTPATIENT [id number] post op lt knee MARIELA ELDER N 01/28 Released w/o Limitations [facility](P hysical Therapy ) [employer](Phy sical Therapy) OUTPATIENT [id number] post op lt knee MARIELA ELDER N 01/31 Released w/o Limitations [employer](P hysical Therapy ) [employer](Phy sical Therapy) OUTPATIENT [id number] post op lt knee MARIELA ELDER N 02/02 Released w/o Limitations [employer](P hysical Therapy ) [employer](Phy sical Therapy) OUTPATIENT [id number] post op lt knee MARIELA ELDER N 02/04 Released w/o Limitations [employer](P hysical Therapy ) [employer](Ort hopedic Clinic) OUTPATIENT [id number] post op lt knee HARLEY CONTRERAS L 02/06 Released with Work/Duty Limitations [employer](O rthoped ic Clinic) [employer](Phy sical Therapy) OUTPATIENT [id number] post op lt knee MARIELA ELDER N 02/07 Released w/o Limitations [employer](P hysical Therapy ) [employer](Phy sical Therapy) OUTPATIENT [id number] Afterca re Followi ng Surgery Of Musculo skeleta l MANDY Cummings 02/09 Released w/o Limitations [employer](P hysical Therapy ) [employer](Phy sical Therapy) OUTPATIENT [id number] MARIELA ELDER N 02/13 Released w/o Limitations [employer](P hysical Therapy ) [employer](Phy sical Therapy) OUTPATIENT [id number] MARIELA ELDER N 02/16 Released w/o Limitations [employer](P hysical Therapy ) [employer](Phy sical Therapy) OUTPATIENT [id number] ERNESTO BIRMINGHAM 02/20 Released w/o Limitations [employer](P hysical Therapy ) [employer](Phy sical Therapy) OUTPATIENT [id number] ERNESTO BIRMINGHAM 02/23 Released w/o Limitations [employer](P hysical Therapy ) [employer](Phy sical Therapy) OUTPATIENT [id number] ERNESTO BIRMINGHAM 03/01 Released w/o Limitations [employer](P hysical Therapy ) [employer](Phy sical Therapy) OUTPATIENT [id number] MARIELA ELDER N 03/04 Released w/o Limitations [employer](P hysical Therapy ) [employer]([facility]rt hopedic Clinic) OUTPATIENT [id number] F/U post op lt knee HARLEY CONTRERAS 03/06 Released with Work/Duty Limitations [employer](O [facility]thoped ic Clinic) [employer](Int ernal Medicine Clinic) TELE CONSULT [id number] Notes Entered by: Magdy SMITH 07 Mar 2013 1104 ------- ------- ------- ------- -- med refill calcium w/ vit D EUGENE BRAND 03/07 Released to [facility] [employer](I nternal Medicin e Clinic) [employer](Phy sical Therapy) OUTPATIENT [id number] MARIELA ELDER N 03/07 Released w/o Limitations [employer](P hysical Therapy ) [employer](Phy sical Therapy) OUTPATIENT [id number] lt knee MANDY MERRILL 03/09 Released w/o Limitations [employer](P hysical Therapy ) [employer](Phy sical Therapy) OUTPATIENT [id number] lt knee ERNESTO BIRMINGHAM 03/14 Released w/o Limitations [employer](P hysical Therapy ) [employer](Phy sical Therapy) OUTPATIENT [id number] lt knee ERNESTO BIRMINGHAM 03/16 Released w/o Limitations [employer](P hysical Therapy ) [employer](Phy sical Therapy) OUTPATIENT [id number] ERNESTO BIRMINGHAM 03/23 Released w/o Limitations [employer](P hysical Therapy ) [employer](Phy sical Therapy) OUTPATIENT [id number] lt knee JAEL MARIELA N 03/28 Released w/o Limitations [employer](P hysical Therapy ) [employer](Phy sical Therapy) OUTPATIENT [id number] lt knee JAEL MARIELA N 03/30 Released w/o Limitations [employer](P hysical Therapy ) [employer](Phy sical Therapy) OUTPATIENT [id number] lt knee JAEL MARIELA N 04/02 Released w/o Limitations [employer](P hysical Therapy ) [employer](Phy sical Therapy) OUTPATIENT [id number] lt knee MARIELA ELDER N 04/04 Released w/o Limitations [employer](P hysical Therapy ) [employer](Phy sical Therapy) OUTPATIENT [id number] lt knee MARIELA ELDER N 04/06 Released w/o Limitations [employer](P hysical Therapy ) [employer](Phy sical Therapy) OUTPATIENT [id number] lt knee ERNESTO BIRMINGHAM C 04/11 Released w/o Limitations [employer](P hysical Therapy ) [employer](Phy sical Therapy) OUTPATIENT [id number] lt knee MARIELA ELDER N 04/16 Released w/o Limitations [employer](P hysical Therapy ) [employer](Phy sical Therapy) OUTPATIENT [id number] f/u lt knee NOLABECKIEMANDY S 04/18 Released w/o Limitations [employer](P hysical Therapy ) [employer](Phy sical Therapy) OUTPATIENT [id number] left knee ERNESTO BIRMINGHAM C 04/20 Released w/o Limitations [employer](P hysical Therapy ) [employer](Phy sical Therapy) OUTPATIENT [id number] left knee ERNESTO BIRMINGHAM C 04/22 Released w/o Limitations [employer](P hysical Therapy ) [employer]([facility] Team A) TELE CONSULT [id number] Notes Entered by: MARIA R BASS 23 Apr 2013 0940 ------- ------- ------- ------- -- BLOOD IN URINE FAUSTINO CLARK 04/23 [employer]([facility] Team A) [employer]([facility] Team B) OUTPATIENT [id number] UTI positiv e labs COLT VILLAREAL 04/23 Released w/o Limitations [employer]([facility] Team B) [employer](Phy sical Therapy) OUTPATIENT [id number] left MARIELA Leong N 04/24 Released w/o Limitations [employer](P hysical Therapy ) [employer](Phy sical Therapy) OUTPATIENT [id number] left MARIELA Leong N 04/26 Released w/o Limitations [employer](P hysical Therapy ) [employer](Phy sical Therapy) OUTPATIENT [id number] left MARIELA Leong N 04/29 Released w/o Limitations [employer](P hysical Therapy ) [employer](Phy sical Therapy) OUTPATIENT [id number] left MARIELA Leong N 05/02 Released w/o Limitations [employer](P hysical Therapy ) [employer](Ort hopedic Clinic) OUTPATIENT [id number] f/u post op LISBETH MCDANIELS 05/03 Released w/o Limitations [employer](O [facility]oped ic Clinic) [employer]) TELE CONSULT [id number] Notes Entered by: MARGO CEJA 03 May 2013 1609 ------- ------- ------- ------- -- Overdue Mammogr am MARGO CEJA 05/03 Referred for Appointment [employer]([facility]agem ent) [employer](Phy sical Therapy) OUTPATIENT [id number] left MARIELA Leong N 05/04 Released w/o Limitations [employer](P hysical Therapy ) [employer](Phy sical Therapy) OUTPATIENT [id number] left knee ERNESTO BIRMINGHAM C 05/06 Released w/o Limitations [employer](P hysical Therapy ) [employer](Phy sical Therapy) OUTPATIENT [id number] left MARIELA Leong N 05/09 Released w/o Limitations [employer](P hysical Therapy ) [employer](Phy sical Therapy) OUTPATIENT [id number] f/u left knee MANDY MERRILL 05/15 Released w/o Limitations [employer](P hysical Therapy ) [employer](Phy sical Therapy) OUTPATIENT [id number] left knee MARIELA ELDER N 05/16 Released w/o Limitations [employer](P hysical Therapy ) [employer](Phy sical Therapy) OUTPATIENT [id number] left MARIELA Leong N 05/18 Released w/o Limitations [employer](P hysical Therapy ) [employer](Phy sical Therapy) OUTPATIENT [id number] left knee MARIELA ELDER N 05/20 Released w/o Limitations [employer](P hysical Therapy ) [employer](Phy sical Therapy) OUTPATIENT [id number] left MARIELA Leong N 05/24 Released w/o Limitations [employer](P hysical Therapy ) [employer](Phy sical Therapy) OUTPATIENT [id number] left MARIELA Leong N 05/27 Released w/o Limitations [employer](P hysical Therapy ) [employer](Phy sical Therapy) OUTPATIENT [id number] AHLTA MARIELA ELDER N 05/29 Released w/o Limitations [employer](P hysical Therapy ) [employer](Phy sical Therapy) OUTPATIENT [id number] left MARIELA Leong N 06/07 Released w/o Limitations [employer](P hysical Therapy ) [employer](Opt ometry Clinic) OUTPATIENT [id number] ree/ contact lens rx ADEN DUVALL 06/08 Released w/o Limitations [employer](O ptometr y Clinic) [employer](Phy sical Therapy) OUTPATIENT [id number] left knee MARIELA ELDER N 06/11 Released w/o Limitations [employer](P hysical Therapy ) [employer](Phy sical Therapy) OUTPATIENT [id number] left MARIELA Leong N 06/13 Released w/o Limitations [employer](P hysical Therapy ) [employer](Phy sical Therapy) OUTPATIENT [id number] ERNESTO BIRMINGHAM 06/15 Released w/o Limitations [employer](P hysical Therapy ) [employer](Phy sical Therapy) OUTPATIENT [id number] left knee ERNESTO BIRMINGHAM 06/17 Released w/o Limitations [employer](P hysical Therapy ) [employer](Phy sical Therapy) OUTPATIENT [id number] MARIELA ELDER N 06/20 Released w/o Limitations [employer](P hysical Therapy ) [employer](Phy sical Therapy) OUTPATIENT [id number] ERNESTO BIRMINGHAM 06/21 Released w/o Limitations [employer](P hysical Therapy ) [employer](Phy sical Therapy) OUTPATIENT [id number] ERNESTO BIRMINGHAM 06/28 Released w/o Limitations [employer](P hysical Therapy ) [employer](Phy sical Therapy) OUTPATIENT [id number] left knee MANDY MERRILL 07/02 Released w/o Limitations [employer](P hysical Therapy ) [employer](Opt ometry Clinic) OUTPATIENT [id number] DFE showtim e 14:15 ADEN DUVALL 07/03 Released w/o Limitations [employer](O ptometr y Clinic) [employer](Phy sical Therapy) OUTPATIENT [id number] lt knee MARIELA ELDER N 07/11 Released w/o Limitations [employer](P hysical Therapy ) [employer](Phy sical Therapy) OUTPATIENT [id number] lt knee MARIELA ELDER N 07/18 Released w/o Limitations [employer](P hysical Therapy ) [employer](Phy sical Therapy) OUTPATIENT [id number] lt knee ERNESTO BIRMINGHAM 07/23 Released w/o Limitations [employer](P hysical Therapy ) [employer](Phy sical Therapy) OUTPATIENT [id number] Notes Entered by: ERNESTO BIRMINGHAM 26 Jul 2013 1029 ------- ------- ------- ------- -- L knee pain ERNESTO BIRMINGHAM 07/26 Released w/o Limitations [employer](P hysical Therapy ) [employer](Phy sical Therapy) OUTPATIENT [id number] lt knee ERNESTO BIRMINGHAM 07/29 Released w/o Limitations [employer](P hysical Therapy ) [employer](Mis radha [facility] Team B) OUTPATIENT [id number] medicat ion evaluat ion AMBERFAUSTINO 08/02 Released w/o Limitations [employer](Brian brito [facility] Team B) No Facility Access History [id number] 77364 11/03 No Facilit y Access [facility] [id number] 11/03 Ambulat ory Pharmac y Procedures Combined list of: 1) Procedures from Department of Veterans Affairs facilities going back up to thelast 18 months, not all VA non-surgical procedures are included; 2) All procedures from the Department of Defense facilities. Procedure Procedure Type Code Date Perfomer Comments Sourc e No data available for this section [facility] THERAPEUTIC PROCEDURE,1 OR MORE AREAS,EACH 15 MINUTES;NEUROMUSCUL AR REEDUCATION OF MOVEMENT,BALANCE,CO ORDINATION,KINESTHE TIC SENSE,POSTURE,AND/O R PROPRIOCEPTION FOR SITTING AND/OR STANDING ACTIVITIES [facility] CASE MANAGEMENT, EACH 15 MINUTES [facility] THERAPEUTIC PROCEDURE,1 OR MORE AREAS,EACH 15 MINUTES;NEUROMUSCUL AR REEDUCATION OF MOVEMENT,BALANCE,CO ORDINATION,KINESTHE TIC SENSE,POSTURE,AND/O R PROPRIOCEPTION FOR SITTING AND/OR STANDING ACTIVITIES [facility] POSTOPERATIVE FOLLOW-UP VISIT, NORMALLY INCLUDED IN THE SURGICAL PACKAGE, INDICATE THAT EVALUATION & MANAGEMENT SERVICE WAS PERFORMED DURING A POSTOPERATIVE PERIOD REASON RELATED ORIGINAL PROCEDURE [facility] THERAPEUTIC PROCEDURE,1 OR MORE AREAS,EACH 15 MINUTES;NEUROMUSCUL AR REEDUCATION OF MOVEMENT,BALANCE,CO ORDINATION,KINESTHE TIC SENSE,POSTURE,AND/O R PROPRIOCEPTION FOR SITTING AND/OR STANDING ACTIVITIES [facility] THERAPEUTIC PROCEDURE,1 OR MORE AREAS,EACH 15 MINUTES;NEUROMUSCUL AR REEDUCATION OF MOVEMENT,BALANCE,CO ORDINATION,KINESTHE TIC SENSE,POSTURE,AND/O R PROPRIOCEPTION FOR SITTING AND/OR STANDING ACTIVITIES [facility] THERAPEUTIC PROCEDURE,1 OR MORE AREAS,EACH 15 MINUTES;NEUROMUSCUL AR REEDUCATION OF MOVEMENT,BALANCE,CO ORDINATION,KINESTHE TIC SENSE,POSTURE,AND/O R PROPRIOCEPTION FOR SITTING AND/OR STANDING ACTIVITIES [facility] THERAPEUTIC PROCEDURE,1 OR MORE AREAS,EACH 15 MINUTES;NEUROMUSCUL AR REEDUCATION OF MOVEMENT,BALANCE,CO ORDINATION,KINESTHE TIC SENSE,POSTURE,AND/O R PROPRIOCEPTION FOR SITTING AND/OR STANDING ACTIVITIES [facility] THERAPEUTIC PROCEDURE,1 OR MORE AREAS,EACH 15 MINUTES;NEUROMUSCUL AR REEDUCATION OF MOVEMENT,BALANCE,CO ORDINATION,KINESTHE TIC SENSE,POSTURE,AND/O R PROPRIOCEPTION FOR SITTING AND/OR STANDING ACTIVITIES [facility] PHYSICAL THERAPY EVALUATION [facility] POSTOPERATIVE FOLLOW-UP VISIT, NORMALLY INCLUDED IN THE SURGICAL PACKAGE, INDICATE THAT EVALUATION & MANAGEMENT SERVICE WAS PERFORMED DURING A POSTOPERATIVE PERIOD REASON RELATED ORIGINAL PROCEDURE [facility] CASE MANAGEMENT, EACH 15 MINUTES [facility] EXCISION OF SEMILUNAR CARTILAGE OF KNEE [facility] OTHER REPAIR OF KNEE [facility] THERAPEUTIC PROCEDURE, 1 OR MORE AREAS, EACH 15 MINUTES; THERAPEUTIC EXERCISES TO DEVELOP STRENGTH AND ENDURANCE, RANGE OF MOTION AND FLEXIBILITY [facility] POSTOPERATIVE FOLLOW-UP VISIT, NORMALLY INCLUDED IN THE SURGICAL PACKAGE, INDICATE THAT EVALUATION & MANAGEMENT SERVICE WAS PERFORMED DURING A POSTOPERATIVE PERIOD REASON RELATED ORIGINAL PROCEDURE [facility] THERAPEUTIC ACTIVITIES, DIRECT (ONE-ON-ONE) PATIENT CONTACT (USE OF DYNAMIC ACTIVITIES TO IMPROVE FUNCTIONAL PERFORMANCE), EACH 15 MINUTES [facility] POSTOPERATIVE FOLLOW-UP VISIT, NORMALLY INCLUDED IN THE SURGICAL PACKAGE, INDICATE THAT EVALUATION & MANAGEMENT SERVICE WAS PERFORMED DURING A POSTOPERATIVE PERIOD REASON RELATED ORIGINAL PROCEDURE [facility] THERAPEUTIC PROCEDURE, 1 OR MORE AREAS, EACH 15 MINUTES; GAIT TRAINING (INCLUDES STAIR CLIMBING) [facility] SELF-CARE/HOME MANAGMENT TRAIN (EG,ACT OF DAILY LIVING (ADL) &COMPENSAT TRAIN,MEAL PREPARATION,SAFETY PROCS,AND INSTRUCT IN USE OF ASST TECHNOLOGY DEV/ADPT EQUIP) DIR ONE-ON-ONE CONT,EA 15 MINUTES [facility] POSTOPERATIVE FOLLOW-UP VISIT, NORMALLY INCLUDED IN THE SURGICAL PACKAGE, INDICATE THAT EVALUATION & MANAGEMENT SERVICE WAS PERFORMED DURING A POSTOPERATIVE PERIOD REASON RELATED ORIGINAL PROCEDURE [facility] OCCUPATIONAL THERAPY EVALUATION [facility] THERAPEUTIC ACTIVITIES, DIRECT (ONE-ON-ONE) PATIENT CONTACT (USE OF DYNAMIC ACTIVITIES TO IMPROVE FUNCTIONAL PERFORMANCE), EACH 15 MINUTES [facility] POSTOPERATIVE FOLLOW-UP VISIT, NORMALLY INCLUDED IN THE SURGICAL PACKAGE, INDICATE THAT EVALUATION & MANAGEMENT SERVICE WAS PERFORMED DURING A POSTOPERATIVE PERIOD REASON RELATED ORIGINAL PROCEDURE [facility] ARTHROSCOPY, KNEE, SURGICAL; OSTEOCHONDRAL ALLOGRAFT (EG, MOSAICPLASTY) 013 [facility] 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), LIMB OR TRUNK 010 [facility] 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), LIMB OR TRUNK 010 [facility] THERAPEUTIC PROCEDURE, 1 OR MORE AREAS, EACH 15 MINUTES; THERAPEUTIC EXERCISES TO DEVELOP STRENGTH AND ENDURANCE, RANGE OF MOTION AND FLEXIBILITY 009 [facility] THERAPEUTIC PROCEDURE, 1 OR MORE AREAS, EACH 15 MINUTES; THERAPEUTIC EXERCISES TO DEVELOP STRENGTH AND ENDURANCE, RANGE OF MOTION AND FLEXIBILITY 009 [facility] 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), LIMB OR TRUNK 009 [facility] INJECTION OF SCLEROSANT; MULTIPLE INCOMPETENT VEINS (OTHER THAN TELANGIECTASIA), SAME LEG 008 [facility] UNLISTED SPECIAL SERVICE, PROCEDURE OR REPORT [facility] DUPLEX SCAN OF EXTREMITY VEINS INCLUDING RESPONSES TO COMPRESSION AND OTHER MANEUVERS; UNILATERAL OR LIMITED STUDY 008 [facility] SCREENING PAPANICOLAOU SMEAR; OBTAINING, PREPARING AND CONVEYANCE OF CERVICAL OR VAGINAL SMEAR TO LABORATORY 008 [facility] SCREENING PAPANICOLAOU SMEAR; OBTAINING, PREPARING AND CONVEYANCE OF CERVICAL OR VAGINAL SMEAR TO LABORATORY 006 [facility] OTHER BILATERAL LIGATION AND DIVISION OF FALLOPIAN TUBES 006 [facility] LOW CERVICAL SECTION 006 [facility] ANESTHESIA FOR DELIVERY FOLLOWING NEURAXIAL LABOR ANALGESIA/ANESTHESI A (LIST SEPARATELY ADDITION TO CODE FOR PRIMARY PROCEDURE PERFORMED) 006 [facility] HISTORY&PHYSICAL (OUTPATIENT/OFFICE) RELATED SURGICAL PROCEDURE (LIST SEPARATELY ADDITION CD, APPROPRIATE EVAL & MGT SERVICE) 006 [facility] SUBSEQ CARE VISIT () [EXCLS:PATIENTS WHO ARE SEEN FOR A CONDITION UNREL TO / CARE (EG,AN UP RESPIR INFECT;PATIENTS SEEN FOR CONSULTATION ONLY,NOT FOR CONT CARE)] [facility] SUBSEQ CARE VISIT () [EXCLS:PATIENTS WHO ARE SEEN FOR A CONDITION UNREL TO / CARE (EG,AN UP RESPIR INFECT;PATIENTS SEEN FOR CONSULTATION ONLY,NOT FOR CONT CARE)] [facility] SUBSEQ CARE VISIT () [EXCLS:PATIENTS WHO ARE SEEN FOR A CONDITION UNREL TO / CARE (EG,AN UP RESPIR INFECT;PATIENTS SEEN FOR CONSULTATION ONLY,NOT FOR CONT CARE)] [facility] SUBSEQ CARE VISIT () [EXCLS:PATIENTS WHO ARE SEEN FOR A CONDITION UNREL TO / CARE (EG,AN UP RESPIR INFECT;PATIENTS SEEN FOR CONSULTATION ONLY,NOT FOR CONT CARE)] [facility] SUBSEQ CARE VISIT () [EXCLS:PATIENTS WHO ARE SEEN FOR A CONDITION UNREL TO / CARE (EG,AN UP RESPIR INFECT;PATIENTS SEEN FOR CONSULTATION ONLY,NOT FOR CONT CARE)] [facility] ULTRASOUND, UTERUS, REAL TIME WITH IMAGE DOCUMENTATION,TRANS VAGINAL [facility] SUBSEQ CARE VISIT () [EXCLS:PATIENTS WHO ARE SEEN FOR A CONDITION UNREL TO / CARE (EG,AN UP RESPIR INFECT;PATIENTS SEEN FOR CONSULTATION ONLY,NOT FOR CONT CARE)] [facility] ULTRASOUND, UTERUS, REAL TIME WITH IMAGE DOCUMENTATION,TRANS VAGINAL [facility] MEDICAL NUTRITION THERAPY; GROUP (2 OR MORE INDIVIDUAL(S)), EACH 30 MINUTES 005 [facility] CERVICAL OR VAGINAL CANCER SCREENING; PELVIC AND CLINICAL BREAST EXAMINATION 004 [facility] 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), LIMB OR TRUNK 003 [facility] SCREENING PAPANICOLAOU SMEAR; OBTAINING, PREPARING AND CONVEYANCE OF CERVICAL OR VAGINAL SMEAR TO LABORATORY 003 [facility] NONINVASIVE EAR OR PULSE OXIMETRY FOR OXYGEN SATURATION; SINGLE DETERMINATION [facility] ORTHOTIC(S) FITTING AND TRAINING, UPPER EXTREMITY(IES), LOWER EXTREMITY(IES), AND/OR TRUNK, EACH 15 MINUTES 002 [facility] ORTHOTIC(S) FITTING AND TRAINING, UPPER EXTREMITY(IES), LOWER EXTREMITY(IES), AND/OR TRUNK, EACH 15 MINUTES 002 [facility] DESTRUCTION (EG, LASER SURGERY, ELECTROSURGERY, CRYOSURGERY, CHEMOSURGERY, SURGICAL CURETTEMENT), PREMALIGNANT LESIONS (EG, ACTINIC KERATOSES); FIRST LESION [facility] CERVICAL OR VAGINAL CANCER SCREENING; PELVIC AND CLINICAL BREAST EXAMINATION [facility] THERAPEUTIC PROCEDURE, 1 OR MORE AREAS, EACH 15 MINUTES; THERAPEUTIC EXERCISES TO DEVELOP STRENGTH AND ENDURANCE, RANGE OF MOTION AND FLEXIBILITY [facility] THERAPEUTIC PROCEDURE, 1 OR MORE AREAS, EACH 15 MINUTES; THERAPEUTIC EXERCISES TO DEVELOP STRENGTH AND ENDURANCE, RANGE OF MOTION AND FLEXIBILITY [facility] THERAPEUTIC PROCEDURE, 1 OR MORE AREAS, EACH 15 MINUTES; THERAPEUTIC EXERCISES TO DEVELOP STRENGTH AND ENDURANCE, RANGE OF MOTION AND FLEXIBILITY [facility] THERAPEUTIC PROCEDURE, 1 OR MORE AREAS, EACH 15 MINUTES; THERAPEUTIC EXERCISES TO DEVELOP STRENGTH AND ENDURANCE, RANGE OF MOTION AND FLEXIBILITY [facility] THERAPEUTIC PROCEDURE, 1 OR MORE AREAS, EACH 15 MINUTES; THERAPEUTIC EXERCISES TO DEVELOP STRENGTH AND ENDURANCE, RANGE OF MOTION AND FLEXIBILITY [facility] OPHTHALMOLOGICAL SERVICES: MEDICAL EXAMINATION AND EVALUATION, WITH INITIATION OR CONTINUATION OF DIAGNOSTIC AND TREATMENT PROGRAM; COMPREHENSIVE, ESTABLISHED PATIENT, 1 OR MORE VISITS [facility] THERAPEUTIC PROCEDURE, 1 OR MORE AREAS, EACH 15 MINUTES; THERAPEUTIC EXERCISES TO DEVELOP STRENGTH AND ENDURANCE, RANGE OF MOTION AND FLEXIBILITY [facility] THERAPEUTIC PROCEDURE, 1 OR MORE AREAS, EACH 15 MINUTES; THERAPEUTIC EXERCISES TO DEVELOP STRENGTH AND ENDURANCE, RANGE OF MOTION AND FLEXIBILITY [facility] THERAPEUTIC PROCEDURE, 1 OR MORE AREAS, EACH 15 MINUTES; THERAPEUTIC EXERCISES TO DEVELOP STRENGTH AND ENDURANCE, RANGE OF MOTION AND FLEXIBILITY 014 [facility] THERAPEUTIC PROCEDURE, 1 OR MORE AREAS, EACH 15 MINUTES; THERAPEUTIC EXERCISES TO DEVELOP STRENGTH AND ENDURANCE, RANGE OF MOTION AND FLEXIBILITY 014 [facility] THERAPEUTIC PROCEDURE, 1 OR MORE AREAS, EACH 15 MINUTES; THERAPEUTIC EXERCISES TO DEVELOP STRENGTH AND ENDURANCE, RANGE OF MOTION AND FLEXIBILITY 014 [facility] THERAPEUTIC PROCEDURE, 1 OR MORE AREAS, EACH 15 MINUTES; THERAPEUTIC EXERCISES TO DEVELOP STRENGTH AND ENDURANCE, RANGE OF MOTION AND FLEXIBILITY [facility] THERAPEUTIC PROCEDURE, 1 OR MORE AREAS, EACH 15 MINUTES; THERAPEUTIC EXERCISES TO DEVELOP STRENGTH AND ENDURANCE, RANGE OF MOTION AND FLEXIBILITY [facility] PRESCRIPTION OF OPTICAL AND PHYSICAL [...] AND ENDURANCE, RANGE OF MOTION AND FLEXIBILITY [facility] POSTOPERATIVE FOLLOW-UP VISIT, NORMALLY INCLUDED IN THE SURGICAL PACKAGE, INDICATE THAT EVALUATION & MANAGEMENT SERVICE WAS PERFORMED DURING A POSTOPERATIVE PERIOD REASON RELATED ORIGINAL PROCEDURE [facility] THERAPEUTIC PROCEDURE, 1 OR MORE AREAS, [...] AND ENDURANCE, RANGE OF MOTION AND FLEXIBILITY [facility] APPLICATION OF A MODALITY TO 1 OR MORE AREAS; ELECTRICAL STIMULATION (UNATTENDED) 03/05/2 014 DoD APPLICATION OF A MODALITY TO [...] ENDURANCE, RANGE OF MOTION AND FLEXIBILITY Do[facility] APPLICATION OF A MODALITY TO 1 [...] OR MORE AREAS; HOT OR COLD PACKS Do[facility] APPLICATION OF A MODALITY TO 1 [...] EVALUATION 013 [facility] DETERMINATION OF REFRACTIVE STATE 012 [facility] OPHTHALMOLOGICAL SERVICES: MEDICAL EXAMINATION AND EVALUATION, WITH INITIATION OR CONTINUATION OF DIAGNOSTIC AND TREATMENT PROGRAM; INTERMEDIATE, ESTABLISHED PATIENT 012 [facility] DETERMINATION OF REFRACTIVE STATE 012 [facility] OPHTHALMOLOGICAL SERVICES: MEDICAL EXAMINATION AND EVALUATION, WITH INITIATION OR CONTINUATION OF DIAGNOSTIC AND TREATMENT PROGRAM; INTERMEDIATE, ESTABLISHED PATIENT 012 [facility] OPHTHALMOLOGICAL SERVICES: MEDICAL EXAMINATION AND EVALUATION, WITH INITIATION OR CONTINUATION OF DIAGNOSTIC AND TREATMENT PROGRAM; INTERMEDIATE, ESTABLISHED PATIENT 011 [facility]D PRESCRIPTION OF OPTICAL AND PHYSICAL CHARACTERISTICS OF AND FITTING OF CONTACT LENS, WITH MEDICAL SUPERVISION OF ADAPTATION; CORNEAL LENS, BOTH EYES, EXCEPT FOR APHAKIA 011 DoD DETERMINATION OF REFRACTIVE STATE 011 DoD DETERMINATION OF REFRACTIVE STATE 011 DoD DETERMINATION OF REFRACTIVE STATE 011 DoD COMPRESSION BANDAGE, ROLL 011 [facility] THERAPEUTIC PROCEDURE, 1 OR MORE AREAS, EACH 15 MINUTES; THERAPEUTIC EXERCISES TO DEVELOP STRENGTH AND ENDURANCE, RANGE OF MOTION AND FLEXIBILITY 011 [facility] THERAPEUTIC PROCEDURE, 1 OR MORE AREAS, EACH 15 MINUTES; THERAPEUTIC EXERCISES TO DEVELOP STRENGTH AND ENDURANCE, RANGE OF MOTION AND FLEXIBILITY 010 [facility] OSTEOPATHIC MANIPULATIVE TREATMENT (OMT); 1-2 BODY REGIONS INVOLVED 010 [facility] Orthopedic Splinting Long Arm Orthopedic Splinting Long Arm [id number] NATALIA GUALLPA Compre ion bandage, roll 011 NATALIA GUALLPA Splint 011 NATALIA GUALLPA Posterior elbow splint applied to left elbow with 18in of 4 Orthoglass, secured with 3 bandage roll per orders @ 2220L. Pulse motor and sensory checked prior and post procedure. Pt able to move finger and states she has sensation in distal digits. Em[facility] Metcalf isted Exercises For ROM Assisted Exercises For ROM 97714 011 NASEEM MARINO Physical Therapy Service Re-Evaluation Physical Therapy Service Re-Evaluation [id number] NASEEM MARINO A isted Exercises For ROM Assisted Exercises For ROM 66410 010 NASEEM MARINO Osteopathic Manip Treatment (OMT) 3-4 Body Regions Involved Osteopathic Manip Treatment (OMT) 3-4 Body Regions Involved [id number] NASEEM MARINO Physical Therapy Service Re-Evaluation Physical Therapy Service Re-Evaluation 03627 010 NASEEM MARINO Osteopathic Manip Treatment (OMT) 1-2 Body Regions Involved Osteopathic Manip Treatment (OMT) 1-2 Body Regions Involved 11245 010 NASEEM MARINO isted Exercises For ROM Assisted Exercises For ROM 96088 010 NASEEM MARINO Physical Therapy Service Evaluation Physical Therapy Service Evaluation 03629 010 NASEEM MARINO Sclerosing Telangiectasia Limb / Trunk Sclerosing Telangiectasia Limb / Trunk [id number] NATALIA SALES Sclerosing Multiple Veins By Injection - One Leg 010 NATALIA BENNETT Sclerosing Telangiectasia Limb / Trunk Sclerosing Telangiectasia Limb / Trunk 83796 010 NATALIA BENNETT Sclerosing Multiple Veins By Injection - One Leg 010 NATALIA BENNETT [facility] Physical Therapy: ___ Se ion Segments, 15 Minutes Each Physical Therapy: ___ Session Segments, 15 Minutes Each 52385 009 KAMLESH SMYTH [facility] A isted Exercises For ROM Assisted Exercises For ROM 10525 009 YOLANDA COLINDRES [facility] Physical Therapy Service Evaluation Physical Therapy Service Evaluation 59532 009 YOLANDA COLINDRES Sclerosing Multiple Veins By Injection - One Leg 009 NATALIA BENNETT Sclerosing Multiple Veins By Injection - One Leg 008 NATALIA BENNETT Unilateral Doppler Duplex Color-Flow Venous of Extremity Unilateral Doppler Duplex Color-Flow Venous of Extremity 23364 008 NATALIA BENNETT Screening papanicolaou smear; obtaining, preparing and conveyance of cervical or vaginal smear to laboratory 008 MATIAS ANGULO [facility] Obstetrical Services Care Only Obstetrical Services Care Only [id number] 006 IGNACIA FRASER [facility] Screening papanicolaou smear; obtaining, preparing and conveyance of cervical or vaginal smear to laboratory 006 IGNACIA FRASER [facility] OB Services Antepartum Care Only Subsequent Single Visit OB Services Antepartum Care Only Subsequent Single Visit [id number] 006 ZENOBIA KNIGHT [facility] OB Services Antepartum Care Only Subsequent Single Visit OB Services Antepartum Care Only Subsequent Single Visit 0502F 006 RADHA MAHER [facility] Modalities Electrical Stimulation Unattended Modalities Electrical Stimulation Unattended 75359 013 MARIELA ELDER [facility] Physical Therapy: ___ Se ion Segments, 15 Minutes Each Physical Therapy: ___ Session Segments, 15 Minutes Each 14550 013 MARIELA ELDER [facility] Modalities Electrical Stimulation Unattended Modalities Electrical Stimulation Unattended 03429 013 MARIELA ELDER [facility] Physical Therapy: ___ Se ion Segments, 15 Minutes Each Physical Therapy: ___ Session Segments, 15 Minutes Each 24277 013 ELDER, MARIELA N [facility] Modalities Cryotherapy Cold Packs Modalities Cryotherapy Cold Packs 60313 013 ELDER, MARIELA N [facility] Modalities Cryotherapy Cold Packs Modalities Cryotherapy Cold Packs 51201 013 ELDER MARIELA N [facility] Physical Therapy: ___ Se ion Segments, 15 Minutes Each Physical Therapy: ___ Session Segments, 15 Minutes Each 85825 013 ELDER, MARIELA N [facility] Modalities Electrical Stimulation Unattended Modalities Electrical Stimulation Unattended 93676 ELDER, MARIELA N [facility] Modalities Cryotherapy Cold Packs Modalities Cryotherapy Cold Packs 26188 ELDER MARIELA N [facility] Physical Therapy: ___ Se ion Segments, 15 Minutes Each Physical Therapy: ___ Session Segments, 15 Minutes Each 82043 013 JAEL MARIELA N [facility] Modalities Electrical Stimulation Unattended Modalities Electrical Stimulation Unattended 20891 JAEL MARIELA Giovanny [facility] Modalities Cryotherapy Cold Packs Modalities Cryotherapy Cold Packs 91239 013 ELDER, MARIELA N [facility] Modalities Electrical Stimulation Unattended Modalities Electrical Stimulation Unattended 54732 ELDER, MARIELA N [facility] Physical Therapy: ___ Se ion Segments, 15 Minutes Each Physical Therapy: ___ Session Segments, 15 Minutes Each 26695 013 ELDER, MARIELA N [facility] Modalities Cryotherapy Cold Packs Modalities Cryotherapy Cold Packs 82772 013 ELDER, MARIELA N [facility] Modalities Electrical Stimulation Unattended Modalities Electrical Stimulation Unattended 56297 013 ELDER MARIELA N [facility] Physical Therapy: ___ Se ion Segments, 15 Minutes Each Physical Therapy: ___ Session Segments, 15 Minutes Each 98630 013 JAEL MARIELA N [facility] Modalities Cryotherapy Cold Packs Modalities Cryotherapy Cold Packs 39540 013 ELDER, MARIELA N [facility] Modalities Electrical Stimulation Unattended Modalities Electrical Stimulation Unattended 46387 013 ELDERLISA MetcalfH N [facility] Physical Therapy: ___ Se ion Segments, 15 Minutes Each Physical Therapy: ___ Session Segments, 15 Minutes Each 29034 MARIELA ELDER [facility] Physical Therapy Service Evaluation Physical Therapy Service Evaluation 93673 MANDY MERRILL [facility] Postoperative Visit, Without Charge Postoperative Visit, Without Charge 48618 BEAU CULVER [facility] Physical Therapy Neuromuscular Re-education Physical Therapy Neuromuscular Re-education 13415 DELMAR NOVAK Modalities Cryotherapy Cold Packs Modalities Cryotherapy Cold Packs 59462 DELMAR NOVAK A isted Exercises For ROM Assisted Exercises For ROM 49436 DELMAR NOVAK Physical Therapy: ___ Se ion Segments, 15 Minutes Each Physical Therapy: ___ Session Segments, 15 Minutes Each 86869 DELMAR NOVAK Case Management, each 15 minutes CAMERON HERNANDEZ Coordinated care fee, maintenance rate CAMERON HERNANDEZ Patient Counseling Medical Management Individual Patient Patient Counseling Medical Management Individual Patient 04363 CAMERON HERNANDEZ Physical Therapy Neuromuscular Re-education Physical Therapy Neuromuscular Re-education 08748 JANES العراقي Modalities Cryotherapy Cold Packs Modalities Cryotherapy Cold Packs 74666 JANES العراقي A isted Exercises For ROM Assisted Exercises For ROM 41699 JANES العراقي Physical Therapy: ___ Se ion Segments, 15 Minutes Each Physical Therapy: ___ Session Segments, 15 Minutes Each 84435 JANES العراقي Physical Therapy Neuromuscular Re-education Physical Therapy Neuromuscular Re-education 35761 DELMAR NOVAK Modalities Cryotherapy Cold Packs Modalities Cryotherapy Cold Packs 06962 DELMAR NOVAK A isted Exercises For ROM Assisted Exercises For ROM 60066 DELMAR NOVAK Physical Therapy: ___ Se ion Segments, 15 Minutes Each Physical Therapy: ___ Session Segments, 15 Minutes Each 85118 DELMAR NOVAK [facility] Physical Therapy Neuromuscular Re-education Physical Therapy Neuromuscular Re-education 27597 JANES العراقي Modalities Cryotherapy Cold Packs Modalities Cryotherapy Cold Packs 19268 JANES العراقي A isted Exercises For ROM Assisted Exercises For ROM 60823 JANES العراقي Physical Therapy: ___ Se ion Segments, 15 Minutes Each Physical Therapy: ___ Session Segments, 15 Minutes Each 11138 JANES العراقي Physical Therapy Neuromuscular Re-education Physical Therapy Neuromuscular Re-education 79018 JANES العراقي Modalities Cryotherapy Cold Packs Modalities Cryotherapy Cold Packs 83795 JANES العراقي A isted Exercises For ROM Assisted Exercises For ROM 08347 JANES العراقي Physical Therapy: ___ Se ion Segments, 15 Minutes Each Physical Therapy: ___ Session Segments, 15 Minutes Each 15841 JANES العراقي Postoperative Visit, Without Charge Postoperative Visit, Without Charge 76654 BEAU CULVER PT A e ment Kinetic Training PT Assessment Kinetic Training 30215 SARAH SEYMOUR [facility] Physical Therapy: ___ Se ion Segments, 15 Minutes Each Physical Therapy: ___ Session Segments, 15 Minutes Each 54622 SARAH SEYMOUR Physical Therapy Service Evaluation Physical Therapy Service Evaluation 35143 SARAH SEYMOUR Physical Therapy: ___ Se ion Segments, 15 Minutes Each Physical Therapy: ___ Session Segments, 15 Minutes Each 82587 MARIELA JHA [facility] Physical Therapy Gait Training Physical Therapy Gait Training 51407 013 AQUILINO GALAN PT A e ment Kinetic Training PT Assessment Kinetic Training 29389 AQUILINO GALAN Patient Training And Self-Care Skills Patient Training And Self-Care Skills 19158 RO ALAN M x 25 min DoD Phys Therapy Education Self Care Training - Per 15 Minutes Phys Therapy Education Self Care Training - Per 15 Minutes 40321 EARL GAO total time: 30 min. [facility] Occupational Therapy Evaluation Occupational Therapy Evaluation 09596 EARL GAO total time: 20 min. [facility] PT A e ment Kinetic Training PT Assessment Kinetic Training 32953 SANDYMATHEW [facility] Physical Therapy Service Evaluation Physical Therapy Service Evaluation [address] [facility] Physical Therapy Gait Training Physical Therapy Gait Training 59955 SANDYMATHEW [facility] Traction Pelvic Traction Pelvic 86301 MAIK BURNHAM 60# DoD Traction Pelvic Traction Pelvic 45754 MAIK BURNHAM 60# DoD Traction Pelvic Traction Pelvic 42982 MAIK BURNHAM 60# DoD A isted Exercises For ROM Assisted Exercises For ROM 39118 013 MAIK BURNHAM DoD Traction Pelvic Traction Pelvic 45489 013 MAIK BURNHAM DoD A isted Exercises For ROM Assisted Exercises For ROM 60295 013 MAIK BURNHAM DoD Traction Pelvic Traction Pelvic 91961 013 MAIK [place]NH[place] 55# DoD Traction Pelvic Traction Pelvic 32503 013 ERNESTO [place] DoD Traction Pelvic Traction Pelvic 55943 013 MAIK BURNHAM 45# DoD Traction Pelvic Traction Pelvic 25812 013 MAIK BURNHAM 45# DoD Physical Therapy Service Evaluation Physical Therapy Service Evaluation 70463 MANDY MERRILL [facility] Determination Of Refractive State Determination Of Refractive State 91855 ARLYN MARRUFO Prescription And Fitting Bilateral Corneal Lenses (Not For Aphakia) Prescription And Fitting Bilateral Corneal Lenses (Not For Aphakia) 12727 ARLYN MARRUFO Ophthalmological Prior Patient Start Intermediate Level Care Ophthalmological Prior Patient Start Intermediate Level Care 43207 ARLYN MARRUFO Determination Of Refractive State Determination Of Refractive State 41872 012 ARLYN MARRUFO Ophthalmological Prior Patient Start Comprehensive Care Ophthalmological Prior Patient Start Comprehensive Care 88949 012 ARLYN MARRUFO Ophthalmological Prior Patient Start Intermediate Level Care Ophthalmological Prior Patient Start Intermediate Level Care 41331 012 ARLYN MARRUFO Ophthalmological Prior Patient Start Intermediate Level Care Ophthalmological Prior Patient Start Intermediate Level Care 35901 011 ARLYN MARRUFO Ophthalmological Prior Patient Start Intermediate Level Care Ophthalmological Prior Patient Start Intermediate Level Care 60867 011 ARLYN MARRUFO Determination Of Refractive State Determination Of Refractive State 43030 011 ARLYN MARRUFO Prescription And Fitting Bilateral Corneal Lenses (Not For Aphakia) Prescription And Fitting Bilateral Corneal Lenses (Not For Aphakia) 11859 011 ARLYN MARRUFO Determination Of Refractive State Determination Of Refractive State 25726 011 ARLYN MARRUFO Ophthalmological Prior Patient Start Intermediate Level Care Ophthalmological Prior Patient Start Intermediate Level Care 37020 011 ARLYN MARRUFO Determination Of Refractive State Determination Of Refractive State 82894 011 ARLYN MARRUFO Ophthalmological Prior Patient Start Intermediate Level Care Ophthalmological Prior Patient Start Intermediate Level Care 52252 011 ARLYN MARRUFO Determination Of Refractive State Determination Of Refractive State 25888 011 MATHEW SELLERS Prescription And Fitting Bilateral Corneal Lenses (Not For Aphakia) Prescription And Fitting Bilateral Corneal Lenses (Not For Aphakia) 18307 011 MATHEW SELLERS Ophthalmological New Patient Start Comprehensive Care Ophthalmological New Patient Start Comprehensive Care 23317 011 MATHEW SELLERS Modalities Cryotherapy Cold Packs Modalities Cryotherapy Cold Packs 30544 011 NATALIA GUALLPA Physical Therapy: ___ Se ion Segments, 15 Minutes Each Physical Therapy: ___ Session Segments, 15 Minutes Each 78887 014 ERNESTO [place] Physical Therapy: ___ Se ion Segments, 15 Minutes Each Physical Therapy: ___ Session Segments, 15 Minutes Each 61270 014 [place], ERNESTO C DoD Physical Therapy: ___ Se ion Segments, 15 Minutes Each Physical Therapy: ___ Session Segments, 15 Minutes Each 31337 014 [place], ERNESTO C DoD Physical Therapy: ___ Se ion Segments, 15 Minutes Each Physical Therapy: ___ Session Segments, 15 Minutes Each 34223 014 ELDER, MARIELA N Emi Physical Therapy: ___ Se ion Segments, 15 Minutes Each Physical Therapy: ___ Session Segments, 15 Minutes Each 15756 014 ELDER, MARIELA N Emi Ophthalmological Prior Patient Start Comprehensive Care Ophthalmological Prior Patient Start Comprehensive Care 01884 ADEN DUVALL Physical Therapy: ___ Se ion Segments, 15 Minutes Each Physical Therapy: ___ Session Segments, 15 Minutes Each 64266 014 [place], ERNESTO C DoD Physical Therapy: ___ Se ion Segments, 15 Minutes Each Physical Therapy: ___ Session Segments, 15 Minutes Each 97840 014 [place], ERNESTO C DoD Physical Therapy: ___ Se ion Segments, 15 Minutes Each Physical Therapy: ___ Session Segments, 15 Minutes Each 97904 014 ELDER, MARIELA N DoD Physical Therapy: ___ Se ion Segments, 15 Minutes Each Physical Therapy: ___ Session Segments, 15 Minutes Each 78388 014 [place], ERNESTO C DoD Physical Therapy: ___ Se ion Segments, 15 Minutes Each Physical Therapy: ___ Session Segments, 15 Minutes Each 02587 014 ELDER, MARIELA N Emi Physical Therapy: ___ Se ion Segments, 15 Minutes Each Physical Therapy: ___ Session Segments, 15 Minutes Each 76803 014 ELDER, MARIELA N Emi Prescription And Fitting Bilateral Corneal Lenses (Not For Aphakia) Prescription And Fitting Bilateral Corneal Lenses (Not For Aphakia) 04204 ADEN DUVALL Determination Of Refractive State Determination Of Refractive State 34241 ADEN DUVALL Ophthalmological Prior Patient Start Comprehensive Care Ophthalmological Prior Patient Start Comprehensive Care 18156 ADEN DUVALL [facility] Physical Therapy: ___ Se ion Segments, 15 Minutes Each Physical Therapy: ___ Session Segments, 15 Minutes Each 89588 014 [facility]: ___ Se ion Segments, 15 Minutes Each Physical Therapy: ___ Session Segments, 15 Minutes Each 56351 014 ELDER, [facility] Physical Therapy: ___ Se ion Segments, 15 Minutes Each Physical Therapy: ___ Session Segments, 15 Minutes Each 16533 014 ELDER, [facility] Physical Therapy: ___ Se ion Segments, 15 Minutes Each Physical Therapy: ___ Session Segments, 15 Minutes Each 49130 014 [facility] Therapy: ___ Se ion Segments, 15 Minutes Each Physical Therapy: ___ Session Segments, 15 Minutes Each 27058 014 ALEXSANDRA [facility] Therapy: ___ Se ion Segments, 15 Minutes Each Physical Therapy: ___ Session Segments, 15 Minutes Each 11010 014 ELDRE, [facility] Physical Therapy: ___ Se ion Segments, 15 Minutes Each Physical Therapy: ___ Session Segments, 15 Minutes Each 014 [facility]ANDRA [facility] Therapy: ___ Se ion Segments, 15 Minutes Each Physical Therapy: ___ Session Segments, 15 Minutes Each 61880 ERNESTO [place] [facility] Physical Therapy: ___ Se ion Segments, 15 Minutes Each Physical Therapy: ___ Session Segments, 15 Minutes Each 61616 014 JAEL [facility] Postoperative Visit, Without Charge Postoperative Visit, Without Charge 19618 LISBETH MCDANIELS [facility] Physical Therapy: ___ Se ion Segments, 15 Minutes Each Physical Therapy: ___ Session Segments, 15 Minutes Each 19086 014 JAEL [facility] A isted Exercises For ROM Assisted Exercises For ROM 014 JAEL [facility] Physical Therapy: ___ Se ion Segments, 15 Minutes Each Physical Therapy: ___ Session Segments, 15 Minutes Each 17517 014 ELDERLSIA MetcalfH N [facility] Modalities Electrical Stimulation Unattended Modalities Electrical Stimulation Unattended 07036 014 ELDERLISAH N [facility] Physical Therapy: ___ Se ion Segments, 15 Minutes Each Physical Therapy: ___ Session Segments, 15 Minutes Each 15406 014 ELDERLISAH N [facility] Modalities Cryotherapy Cold Packs Modalities Cryotherapy Cold Packs 52397 014 [place], ERNESTO C [facility] Modalities Electrical Stimulation Attended Each 15 Minutes Modalities Electrical Stimulation Attended Each 15 Minutes 27750 014 [place], ERNESTO C [facility] Physical Therapy: ___ Se ion Segments, 15 Minutes Each Physical Therapy: ___ Session Segments, 15 Minutes Each 93025 014 [place], ERNESTO C [facility] Modalities Cryotherapy Cold Packs Modalities Cryotherapy Cold Packs 58047 014 ELDERLISAH N [facility] Physical Therapy: ___ Se ion Segments, 15 Minutes Each Physical Therapy: ___ Session Segments, 15 Minutes Each 55575 014 ELDERLISAH N [facility] Modalities Electrical Stimulation Attended Each 15 Minutes Modalities Electrical Stimulation Attended Each 15 Minutes 81593 014 ELDERLISA MetcalfH N [facility] Modalities Cryotherapy Cold Packs Modalities Cryotherapy Cold Packs 59409 014 [place], ERNESTO C [facility] Modalities Electrical Stimulation Attended Each 15 Minutes Modalities Electrical Stimulation Attended Each 15 Minutes 78429 014 [place], ERNESTO C [facility] Physical Therapy: ___ Se ion Segments, 15 Minutes Each Physical Therapy: ___ Session Segments, 15 Minutes Each 38265 014 [place], ERNESTO C [facility] Modalities Cryotherapy Cold Packs Modalities Cryotherapy Cold Packs 46445 014 ELDER MARIELA N [facility] Physical Therapy: ___ Se ion Segments, 15 Minutes Each Physical Therapy: ___ Session Segments, 15 Minutes Each 99953 014 ELDERLISAH N [facility] Modalities Electrical Stimulation Attended Each 15 Minutes Modalities Electrical Stimulation Attended Each 15 Minutes 02795 014 ELDERLISA MetcalfH N [facility] Modalities Cryotherapy Cold Packs Modalities Cryotherapy Cold Packs 12221 014 ELDER, MARIELA Giovanny [facility] Modalities Electrical Stimulation Attended Each 15 Minutes Modalities Electrical Stimulation Attended Each 15 Minutes [address] [facility] Giovanny [facility] Physical Therapy: ___ Se ion Segments, 15 Minutes Each Physical Therapy: ___ Session Segments, 15 Minutes Each 51747 014 ELDER, WELCH Giovanny [facility] Modalities Cryotherapy Cold Packs Modalities Cryotherapy Cold Packs [address] [facility] WELCH Giovanny [facility] Modalities Electrical Stimulation Attended Each 15 Minutes Modalities Electrical Stimulation Attended Each 15 Minutes [address] [facility] WELCH Giovanny [facility] Physical Therapy: ___ Se ion Segments, 15 Minutes Each Physical Therapy: ___ Session Segments, 15 Minutes Each 79066 014 ELDER, MARIELA Giovanny [facility] Modalities Cryotherapy Cold Packs Modalities Cryotherapy Cold Packs 43173 014 [place], ERNESTO C [facility] Modalities Electrical Stimulation Attended Each 15 Minutes Modalities Electrical Stimulation Attended Each 15 Minutes 33639 014 VALENCIA ERNESTO C [facility] Physical Therapy: ___ Se ion Segments, 15 Minutes Each Physical Therapy: ___ Session Segments, 15 Minutes Each 52615 014 [place], ERNESTO C [facility] Modalities Cryotherapy Cold Packs Modalities Cryotherapy Cold Packs 92810 014 [place], ERNESTO C [facility] Modalities Electrical Stimulation Attended Each 15 Minutes Modalities Electrical Stimulation Attended Each 15 Minutes 86869 014 [place], ERNESTO C [facility] Physical Therapy: ___ Se ion Segments, 15 Minutes Each Physical Therapy: ___ Session Segments, 15 Minutes Each 92787 014 [place], ERNESTO C [facility] Modalities Cryotherapy Cold Packs Modalities Cryotherapy Cold Packs 35841 014 [place], ERNESTO C [facility] Modalities Electrical Stimulation Attended Each 15 Minutes Modalities Electrical Stimulation Attended Each 15 Minutes 12362 014 [place], ERNESTO C [facility] Physical Therapy: ___ Se ion Segments, 15 Minutes Each Physical Therapy: ___ Session Segments, 15 Minutes Each 75614 014 [place], ERNESTO C [facility] Modalities Cryotherapy Cold Packs Modalities Cryotherapy Cold Packs 59691 014 ELDER, MARIELA Giovanny [facility] Physical Therapy Gait Training Physical Therapy Gait Training 22891 ELDER MARIELA Giovanny [facility] Modalities Electrical Stimulation Attended Each 15 Minutes Modalities Electrical Stimulation Attended Each 15 Minutes 95922 ELDER MARIELA Giovanny [facility] Physical Therapy: ___ Se ion Segments, 15 Minutes Each Physical Therapy: ___ Session Segments, 15 Minutes Each 26716 ELDER, MARIELA Giovanny [facility] Physical Therapy Gait Training Physical Therapy Gait Training 07312 ELDER MARIELA Giovanny [facility] Modalities Cryotherapy Cold Packs Modalities Cryotherapy Cold Packs [address] [facility] Modalities Electrical Stimulation Attended Each 15 Minutes Modalities Electrical Stimulation Attended Each 15 Minutes [address] [facility] Physical Therapy: ___ Se ion Segments, 15 Minutes Each Physical Therapy: ___ Session Segments, 15 Minutes Each 97474 ELDER, MARIELA Giovanny [facility] Modalities Cryotherapy Cold Packs Modalities Cryotherapy Cold Packs 88973 014 [place], ERNESTO C [facility] Modalities Electrical Stimulation Attended Each 15 Minutes Modalities Electrical Stimulation Attended Each 15 Minutes 54677 014 [place], ERNESTO C [facility] Physical Therapy: ___ Se ion Segments, 15 Minutes Each Physical Therapy: ___ Session Segments, 15 Minutes Each 17165 014 [place], ERNESTO C [facility] Modalities Cryotherapy Cold Packs Modalities Cryotherapy Cold Packs 61049 014 [place], ERNESTO C [facility] Modalities Electrical Stimulation Attended Each 15 Minutes Modalities Electrical Stimulation Attended Each 15 Minutes 43528 014 [place], ERNESTO C [facility] Physical Therapy: ___ Se ion Segments, 15 Minutes Each Physical Therapy: ___ Session Segments, 15 Minutes Each 08862 014 [place], ERNESTO C DoD Modalities Cryotherapy Cold Packs Modalities Cryotherapy Cold Packs 89114 013 [place], ERNESTO C DoD Modalities Electrical Stimulation Unattended Modalities Electrical Stimulation Unattended 97516 013 [place], ERNESTO C [facility] Physical Therapy: ___ Se ion Segments, 15 Minutes Each Physical Therapy: ___ Session Segments, 15 Minutes Each 61799 013 [place], ERNESTO C [facility] Modalities Cryotherapy Cold Packs Modalities Cryotherapy Cold Packs [address] [facility] Modalities Electrical Stimulation Unattended Modalities Electrical Stimulation Unattended [address] [facility] Physical Therapy: ___ Se ion Segments, 15 Minutes Each Physical Therapy: ___ Session Segments, 15 Minutes Each [address] [facility], MARIELA N [facility] Modalities Cryotherapy Cold Packs Modalities Cryotherapy Cold Packs [address] [facility] Modalities Electrical Stimulation Unattended Modalities Electrical Stimulation Unattended [id number] [facility] Physical Therapy: ___ Se ion Segments, 15 Minutes Each Physical Therapy: ___ Session Segments, 15 Minutes Each [id number] [facility] Modalities Cryotherapy Cold Packs Modalities Cryotherapy Cold Packs [id number] [facility] Modalities Electrical Stimulation Unattended Modalities Electrical Stimulation Unattended [id number] [facility] Physical Therapy: ___ Se ion Segments, 15 Minutes Each Physical Therapy: ___ Session Segments, 15 Minutes Each [id number] [place], [place] [facility] Modalities Cryotherapy Cold Packs Modalities Cryotherapy Cold Packs [id number] [facility] [place] [facility] Modalities Electrical Stimulation Unattended Modalities Electrical Stimulation Unattended [id number] [facility] [place] [facility] Physical Therapy: ___ Se ion Segments, 15 Minutes Each Physical Therapy: ___ Session Segments, 15 Minutes Each [id number] [place] [facility] Modalities Cryotherapy Cold Packs Modalities Cryotherapy Cold Packs [id number] [facility] [place] [facility] Social History Combined list of available smoking, tobacco, and other social history from [facility] facilities. Social History Type Response Date Comment Sourc e Sexual Orientation Ambula tory Pharmacy Gender identity Ambulator y Pharmacy Female Ambulatory Pha rmacy This section is an empty soc ial history section. DoD Assessment and Plan Combined list of future care activities from [facility] and [facility] facilities (e.g., assessment and plan notes, appointments, orders, and referrals). Additional future care activities may be listed in the Plan of Care section. Result Assessment and Plan Date Source Assessment and Plan No data available for this section 04/12/2024 Ambulatory Pharmacy Functional Status Combined list of recent functional and cognitive assessments recorded at [facility] Functional [place] Measurement (FIM) Scale: 1 = Total Assistance (Subject = 0% +), 2 = Maximal Assistance (Subject = 25% +), 3 = Moderate Assistance (Subject = 50% +), 4 = Minimal Assistance (Subject = 75% +), 5 = Supervision, 6 = Modified [place] (Device), 7 = Complete [place] (Timely, Safely). Assessment Date/Time Source Assessment Type Assessment Skill Assessment Score Assessment Details No data available for this section
== END 2024-04-12 09:07 | disposition home or self-care (01) ==
LOC: ANHIMG 09:07
PROVIDERS: PCP Physician Assistant; Visit Provider Physician Assistant
DX: Z12.31 Encounter for screening mammogram for malignant neoplasm of breast (principal)
CPT/HCPCS: 77063; 77067